=== PATIENT | male | born 1960 | race Caucasian/White ===

== ENCOUNTER 2016-03-20 16:00 | Outpatient (CLI) | payer MEDICAID | END 2016-03-20 16:01 | disposition home or self-care (01) | DX: H60.90 Unspecified otitis externa, unspecified ear (principal) ==

== ENCOUNTER 2018-03-23 08:00 | Outpatient (CLI) | payer MEDICAID ==
[2018-03-23 12:20] LABS: BASOPHILS # (AUTO) 0.1 10^3/uL (0.0-0.1); BASOPHILS % (AUTO) 1.1 %; EOSINOPHILS # (AUTO) 0.1 10^3/uL (0.0-0.7); LYMPHOCYTES # (AUTO) 1.6 10^3/uL (1.5-3.5); LYMPHOCYTES % (AUTO) 26.8 %; MEAN CORPUSCULAR HEMOGLOBIN 34.5 pg (27.0-31.0); MEAN CORPUSCULAR HGB CONC 34.9 g/dL (32.0-36.0); MEAN CORPUSCULAR VOLUME 98.7 fL (80.0-94.0); MEAN PLATELET VOLUME 8.4 fL (7.4-11.4); MONOCYTES # (AUTO) 0.8 10^3/uL (0.0-1.0); MONOCYTES % (AUTO) 13.4 %; NEUTROPHILS # (AUTO) 3.5 10^3/uL (1.5-6.6); NEUTROPHILS % (AUTO) 56.7 %; PLT - PLATELET COUNT 210 10^3/uL (130-450); RED BLOOD COUNT 4.35 10^6/uL (4.70-6.10); RED CELL DISTRIBUTION WIDTH 13.2 % (12.0-15.0); WHITE BLOOD COUNT 6.1 x10^3/uL (4.8-10.8)
[2018-03-23 13:30] LABS: ALBUMIN 3.9 g/dL (3.2-5.5); ALBUMIN/GLOBULIN RATIO 1.3 (1.0-2.2); ALKALINE PHOSPHATASE 63 IU/L (42-121); ALT ALANINE AMINOTRANSFERASE 23 IU/L (10-60); AST ASPARTATE AMINOTRANSFERASE 20 IU/L (10-42); BILIRUBIN,TOTAL 0.9 mg/dL (0.2-1.0); BUN - BLOOD UREA NITROGEN 15 mg/dL (6-20); CALCIUM 8.9 mg/dL (8.5-10.3); CARBON DIOXIDE - CO2 29 mmol/L (21-32); CHLORIDE 102 mmol/L (101-111); CHOL/HDL RATIO 2.8 (<5.0); CHOLESTEROL 143 mg/dL; CREATININE 0.7 mg/dL (0.6-1.2); GFR - MDRD 116 (>89); GLUCOSE 99 mg/dL (70-100); HDL CHOLESTEROL 52 mg/dL; LDL CHOLESTEROL,CALCULATED 75 mg/dL; LDL/HDL RATIO 1.4 (<3.6); SODIUM 136 mmol/L (135-145); TOTAL PROTEIN 6.9 g/dL (6.7-8.2); VLDL CHOLESTEROL 16 mg/dL
== END 2018-03-23 23:59 | disposition home or self-care (01) ==
LOC: LAB.WCP 08:00
PROVIDERS: ATTEND Physician Assistant Medical
DX: Z00.00 Encounter for general adult medical examination without abnormal findings (principal)
CPT/HCPCS: 36415; 80053; 80061; 83721; 84153; 84443; 85025

== ENCOUNTER 2018-06-02 09:34 | Emergency (ER) | payer MEDICAID ==
[2018-06-02] MEDS ORDERED: DEXAMETHASONE 10 MG/ML VIAL PO STA (10:39)
[2018-06-02] MEDS ORDERED: BENZONATATE 100 MG CAPSULE PO STA (10:39)
--- NOTE | 2018-06-02 10:42 | ED Physician Documentation ---
PD HPI URI - Stated complaint Stated Complaint: SOA,CHEST PX - Chief complaint Chief Complaint: Resp - History obtained from History obtained from: Patient, Friend - History of Present Illness Timing - onset: How many days ago (5) Timing duration: Days (5) Timing details: Gradual onset, Still present Associated symptoms: Fever, Chills, Sweats, Nasal congestion, Rhinorrhea, Productive cough, Dyspnea Contributing factors: Sick contact Improves by: Rest, Medication Similar symptoms before: Diagnosis (pnemonia) Recently seen: Clinic - Additional information Additional information: 57-year-old male with a history of allergic asthma has developed a cough and congestion he is bringing up yellow and green phlegm and he has been into see his doctor 2 days ago and was started on some doxycycline. He states that despite starting this antibiotic he has had no change in his symptoms and in fact they are worse. He does have an inhaler at home he does not feel that he needs to use that with this illness. Review of Systems Constitutional: reports: Fever Eyes: denies: Decreased vision Ears: denies: Ear pain Nose: reports: Rhinorrhea / runny nose, Congestion Throat: denies: Sore throat Cardiac: reports: Chest pain / pressure. denies: Palpitations, Pedal edema, Calf pain Respiratory: reports: Dyspnea, Cough GI: denies: Abdominal Pain, Nausea, Vomiting : denies: Dysuria PD PAST MEDICAL HISTORY - Past Surgical History Past Surgical History: Yes - Present Medications Home Medications: Ambulatory Orders Medication Instructions Recorded Confirmed Amox/Clav 875/125 [Augmentin] 1 each PO Q12H #20 tablet 06/02/18 Benzonatate [Tessalon Perle] 100 - 200 mg PO TID PRN #30 capsule 06/02/18 Disulfiram [Antabuse] 250 mg PO 06/02/18 Doxycycline Monohydrate 100 mg PO 06/02/18 Hydrocodone/Acetaminophen 1 - 2 each PO Q6H PRN #14 tablet 06/02/18 [Hydrocodon-Acetaminophen 5-325] Quetiapine Fumarate 50 mg PO 06/02/18 06/02/18 - Allergies Allergies/Adverse Reactions: Allergies Allergy/AdvReac Type Severity Reaction Status Date / Time No Known Drug Allergies Allergy Verified 06/02/18 09:44 - Social History Does the pt smoke?: Yes Smoking Status: Current every day smoker Does the pt drink ETOH?: Yes Does the pt have substance abuse?: No - Immunizations Immunizations are current?: Yes - POLST Patient has POLST: No PD ED PE NORMAL - Vitals Vital signs reviewed: Yes (tachy ) - General General: Alert and oriented X 3, Well developed/nourished, Other (coughing hard and frequently at this hurts. ) - HEENT HEENT: Atraumatic, PERRL, EOMI, Other (There is inflamation to the right TM with rounding of the umbo and the left is less involved. The mucous membranes are dry. 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, No motor deficit, No sensory deficit, Normal speech Eye Opening: Spontaneous Motor: Obeys Commands Verbal: Oriented GCS Score: 15 - Psych Psych: Normal mood, Normal affect Results - Vitals Vitals: Vital Signs - 24 hr 06/02/18 06/02/18 09:42 11:38 Temperature 37.1 C 37.2 C Heart Rate 115 H 98 Respiratory 22 20 Rate Blood Pressure 106/75 137/93 H O2 Saturation 92 92 Oxygen O2 Source Room air - EKG (time done) 0943 Rate: Rate (enter#) (109) Rhythm: Sinus tachycardia Outlook: RAD Ischemia: Q waves Compare to prior EKG: Old EKG unavailable Computer interpretation: Disagree with computer (I do not see any evidence of ST elevation ) - Labs Labs: Laboratory Tests 06/02/18 09:50 Influenza A (Rapid) Negative Influenza B (Rapid) Negative - Rads (name of study) chest 2-veiw Radiology: Prelim report reviewed (Impression: No definite acute airspace consolidation.), EMP read indepedently, See rad report PD MEDICAL DECISION MAKING - ED course Complexity details: reviewed results, re-evaluated patient, considered differential, d/w patient ED course: 57-year-old male with a prior history of allergic asthma and pneumonia has developed URI symptoms coughing up yellow-green phlegm and has otitis on exam. He is administered dexamethasone 10 mg orally and Tessalon. The chest x-ray is pending. Departure - Departure Disposition: 01 Home, Self Care Clinical Impression: Otitis media Qualifiers: Otitis media type: suppurative Chronicity: acute Laterality: bilateral Recurrence: not specified as recurrent Spontaneous tympanic membrane rupture: without spontaneous rupture Qualified Code(s): H66.003 - Acute suppurative otitis media without spontaneous rupture of ear drum, bilateral Condition: Stable Instructions: ED Otitis Media Acute Adult Follow-Up: Tim Trotter MD [Primary Care Provider] - Prescriptions: Amox/Clav 875/125 [Augmentin] 1 each PO Q12H #20 tablet Benzonatate [Tessalon Perle] 100 - 200 mg PO TID PRN #30 capsule PRN Reason: Cough Hydrocodone/Acetaminophen [Hydrocodon-Acetaminophen 5-325] 1 - 2 each PO Q6H PRN #14 tablet PRN Reason: pain Forms: Activity restrictions Discharge Date/Time: 06/02/18 11:39
--- NOTE | 2018-06-02 11:18 | XRAY Report ---
Reason: cough Procedure Date: 06/02/2018 Accession Number: [id number] / [id number] Procedure: XR - Chest 2 View X-Ray CPT Code: 33293 FULL RESULT: EXAM: CHEST RADIOGRAPHY EXAM DATE: 06/02/2018 10:58 AM. CLINICAL HISTORY: Cough. COMPARISON: XR CHEST PA AND LAT 03/15/2008 9:22 AM. TECHNIQUE: 2 views. FINDINGS: Lungs/Pleura: No focal opacities evident. No pleural effusion. No pneumothorax. Normal volumes. Mediastinum: Heart and mediastinal contours are stable without cardiac enlargement. Other: None. IMPRESSION: No definite acute airspace consolidation. RADIA
[2018-06-02 11:39] VITALS: BP 137/93
== END 2018-06-02 11:39 | disposition home or self-care (01) ==
LOC: ED 09:34
DX: H66.003 Acute suppurative otitis media without spontaneous rupture of ear drum, bilateral (principal); R05 Cough; R50.9 Fever, unspecified; F17.200 Nicotine dependence, unspecified, uncomplicated; R07.89 Other chest pain; J34.89 Other specified disorders of nose and nasal sinuses; R09.81 Nasal congestion; R06.00 Dyspnea, unspecified
CPT/HCPCS: 71046; 87275; 87276; 93005; 99283; A9270

== ENCOUNTER 2018-07-14 11:48 | Outpatient (CLI) | payer MEDICAID ==
--- NOTE | 2018-07-14 12:30 | XRAY Report ---
Reason: BRONCHITIS,ACUTE Procedure Date: 07/14/2018 Accession Number: [id number] / [id number] Procedure: WCP - Chest 2 View X-Ray CPT Code: 91427 FULL RESULT: EXAM: CHEST RADIOGRAPHY EXAM DATE: 07/14/2018 12:02 PM. CLINICAL HISTORY: Bronchitis, acute. COMPARISON: CHEST 2 VIEW 06/02/2018 10:44 AM. TECHNIQUE: 2 views. FINDINGS: Lungs/Pleura: No focal opacities evident. No pleural effusion. No pneumothorax. Flattening of diaphragms with high lung volumes is redemonstrated. Mediastinum: The cardiomediastinal silhouette is stable without cardiomegaly. Other: None. IMPRESSION: Suspect obstructive lung disease. No acute airspace disease is seen. RADIA
== END 2018-07-14 11:49 | disposition home or self-care (01) ==
LOC: DI.WCP 11:48
PROVIDERS: ATTEND Physician Assistant Medical
DX: J20.9 Acute bronchitis, unspecified (principal)
CPT/HCPCS: 71046

== ENCOUNTER 2018-08-15 09:38 | Outpatient (CLI) | payer OTHER, MEDICAID ==
--- NOTE | 2018-08-15 10:35 | XRAY Report ---
Reason: STRAIN OF RIGHT ACHILLES TENDON,INITIAL ENCOUNTER Procedure Date: 08/15/2018 Accession Number: [id number] / [id number] Procedure: WCP - Ankle 3 View RT CPT Code: FULL RESULT: EXAM: RIGHT ANKLE RADIOGRAPHY EXAM DATE: 08/15/2018 09:53 AM. CLINICAL HISTORY: STRAIN OF RIGHT ACHILLES Tendon, initial ENCOUNTER. COMPARISON: None. TECHNIQUE: 3 views. FINDINGS: Bones: Normal. No fractures or bone lesions. Joints: Normal. No effusion. No subluxations. The ankle mortise is normally aligned. Soft Tissues: Moderate posterior calcaneal bone spur. Small plantar calcaneal bone spur. IMPRESSION: 1. Moderate posterior calcaneal bone spur at insertion of calcaneal tendon. 2. Otherwise negative exam. RADIA
== END 2018-08-15 09:39 | disposition home or self-care (01) ==
LOC: DI.WCP 09:38
PROVIDERS: ATTEND Physician Assistant Medical
DX: M77.31 Calcaneal spur, right foot (principal)

== ENCOUNTER 2018-10-06 09:27 | Outpatient (CLI) | payer OTHER, MEDICAID ==
--- NOTE | 2018-10-07 12:19 | MRI Report ---
Reason: STRAIN OF RIGHT ACHILLES TENDON Procedure Date: 10/06/2018 Accession Number: [id number] / [id number] Procedure: MRI - Ankle RT W/O CPT Code: FULL RESULT: EXAM: RIGHT ANKLE/HINDFOOT MRI WITHOUT CONTRAST EXAM DATE: 10/06/2018 11:57 AM. CLINICAL HISTORY: STRAIN OF RIGHT ACHILLES TENDON. COMPARISON: ANKLE 3 VIEW RT 08/15/2018 9:34 AM. TECHNIQUE: Multiplanar, multisequence T1-weighted and fluid-sensitive sequences of the ankle/hindfoot without contrast. Other: None. FINDINGS: Bones and articular surfaces: Small amount of patchy subcortical marrow edema at the posterior superior aspect of the calcaneus. No significant ankle joint effusion. No talar dome osteochondral lesions. Subtalar, calcaneocuboid and talonavicular joints are unremarkable. Musculotendinous structures: There is thickening of the distal Achilles tendon. Abnormal increased signal and abnormal morphology involving the deep fibers of the Achilles tendon at and immediately adjacent to the calcaneal insertion consistent with partial tear measuring approximately 0.7 x 1.2 cm transverse and 1.7 cm craniocaudad. Anterior, posterior and posterolateral ankle tendons otherwise appear intact. Plantar fascia intact. No significant muscle fatty replacement within the field of view. Ligaments: The anterior and posterior talofibular, calcaneofibular and deltoid ligaments appear intact. IMPRESSION: 1. Tendinosis and intermediate grade partial tear at the distal Achilles tendon with adjacent reactive marrow edema at the posterior superior calcaneus. RADIA
== END 2018-10-06 09:28 | disposition home or self-care (01) ==
LOC: DI 09:27
PROVIDERS: ATTEND Physician Assistant Medical
DX: S86.011A Strain of right Achilles tendon, initial encounter (principal); R60.0 Localized edema

== ENCOUNTER 2019-07-08 14:16 | Observation (INO) | payer MEDICAID, OTHER ==
[2019-07-08] MEDS ORDERED: DILTIAZEM 125 MG in DEXTROSE 5% 100 ML IV STA (14:33)
--- NOTE | 2019-07-08 14:41 | ED Physician Documentation ---
History of Present Illness - Stated complaint Stated Complaint: FAST HR - Chief complaint Chief Complaint: Cardiac - History obtained from History obtained from: Patient - History of Present Illness Timing: How many days ago (5) Pain level max: 3 Pain level now: 2 - Additonal information Additional information: 58-year-old male presents to the emergency department complaining of palpitations for the past 4 to 5 days. He was admitted to [facility] for same on Wednesday. Placed on a diltiazem drip and discharged on diltiazem. He has been having palpitations since he went home. Has been feeling tired and short of breath as well. Came in for evaluation. Patient states he is not on anticoagulation Review of Systems Constitutional: denies: Fever, Chills Nose: denies: Rhinorrhea / runny nose, Congestion Throat: denies: Sore throat Cardiac: reports: Palpitations Respiratory: reports: Dyspnea. denies: Cough GI: denies: Abdominal Pain, Nausea, Vomiting, Diarrhea Skin: denies: Rash Musculoskeletal: denies: Neck pain, Back pain Neurologic: denies: Headache PD PAST MEDICAL HISTORY - Past Medical History Past Medical History: Yes Cardiovascular: Atrial fibrillation - Past Surgical History Past Surgical History: Yes - Present Medications Home Medications: Ambulatory Orders Medication Instructions Recorded Confirmed Albuterol Sulfate [Albuterol 2 puffs INH Q6H PRN 07/08/19 07/08/19 Sulfate Hfa] Diltiazem HCl [Diltiazem ER] 120 mg PO DAILY 07/08/19 07/08/19 predniSONE [Prednisone] 20 mg PO DAILY 07/08/19 07/08/19 - Allergies Allergies/Adverse Reactions: Allergies Allergy/AdvReac Type Severity Reaction Status Date / Time No Known Drug Allergies Allergy Verified 07/08/19 14:25 - Living Situation Living Arrangement: reports: At home - Social History Does the pt smoke?: Yes Smoking Status: Current every day smoker Does the pt drink ETOH?: Yes Does the pt have substance abuse?: No - Immunizations Immunizations are current?: Yes - POLST Patient has POLST: No PD ED PE NORMAL - Vitals Vital signs reviewed: Yes - General General: Alert and oriented X 3, No acute distress, Well developed/nourished - HEENT HEENT: Moist mucous membranes - Neck Neck: Supple, no meningeal sign - Cardiac Cardiac: No murmur, Strong equal pulses, Other (Tachycardic) - Respiratory Respiratory: No respiratory distress, Clear bilaterally - Abdomen Abdomen: Soft, Non tender, Non distended - Derm Derm: Warm and dry, No rash - Extremities Extremities: No edema, No calf tenderness / cord - Neuro Neuro: Alert and oriented X 3 - Psych Psych: Normal mood, Normal affect Results - Vitals Vitals: Vital Signs - 24 hr 07/08/19 07/08/19 07/08/19 14:25 14:29 14:31 Temperature 36.8 C Heart Rate 120 H 140 H 122 H Respiratory 18 20 16 Rate Blood Pressure 138/98 H 132/92 H 142/92 H O2 Saturation 98 95 100 07/08/19 15:01 Temperature Heart Rate 109 H Respiratory 20 Rate Blood Pressure 125/83 H O2 Saturation 96 Oxygen O2 Source Room air - EKG (time done) 1427 Rate: Rate (enter#) (149) Rhythm: Atrial flutter [place]: Posterior hemiblock (Left posterior fascicular block) QRS: Normal Ischemia: Non specific changes (Likely rate related) - Labs Labs: Laboratory Tests 07/08/19 07/08/19 07/08/19 14:45 14:45 14:45 WBC 8.2 RBC 5.45 Hgb 18.2 H Hct 52.2 H MCV 95.8 H MCH 33.4 H MCHC 34.9 RDW 12.7 Plt Count 262 MPV 9.0 Neut # (Auto) 6.7 H Lymph # (Auto) 0.9 L [place] # (Auto) 0.5 Eos # (Auto) 0.0 Baso # (Auto) 0.0 Absolute Nucleated RBC 0.00 Nucleated RBC % 0.0 Sodium 133 L Potassium 3.8 Chloride 95 L Carbon Dioxide 24 Anion Gap 14.0 H BUN 35 H Creatinine 1.4 H Estimated GFR (MDRD) 52 L Glucose 144 H Calcium 10.3 Phosphorus Magnesium Total Bilirubin 0.9 AST 30 ALT 31 Alkaline Phosphatase 70 Troponin I High Sens 5.1 Total Protein 7.5 Albumin 4.1 Globulin 3.4 Albumin/Globulin Ratio 1.2 Lipase 36 07/08/19 14:45 WBC RBC Hgb Hct MCV MCH MCHC RDW Plt Count MPV Neut # (Auto) Lymph # (Auto) [place] # (Auto) Eos # (Auto) Baso # (Auto) Absolute Nucleated RBC Nucleated RBC % Sodium Potassium Chloride Carbon Dioxide Anion Gap BUN Creatinine Estimated GFR (MDRD) Glucose Calcium Phosphorus 3.8 Magnesium 1.9 Total Bilirubin AST ALT Alkaline Phosphatase Troponin I High Sens Total Protein Albumin Globulin Albumin/Globulin Ratio Lipase - Rads (name of study) cxr Radiology: Prelim report reviewed, EMP read contemporaneously, See rad report (Hyperinflated. No active cardiopulmonary disease. ) PD MEDICAL DECISION MAKING - ED course Complexity details: reviewed results, re-evaluated patient, considered differential, d/w patient ED course: Patient is symptomatic with atrial fibrillation with rapid ventricular response. Placed on a diltiazem drip and records from [facility] were obtained. Will place him in observation for further care. Will likely need medication adjusted as well. Discussed the case Dr. Tyler, hospitalist who accepts. This document was made in part using voice recognition software. While efforts are made to proofread this document, sound alike and grammatical errors may occur. Departure - Departure Disposition: ED Place in Observation Clinical Impression: Atrial fibrillation with RVR Condition: Stable
[2019-07-08] MEDS ORDERED: DILTIAZEM 50 MG/10 ML VIAL IVP STA ×2 (14:50→15:21)
--- NOTE | 2019-07-08 14:50 | XRAY Report ---
Reason: Chest pain Procedure Date: 07/08/2019 Accession Number: [id number] / [id number] Procedure: XR - Chest 1 View X-Ray CPT Code: 07001 Final Report FULL RESULT: EXAM: CHEST RADIOGRAPHY EXAM DATE: 07/08/2019 02:39 PM. CLINICAL HISTORY: Chest pain. COMPARISON: CHEST 2 VIEW 07/14/2018 11:44 AM. TECHNIQUE: 1 view. FINDINGS: Lungs/Pleura: No focal opacities evident. No pleural effusion. No pneumothorax. Mediastinum: Within exam limitations, the cardiomediastinal contour is normal. Other: Old bilateral rib fractures IMPRESSION: Hyperinflated. No active cardiopulmonary disease. RADIA
[2019-07-08 14:51] LABS: BASOPHILS % (AUTO) 0.4 %; HGB - HEMOGLOBIN 18.2 g/dL (14.0-18.0); LYMPHOCYTES # (AUTO) 0.9 10^3/uL (1.5-3.5); LYMPHOCYTES % (AUTO) 11.4 %; MEAN CORPUSCULAR HEMOGLOBIN 33.4 pg (27.0-31.0); MEAN CORPUSCULAR HGB CONC 34.9 g/dL (32.0-36.0); MEAN CORPUSCULAR VOLUME 95.8 fL (80.0-94.0); MONOCYTES # (AUTO) 0.5 10^3/uL (0.0-1.0); MONOCYTES % (AUTO) 6.1 %; NEUTROPHILS # (AUTO) 6.7 10^3/uL (1.5-6.6); NEUTROPHILS % (AUTO) 81.4 %; PLT - PLATELET COUNT 262 10^3/uL (130-450); RED BLOOD COUNT 5.45 10^6/uL (4.70-6.10); RED CELL DISTRIBUTION WIDTH 12.7 % (12.0-15.0); WHITE BLOOD COUNT 8.2 x10^3/uL (4.8-10.8)
[2019-07-08 15:05] LABS: ALBUMIN 4.1 g/dL (3.2-5.5); ALBUMIN/GLOBULIN RATIO 1.2 (1.0-2.2); BILIRUBIN,TOTAL 0.9 mg/dL (0.2-1.0); CALCIUM 10.3 mg/dL (8.5-10.3); CREATININE 1.4 mg/dL (0.6-1.2); TOTAL PROTEIN 7.5 g/dL (6.7-8.2)
[2019-07-08 15:10] LABS: MAGNESIUM 1.9 mg/dL (1.7-2.8); PHOSPHORUS 3.8 mg/dL (2.5-4.6)
[2019-07-08] MEDS ORDERED: SODIUM CHLORIDE 0.9% 1,000 ML IV ONE ×2 (15:14)
[2019-07-08] MEDS ORDERED: ACETAMINOPHEN 325 MG TABLET PO PRN (15:19)
[2019-07-08] MEDS ORDERED: SODIUM CHLORIDE FLUSH 0.9% 10 ML SYRINGE IVP PRN (15:19)
--- NOTE | 2019-07-08 15:22 | HISTORY & PHYSICAL EXAMINATION ---
Chief Complaint - Chief Complaint Chief Complaint: Fast heart rate History of Present Illness - Admitted From Admitted From:: Home - History Obtained From Records Reviewed: Yes History obtained from: Patient, ER Physician, EMR, DC Summary from [facility] - History of Present Illness HPI Comment/Other: This is a 58-year-old male with a past medical history significant for newly diagnosed atrial fibrillation, COPD, tobacco abuse who presents today compl aining of a fast heart rate at home. He reports he was admitted last week at [facility] on July 02 after he was complaining of a cough at work. A nurse evaluated him and found him to have an elevated heart rate and so he was referred to the emergency department. He is admitted for a [facility] rapid ventricular response. He started on diltiazem drip and was ultimately was discharged on oral diltiazem 120 mg milligrams daily. He had converted to sinus rhythm prior to discharge. An echocardiogram obtained showed normal ejection fraction with a mildly dilated right ventricle with normal function. The aortic root did have a probable grade 3 atheroma consistent with ASVD. He reports after he was discharged he did well the first day but then his symptoms returned and he felt dyspneic with chest pressure. 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 He normally commutes from the [place] to work. He spent 2 nights at a motel before he got picked up by for member to go back to the [place]. He states that today he kept checking his heart rate and he noticed it had been irregular going from the 80s only up to the 120s at times. He continued to have dyspnea and chest pressure and so he came to the emergency department. He states that he has 2 different kinds of chest pain. One is a chest pressure that is present at times and is achy and dull. It is not necessarily worse with exertion but he finds it is present when his heart rate becomes elevated. His other type of chest pain is a sharp pain which comes and goes sporadically. There are no obvious alleviating or aggravating remitting factors. He currently denies having any chest pain. He does smoke a pack a day but has not smoked since he was discharged from [facility]. He has been on nicotine patch since then and has been doing well. He reports no prior history of diabetes. He was taking a baby aspirin daily up until about a month ago as he just became inconsistent with taking it. He reports no prior history of DVT and he is quite active. He is not had any recent surgeries and no family history of thrombosis. He reports his grandmother did pass away from a myocardial infarction although she was an alcoholic. He reports no other cardiac history in his family. He currently does not drink any alcohol after quitting over a year and a half ago but was previously drinking on a regular basis for approximately 20 years but quit after going through rehab. Currently complains of some dyspnea. Reports no cough. He does have a headache. Denies any nausea, vomiting, abdominal pain. In the emergency department, he was found to be afebrile with temperature of 36.8 C. His heart rate is elevated in the 140s. His blood pressure is 138/98. He was not tachypneic and saturating well on room air. Labs are significant for hemoglobin of 18.2 which is increased compared to 14.8 from his prior labs at [facility]. His creatinine is also elevated at 1.4 compared to his baseline of 0.7. His EKG showed age fibrillation with rapid ventricular respo nse without any significant ST segment changes. He was given diltiazem 10 mg IV and started on a diltiazem drip in the emergency department. His heart rates remained in the 120s and therefore medicine was consulted for admission. History - Past Medical History Cardiovascular: reports: Atrial fibrillation Respiratory: reports: COPD MRSA Hx?: No - Past Surgical History General: reports: Other (He had a left inguinal hernia repair.) Other past surgical history: He had an eye surgery when he was 14. - Family & Social History Family History Comment/Other: Reports father from infection after back surgery. He did have colon cancer. His mother from alco holism. His grandmother passed from myocardial infarction but she also suffers from alcoholism. 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 He does not drink alcohol after quitting a year and a half ago after going through rehab. He previously drank on a daily basis for over 20 years. He has a smoking a pack a day since the age of 13. He has not smoked since he was discharged from [facility] last week. He has been compliant with a nicotine patch. - POLST Patient has POLST: No Meds/Allgy - Home Medications Home Medications: Ambulatory Orders Medication Instructions Recorded Confirmed Albuterol Sulfate [Albuterol 2 puffs INH Q6H PRN 07/08/19 07/08/19 Sulfate Hfa] Diltiazem HCl [Diltiazem ER] 120 mg PO DAILY 07/08/19 07/08/19 predniSONE [Prednisone] 20 mg PO DAILY 07/08/19 07/08/19 - Allergies Allergies/Adverse Reactions: Allergies Allergy/AdvReac Type Severity Reaction Status Date / Time No Known Drug Allergies Allergy Verified 07/08/19 14:25 Review of Systems - Constitutional Constitutional: reports: Malaise. denies: Fatigue, Fever, Chills - Eyes Eyes: reports: Blurred vision, Corrective lenses - Cardiovascular Cariovascular: reports: Irregular heart rate, Palpitations, Chest pain, Exertional dyspnea, Decr. exercise tolerance. denies: Edema, Lightheadedness - Respiratory Respiratory: reports: SOB at rest, SOB with exertion. denies: Cough - Gastrointestinal Gastrointestinal: denies: Abdominal pain, Nausea, Vomiting - Genitourinary Genitourinary: denies: Dysuria, Frequency, Urgency - Musculoskeletal Musculoskeletal: denies: Muscle pain, Limited range of motion, Muscle weakness - Integumentary Integumentary: denies: Rash - Neurological Neurological: reports: Headache. denies: General weakness, Focal weakness - All Other Systems All Other Systems: reports: Reviewed and negative Prior Level of Functionality: He is independent with his ADLs. Exam - Vital Signs Reviewed Vital Signs: Yes Vital Signs: Vital Signs x48h Temp Pulse Resp BP Pulse Ox 07/08/19 15:01 109 H 20 125/83 H 96 07/08/19 14:31 122 H 16 142/92 H 100 07/08/19 14:29 140 H 20 132/92 H 95 07/08/19 14:25 36.8 C 120 H 18 138/98 H 98 - Physical Exam General Appearance: positive: No acute distress, Alert Eyes Bilateral: positive: Normal inspection, Conjunctivae nml ENT: positive: ENT inspection nml Neck: positive: Nml inspection Respiratory: positive: No respiratory distress. negative: Wheezes, Rales, Rhonchi Cardiovascular: positive: No murmur, Irregularly irregular, Tachycardia. negative: Regular rate & rhythm, Bradycardia, Systolic murmur, Diastolic murmur Abdomen: positive: Non-tender, No distention. negative: Tenderness, Guarding, Rebound Skin: positive: No rash, Warm, Dry Extremities: positive: Full ROM, No pedal edema. negative: Geri's sign/cords Neurologic/Psychiatric: positive: Oriented x3, Motor nml, Sensation nml. negative: Disoriented to person, Disoriented to place, Disoriented to time Conclusion/Plan - Problem List (1) Atrial fibrillation with RVR Conclusion/Plan: Presents once again in atrial fibrillation with rapid ventricular response and heart rates in the 140s. His troponin is negative. His echocardiogram at [facility] showed a preserved ejection fraction without any significant abnormalities. TSH at that time was within normal limits at 0.480. He received diltiazem 10 mg IV in the emergency department and placed on a diltiazem drip. At this time, we will give another 10 mg of IV diltiazem and continue the diltiazem drip. We will start him on 60 mg of oral Cardizem IV every 6 hours. We will hope to change him off the diltiazem drip this evening or tomorrow and transition to oral diltiazem. His [id number] score is 0 and therefore he does not need anticoagulation. He was on a baby aspirin before and we did discuss the risks and benefits of this. He will decide whether he would want to continue with a baby aspirin daily or not. (2) Chest pain Conclusion/Plan: Suspect his chest pain is secondary to the atrial fibrillation with rapid vent ricular response. There is low suspicion for ACS at the moment given his initial troponin is negative and his EKG does not suggest ischemia. He also does not currently have any active chest pain. An echocardiogram performed last week showed a preserved ejection fraction. We will continue to trend his troponin and monitor him on telemetry. (3) JS (acute kidney injury) Conclusion/Plan: This is likely prerenal injury given he appears dehydrated clinically and has acute kidney injury as well as likely hemoconcentration. We will place him on IV saline and monitor his renal function and urine output. Avoid nephrotoxic medications. (4) Hyponatremia Conclusion/Plan: This is likely hypovolemic hyponatremia as he appears dehydrated on exam. We will hydrate him with IV saline and recheck labs in the morning. (5) Dehydration Conclusion/Plan: Appears to be hemoconcentrated given his labs showed hemoglobin of 18 and it was 15 on discharge from [facility]. His creatinine is also elevated at 1.4 compared to baseline of 0.7. We will continue with IV saline. Check labs in the morning. (6) COPD (chronic obstructive pulmonary disease) Conclusion/Plan: Stable does not appear to be in exacerbation. He was prescribed prednisone on discharge from [facility]. We will not continue the prednisone given it has been approximately 5 days since discharge. - Lab Results Lab results reviewed: Yes Fish Bones: 07/08/19 14:45 07/08/19 14:45 - Diagnostic Imaging Results Diagnostic Imaging Results: positive: Final report reviewed - EKG Results EKG Interpreted Independently: Yes EKG Comparison: Changed from prior EKG (Atrial fibrillation is now present.) EKG Findings: EKG shows atrial fibrillation with rapid ventricular response. No obvious ST segment changes. Core Measures - Anticipated LOS I expect patient to be DC'd or transferred within 96 hours.: Yes - Issues Hospital Issues and Management Plan: 58-year-old male with newly diagnosed atrial fibrillation now in rapid ventricular response. We will admit under observation for rate control with IV diltiazem. - DVT/VTE - Prophylaxis VTE/DVT Device ordered at admit?: Yes VTE/DVT Prophylaxis med ordered at admit?: Yes
[2019-07-08] MEDS ORDERED: DILTIAZEM 125 MG in DEXTROSE 5% 100 ML IV SCH ×2 (16:00→18:00)
[2019-07-08] MEDS ORDERED: ALBUTEROL NEB 2.5 MG/3 ML INH PRN (16:33)
[2019-07-08] MEDS: SODIUM CHLORIDE 0.9% 1,000 ML IV SCH (18:08)
[2019-07-08] MEDS: SODIUM CHLORIDE FLUSH 0.9% 10 ML SYRINGE IVP SCH ×2 (18:13→23:28)
[2019-07-08] MEDS ORDERED: traZODone 50 MG TABLET PO SCH (21:00)
[2019-07-09] MEDS: SODIUM CHLORIDE 0.9% 1,000 ML IV SCH (03:05)
[2019-07-09 05:03] LABS: BASOPHILS # (AUTO) 0.1 10^3/uL (0.0-0.1); BASOPHILS % (AUTO) 0.8 %; EOSINOPHILS # (AUTO) 0.1 10^3/uL (0.0-0.7); EOSINOPHILS % (AUTO) 0.9 %; HGB - HEMOGLOBIN 15.5 g/dL (14.0-18.0); LYMPHOCYTES # (AUTO) 3.1 10^3/uL (1.5-3.5); LYMPHOCYTES % (AUTO) 36.3 %; MEAN CORPUSCULAR HEMOGLOBIN 33.4 pg (27.0-31.0); MEAN CORPUSCULAR HGB CONC 34.4 g/dL (32.0-36.0); MEAN CORPUSCULAR VOLUME 97.2 fL (80.0-94.0); MEAN PLATELET VOLUME 9.3 fL (7.4-11.4); MONOCYTES # (AUTO) 0.8 10^3/uL (0.0-1.0); MONOCYTES % (AUTO) 9.3 %; NEUTROPHILS # (AUTO) 4.5 10^3/uL (1.5-6.6); NEUTROPHILS % (AUTO) 52.1 %; PLT - PLATELET COUNT 190 10^3/uL (130-450); RED BLOOD COUNT 4.64 10^6/uL (4.70-6.10); RED CELL DISTRIBUTION WIDTH 13.1 % (12.0-15.0); WHITE BLOOD COUNT 8.6 x10^3/uL (4.8-10.8)
[2019-07-09 05:15] LABS: CALCIUM 8.6 mg/dL (8.5-10.3); MAGNESIUM 2.1 mg/dL (1.7-2.8); PHOSPHORUS 3.9 mg/dL (2.5-4.6)
[2019-07-09] MEDS ORDERED: POTASSIUM CHLORIDE 20 MEQ TABLET PO ONE (05:19)
[2019-07-09 05:33] LABS: HB2 TOTAL 16.1 g/dL; HEMOGLOBIN A1C 0.64 g/dL; HEMOGLOBIN A1C % 5.8 % (4.6-6.2)
--- NOTE | 2019-07-09 06:40 | PHARMACY PROGRESS NOTE ---
- Best Possible Medication History Admit Date and Time: 07/08/19 1519 Processed by: Pharmacy Medication History completed: Yes Secondary Source(s): Physician records, Pharmacy records, Insurance records, Previous admit records As the person ultimately responsible for medication therapy, providers are able to order a medication from an existing home medication list in [facility] via the "Reconcile Routine" prior to Confirmation of that medication by shipping support clerk. Such practice is discouraged except when the physician, in their clinical judgment, deems that a medical need exists for a medication without regard to previous use.
--- NOTE | 2019-07-09 07:22 | Discharge Plan ---
Discharge Plan Problem Reviewed?: Yes Disposition: Home, Self Care Condition: Good Prescriptions: dilTIAZem HCl [Diltiazem 24Hr ER (Cd)] 240 mg PO DAILY #30 cap.er.24h Nicotine 14 mg Patch [Nicoderm] 1 each TOP Q24H #14 patch Diet: Diabetic (Limit your sugar intake to prevent the development of diabetes. Also, limit your caffeine use as that can contribute to an elevated heart rate.) Activity Restrictions: Activity as Tolerated Shower Restrictions: No Driving Restrictions: No Instruction Topics: Prediabetes, Atrial Fibrillation Dc Health Concerns: You were admitted to the hospital because of a fast heart rate due to your atrial fibrillation. You required IV medication to control your heart rate. He converted back to a normal rhythm. Your diltiazem dose has been increased to 240 mg daily from 120 mg daily. There is a risk of stroke with A. fib but given your age and risk factors, this is low risk for you. You can consider taking a baby aspirin every day. While you were here in the hospital, your blood sugars have been slightly elevated and it was found that you have what is called prediabetes. This does not mean that you are diabetic but you are at risk for developing diabetes. Please see the handout attached for more information. You also had signs of dehydration when you were admitted to the hospital. This has improved with IV fluids. Continue to maintain oral hydration and good dietary intake at home. Plan of Treatment: Your diltiazem dose has been increased to 240 mg daily. A new prescription has been sent to your pharmacy. You do not need to take the prednisone that was previously prescribed. Care Goals: Please follow-up with your primary care physician within 1 week. If you have similar symptoms then please return to the emergency department. Assessment: The patient expressed understanding of the treatment plan. No Smoking: If you smoke, Please STOP! Call for help. Follow-up with: Yenny Willard PA-C [Primary Care Provider] -
[2019-07-09] MEDS: SODIUM CHLORIDE FLUSH 0.9% 10 ML SYRINGE IVP SCH (08:32)
--- NOTE | 2019-07-09 08:52 | DISCHARGE SUMMARY ---
Discharge Summary Admit Date: 07/08/19 Discharge Date: 07/09/19 Discharging Provider: Dino Arnold Primary Care Provider: Yenny Willard Code Status: Attempt Resuscitation Condition at Discharge: Good Discharge Disposition: 01 Home, Self Care - DIAGNOSES Admission Diagnoses: Atrial fibrillation with rapid ventricular response Chest pain JS Hyponatremia Dehydration COPD Discharge Diagnoses with Status of Each Condition: Paroxysmal atrial fibrillation - stable. Converted to sinus rhythm approximately 1 hour after being placed on a Cardizem drip. This was quickly transitioned off and he was started on oral Cardizem 60 mg every 6 hours and transition to 240 mg extended release daily in the morning. He has remained in a sinus rhythm and is able to ambulate without difficulty. He will be discharged on 240 mg daily. He does not need anticoagulation but we did discuss the risks and benefits of a baby aspirin daily. I have left the decision to him whether he would want to take a baby aspirin or not. I did tell him that based off of his [id number] score that the recommendation is no aspirin. Chest pain - resolved. His EKG did not show signs of ischemia. His troponins were negative. This was likely secondary to his atrial fibrillation. I did discuss with him that he may benefit from an outpatient stress test and he can follow-up with his primary care provider. JS - resolved. This improved with IV fluids. His creatinine was 1.0 on discharge which had improved from 1.4 but still slightly above his baseline of approximately 0.7. Hyponatremia - resolved. This improved with IV fluids. Dehydration - resolved. This improved with IV fluids. COPD - stable. Continue albuterol as needed. It was recommended that he follow- up with his primary care provider for PFTs. Prediabetes - stable. His A1c is 5.8%. This diagnosis was discussed with him and he was provided a handout on prediabetes. - HPI History of Present Illness: This is a 58-year-old male with a past medical history significant for newly diagnosed atrial fibrillation, COPD, tobacco abuse who presents today complaining of a fast heart rate at home. He reports he was admitted last week at [facility] on July 02 after he was complaining of a cough at work. A nurse evaluated him and found him to have an elevated heart rate and so he was referred to the emergency department. He is admitted for a tribulations rapid ventricular response. He started on diltiazem drip and was ultimately was discharged on oral diltiazem 120 mg milligrams daily. He had converted to sinus rhythm prior to discharge. An echocardiogram obtained showed normal ejection fraction with a mildly dilated right ventricle with normal function. The aortic root did have a probable grade 3 atheroma consistent with ASVD. He reports after he was discharged he did well the first day but then his symptoms returned and he felt dyspneic with chest pressure. 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 He spent 2 nights at a motel before he got picked up by for member to go back to the [place]. He states that today he kept checking his heart rate and he noticed it had been irregular going from the 80s only up to the 120s at times. He continued to have dyspnea and chest pressure and so he came to the emergency department. He states that he has 2 different kinds of chest pain. One is a chest pressure that is present at times and is achy and dull. It is not necessarily worse with exertion but he finds it is present when his heart rate becomes elevated. His other type of chest pain is a sharp pain which comes and goes sporadically. There are no obvious alleviating or aggravating remitting factors. He currently denies having any chest pain. He does smoke a pack a day but has not smoked since he was discharged from [facility]. He has been on nicotine patch since then and has been doing well. He reports no prior history of diabetes. He was taking a baby aspirin daily up until about a month ago as he just became inconsistent with taking it. He reports no prior history of DVT and he is quite active. He is not had any recent surgeries and no family history of thrombosis. He reports his grandmother did pass away from a myocardial infarction although she was an alcoholic. He reports no other cardiac history in his family. He currently does not drink any alcohol after quitting over a year and a half ago but was previously drinking on a regular basis for approximately 20 years but quit after going through rehab. Currently complains of some dyspnea. Reports no cough. He does have a headache . Denies any nausea, vomiting, abdominal pain. In the emergency department, he was found to be afebrile with temperature of 36.8 C. His heart rate is elevated in the 140s. His blood pressure is 138/98. He was not tachypneic and saturating well on room air. Labs are significant for hemoglobin of 18.2 which is increased compared to 14.8 from his prior labs at [facility]. His creatinine is also elevated at 1.4 compared to his baseline of 0.7. His EKG showed age fibrillation with rapid ventricular response without any significant ST segment changes. He was given diltiazem 10 mg IV and started on a diltiazem drip in the emergency department. His heart rates remained in the 120s and therefore medicine was consulted for admission. - HOSPITAL COURSE Hospital Course: He was admitted for atrial fibrillation with rapid ventricular response. He was given diltiazem 10 mg IV and started on diltiazem drip in the emergency department. He converted to sinus rhythm approximately 1 hour later. He was started on oral Cardizem 60 mg every 6 hours and the diltiazem drip was transitioned off. He was then placed on Cardizem 240 mg extended release daily. He did have acute kidney injury and hyponatremia on admission. He appeared hemoconcentrated based off of his labs on admission compared to the ones from discharge 1 week ago at [facility]. He was given a liter of saline in the emergency department and started on a saline infusion. His hyponatremia resolved. His creatinine improved to 1.0 from 1.4 on admission although still slightly above his baseline of 0.7. He was encouraged to increase his oral intake and hydration. His heart rate and blood pressure remained stable and he was discharged in good condition. An echocardiogram was not obtained as it is unavailable over the weekend and he had an echocardiogram last week at [facility] which showed a preserved ejection fraction. The report did not mention the left atrium volume. His TSH at that time was also within normal limits and so this was not rechecked. - ALLERGIES Allergies/Adverse Reactions: Allergies Allergy/AdvReac Type Severity Reaction Status Date / Time No Known Drug Allergies Allergy Verified 07/08/19 14:25 - MEDICATIONS Home Medications: Ambulatory Orders Medication Instructions Recorded Confirmed Albuterol Sulfate [Albuterol 2 puffs INH Q6H PRN 07/08/19 07/08/19 Sulfate Hfa] Nicotine 14 mg Patch [Nicoderm] 1 each TOP Q24H #14 patch 07/09/19 dilTIAZem HCl [Diltiazem 24Hr ER 240 mg PO DAILY #30 cap.er.24h 07/09/19 (Cd)] - PHYSICAL EXAM AT DISCHARGE General Appearance: positive: No acute distress, Alert Eyes Bilateral: positive: Normal inspection ENT: positive: ENT inspection nml, No signs of dehydration Neck: positive: Nml inspection Respiratory: positive: No respiratory distress. negative: Wheezes, Rales, Rhonchi Cardiovascular: positive: Regular rate & rhythm, No murmur. negative: Tachycardia, Bradycardia, Systolic murmur, Diastolic murmur Abdomen: positive: Non-tender, No distention. negative: Tenderness, Guarding, Rebound Skin: positive: No rash, Warm, Dry Extremities: positive: Full ROM, No pedal edema. negative: Geri's sign/cords Neurologic/Psychiatric: positive: Oriented x3. negative: Disoriented to person, Disoriented to place, Disoriented to time - LABS Result Diagrams: 07/09/19 04:44 07/09/19 04:44 - DIAGNOSTIC IMAGING Diagnostic Imaging Results: Final report reviewed - FOLLOW UP Follow Up: He is scheduled appointment with his primary care provider in a little over 1 week. He will be attempting to make an appointment this week. - TIME SPENT Time Spent in Discharge (Minutes): 30
[2019-07-09] MEDS ORDERED: diltiaZEM CD 120 MG CAPSULE PO SCH (09:00)
[2019-07-09] MEDS ORDERED: ENOXAPARIN 40 MG/0.4 ML SYRINGE SUBQ SCH (09:00)
[2019-07-09 10:57] VITALS: BP 117/91
== END 2019-07-09 11:00 | disposition home or self-care (01) ==
LOC: ED 14:16 → ICU 15:19
PROVIDERS: ADMIT Internal Medicine; ATTEND Internal Medicine
DX: I48.0 Paroxysmal atrial fibrillation (principal); R07.89 Other chest pain; N17.9 Acute kidney failure, unspecified; E87.1 Hypo-osmolality and hyponatremia; E86.0 Dehydration; J44.9 Chronic obstructive pulmonary disease, unspecified; R73.03 Prediabetes; Z87.891 Personal history of nicotine dependence; I70.0 Atherosclerosis of aorta
CPT/HCPCS: 36415; 71045; 80048; 80053; 83036; 83690; 83735; 84100; 84484; 85025; 87150; 93005; 96361; 96365; 96366; 96375; 99284; 99285; A9270; G0378

== ENCOUNTER 2019-11-30 10:36 | Outpatient (CLI) | payer MEDICAID ==
[2019-11-30 10:53] LABS: BASOPHILS # (AUTO) 0.1 10^3/uL (0.0-0.1); BASOPHILS % (AUTO) 1.7 %; EOSINOPHILS # (AUTO) 0.2 10^3/uL (0.0-0.7); EOSINOPHILS % (AUTO) 2.9 %; LYMPHOCYTES # (AUTO) 2.3 10^3/uL (1.5-3.5); LYMPHOCYTES % (AUTO) 35.2 %; MEAN CORPUSCULAR HEMOGLOBIN 32.6 pg (27.0-31.0); MEAN CORPUSCULAR VOLUME 98.6 fL (80.0-94.0); MEAN PLATELET VOLUME 9.6 fL (7.4-11.4); MONOCYTES # (AUTO) 0.6 10^3/uL (0.0-1.0); MONOCYTES % (AUTO) 8.5 %; NEUTROPHILS # (AUTO) 3.4 10^3/uL (1.5-6.6); NEUTROPHILS % (AUTO) 51.4 %; PLT - PLATELET COUNT 219 10^3/uL (130-450); RED CELL DISTRIBUTION WIDTH 12.3 % (12.0-15.0); WHITE BLOOD COUNT 6.6 x10^3/uL (4.8-10.8)
[2019-11-30] MEDS ORDERED: IOVERSOL 320 100 ML VIAL IVP ONE ×3 (11:02→13:40)
[2019-11-30 11:04] LABS: ALBUMIN 4.5 g/dL (3.2-5.5); ALBUMIN/GLOBULIN RATIO 1.7 (1.0-2.2); BILIRUBIN,TOTAL 0.7 mg/dL (0.2-1.0); CALCIUM 9.5 mg/dL (8.5-10.3); CREATININE 0.9 mg/dL (0.6-1.2); TOTAL PROTEIN 7.2 g/dL (6.7-8.2)
--- NOTE | 2019-11-30 14:03 | CT Report ---
PROCEDURE: ABDOMEN W/WO INDICATIONS: RENAL MASS CONTRAST: IV CONTRAST: Optiray 320 ml: 140, no oral contrast TECHNIQUE: After the administration of intravenous contrast, 5 mm thick sections acquired from the diaphragm to the symphysis. 5 mm coronal and sagittal reformats were acquired. For radiation dose reduction, the following was used: automated exposure control, adjustment of mA and/or kV according to patient siz e. COMPARISON: Renal ultrasound from [facility] dated 10/02/2019 which identified a probable exophytic solid right renal mass measuring 4.4 cm. FINDINGS: Image quality: Excellent. Lung bases: Lung bases are clear. Heart size is normal. Genitourinary: There is an exophytic complex mass off of the right kidney measuring 4.3 cm maximum d iameter. At minimum, it is a Bosniak 3 lesion, and likely a Bosniak 4 lesion. There is an enhancing s olid component measuring 19.5 Hounsfield units on noncontrast imaging, increasing to 50 Hounsfield un its on venous phase imaging. Solid organs: Liver and spleen are normal in size and enhancement. Gallbladder is unremarkable Kaleb iary system is non dilated. Pancreas enhances normally. No adrenal nodules. Peritoneum and bowel: Unenhanced bowel loops are normal in caliber and wall thickness. No free flui d or air. Nodes and vessels: No retroperitoneal or mesenteric adenopathy by size criteria. Aorta and inferior vena cava are normal in caliber. Bones: No suspicious bony lesions. No vertebral body compression fractures. Miscellaneous: No ventral hernias. IMPRESSION: 1. 4.3 cm maximum diameter exophytic right middle pole renal mass, either a Bosniak 3 or Bosniak 4 le chely, with high malignant potential. 2. No evidence of metastatic disease. Comment: Recommend urological consultation. Reviewed by: Presley Tubbs MD on 11/30/2019 2:01 PM PDT Approved by: Presley Tubbs MD on 11/30/2019 2:01 PM PDT Station ID: [id number]
== END 2019-11-30 10:37 | disposition home or self-care (01) ==
LOC: DI 10:36
PROVIDERS: ATTEND Physician Assistant Medical
DX: N28.89 Other specified disorders of kidney and ureter (principal); I48.91 Unspecified atrial fibrillation
CPT/HCPCS: 36415; 74170; 80053; 84443; 85025; Q9967

== ENCOUNTER 2019-12-11 19:42 | Outpatient (CLI) | payer MEDICAID | END 2019-12-11 19:43 | disposition critical access hospital (66) | LOC: EMS 19:42 | PROVIDERS: ATTEND Surgery | DX: R45.851 Suicidal ideations (principal) | CPT/HCPCS: A0425; A0427; A0999 ==

== ENCOUNTER 2019-12-11 19:54 | Observation (INO) | payer MEDICAID ==
[2019-12-11] MEDS ORDERED: SODIUM CHLORIDE 0.9% 1,000 ML IV STA (20:06)
--- NOTE | 2019-12-11 20:09 | ED Physician Documentation ---
<Jose Green - Last Filed: 12/11/19 20:58> History of Present Illness - Stated complaint Stated Complaint: ETOH/ SI - Chief complaint Chief Complaint: MHE - History obtained from History obtained from: Patient, EMS - History of Present Illness Timing: Today Pain level max: 0 Pain level now: 0 - Additonal information Additional information: Per EMS and the police, the patient was placed on an involuntary treatment act hold. They state that he told a friend in another state that he was going to kill himself by a "drinking himself to ". The friend told his family, his family called the police who placed him on a hold. EMS brought him here. Patient states he has attempted suicide 3 times in the past. He states he just wants to go home today. Patient states he does not remember how he attempted suicide in the past. He states he does have a counselor that he sees. Nothing makes this better or worse. Patient states that he stopped taking his medications at home a few days ago. He does not know what his medications are. Review of Systems Ten Systems: 10 systems reviewed and negative Constitutional: denies: Fever, Chills GI: denies: Vomiting, Diarrhea Skin: denies: Rash Musculoskeletal: denies: Neck pain, Back pain Neurologic: denies: Headache PD PAST MEDICAL HISTORY - Past Medical History Cardiovascular: Atrial fibrillation Respiratory: COPD, Pneumonia, Shortness of breath Neuro: None Endocrine/Autoimmune: None GI: None : None Psych: None Musculoskeletal: Chronic back pain, Other Derm: Other - Past Surgical History Past Surgical History: Yes General: Other - Present Medications Home Medications: Ambulatory Orders Medication Instructions Recorded Confirmed Albuterol Sulfate [Albuterol 2 puffs INH Q6H PRN 07/08/19 12/12/19 Sulfate Hfa] Nicotine 14 mg Patch [Nicoderm] 1 each TOP Q24H #14 patch 07/09/19 12/12/19 Buspirone HCl 10 mg PO BID 12/12/19 12/12/19 Famotidine [Acid Controller] 20 mg PO DAILY 12/12/19 12/12/19 Fluoxetine HCl [Prozac] 20 mg PO DAILY 12/12/19 12/12/19 Metoprolol Succinate [Toprol Xl] 50 mg PO DAILY 12/12/19 12/12/19 QUEtiapine [SEROquel] 12.5 mg PO QPM 12/12/19 12/12/19 - Allergies Allergies/Adverse Reactions: Allergies Allergy/AdvReac Type Severity Reaction Status Date / Time dogs,cats,dust Allergy Unknown Uncoded 12/11/19 19:58 - Social History Does the pt smoke?: Yes Smoking Status: Current every day smoker Does the pt drink ETOH?: Yes Does the pt have substance abuse?: No - Immunizations Immunizations are current?: Yes - POLST Patient has POLST: No PD ED PE NORMAL - Vitals Vital signs reviewed: Yes - General General: Alert and oriented X 3, No acute distress - HEENT HEENT: Atraumatic, PERRL, Moist mucous membranes - Neck Neck: Supple, no meningeal sign, No bony TTP - Cardiac Cardiac: RRR - Respiratory Respiratory: No respiratory distress, Clear bilaterally - Abdomen Abdomen: Soft, Non tender, Non distended - Derm Derm: Warm and dry - Extremities Extremities: No edema - Neuro Neuro: Alert and oriented X 3, digital account executive 2-12 intact, No motor deficit, No sensory deficit, Normal speech - Psych Psych: Normal mood, Normal affect PD MEDICAL DECISION MAKING - ED course Complexity details: reviewed results, re-evaluated patient, considered differential, d/w patient ED course: Patient will be re-evaluated when he stephen. He was given a dose of diltiazem for his atrial fibrillation with rapid ventricular response. Patient will be signed out to the oncoming emergency department physician. This document was made in part using voice recognition software. While efforts are made to proofread this document, sound alike and grammatical errors may occur. Departure - Departure Disposition: ED Place in Observation Clinical Impression: Suicidal ideation, Atrial fibrillation with RVR Alcohol intoxication Qualifiers: Complication of substance-induced condition: with unspecified complication Qualified Code(s): F10.929 - Alcohol use, unspecified with intoxication, unspecified Condition: Fair Discharge Date/Time: 12/12/19 13:33 <Cristóbal Rucker - Last Filed: 12/13/19 06:26> Results - Vitals Vitals: Vital Signs - 24 hr 12/12/19 12/12/19 12/12/19 07:00 09:00 10:30 Heart Rate 73 85 110 H Respiratory 16 14 19 Rate Blood Pressure 123/83 H 110/70 116/93 H O2 Saturation 93 95 95 12/12/19 12:00 Heart Rate 125 H Respiratory 23 Rate Blood Pressure 128/81 H O2 Saturation 96 Oxygen O2 Source Room air - EKG (time done) 02:56 Rate: Other (no STEMI, A FIB/FLUTTER) 05:53 Rate: Other (NSR, no STEMI) Rhythm: NSR - Labs Labs: Laboratory Tests 12/11/19 12/11/19 12/11/19 20:05 20:05 20:05 WBC 6.0 RBC 4.37 L Hgb 14.5 Hct 41.9 L MCV 95.9 H MCH 33.2 H MCHC 34.6 RDW 12.7 Plt Count 290 MPV 8.9 Neut # (Auto) 2.8 Lymph # (Auto) 2.2 Winn # (Auto) 0.8 Eos # (Auto) 0.1 Baso # (Auto) 0.1 Absolute Nucleated RBC 0.00 Nucleated RBC % 0.0 PT INR APTT VBG pH VBG pCO2 VBG pO2 VBG HCO3 VBG Total CO2 VBG O2 Saturation VBG Base Excess Sodium 143 Potassium 3.7 Chloride 102 Carbon Dioxide 23 Anion Gap 18.0 H BUN 18 Creatinine 0.8 Estimated GFR (MDRD) 99 Glucose 87 Lactic Acid Calcium 9.2 Magnesium Total Bilirubin 0.7 AST 27 ALT 21 Alkaline Phosphatase 77 Troponin I High Sens B-Natriuretic Peptide Total Protein 7.1 Albumin 4.2 Globulin 2.9 Albumin/Globulin Ratio 1.4 Lipase 40 TSH 3.11 Urine Color Urine Clarity Urine pH Ur Specific [place] Urine Protein Urine Glucose (UA) Urine Ketones Urine Occult Blood Urine Nitrite Urine Bilirubin Urine Urobilinogen Ur Leukocyte Esterase Urine RBC Urine WBC Ur Squamous Epith Cells Urine Bacteria Urine Casts Urine Mucus Ur Microscopic Review Urine Culture Comments Salicylates < 6.0 Urine Opiates Screen Ur Oxycodone Screen Urine Methadone Screen Ur Propoxyphene Screen Acetaminophen < 10 L Ur Barbiturates Screen Ur Tricyclics Screen Ur Phencyclidine Scrn Ur Amphetamine Screen U Methamphetamines Scrn U Benzodiazepines Scrn Urine Cocaine Screen U Cannabinoids Screen Ethyl Alcohol 191.0 Serum Ketones 12/11/19 12/11/19 12/11/19 21:08 22:37 22:37 WBC RBC Hgb Hct MCV MCH MCHC RDW Plt Count MPV Neut # (Auto) Lymph # (Auto) Winn # (Auto) Eos # (Auto) Baso # (Auto) Absolute Nucleated RBC Nucleated RBC % PT 10.8 INR 1.0 APTT 25.2 VBG pH VBG pCO2 VBG pO2 VBG HCO3 VBG Total CO2 VBG O2 Saturation VBG Base Excess Sodium Potassium Chloride Carbon Dioxide Anion Gap BUN Creatinine Estimated GFR (MDRD) Glucose Lactic Acid Calcium Magnesium 1.9 Total Bilirubin AST ALT Alkaline Phosphatase Troponin I High Sens B-Natriuretic Peptide Total Protein Albumin Globulin Albumin/Globulin Ratio Lipase TSH Urine Color YELLOW Urine Clarity CLEAR Urine pH 6.0 Ur Specific [place] 1.025 Urine Protein 30 H Urine Glucose (UA) NEGATIVE Urine Ketones TRACE Urine Occult Blood TRACE-INTA Urine Nitrite NEGATIVE Urine Bilirubin NEGATIVE Urine Urobilinogen 0.2 (NORMAL) Ur Leukocyte Esterase NEGATIVE Urine RBC 0-5 Urine WBC 0-3 Ur Squamous Epith Cells RARE Squamous Urine Bacteria Rare Urine Casts 3-5 Hyaline Casts Urine Mucus Few Strands Ur Microscopic Review INDICATED Urine Culture Comments NOT INDICATED Salicylates Urine Opiates Screen NEGATIVE Ur Oxycodone Screen NEGATIVE Urine Methadone Screen NEGATIVE Ur Propoxyphene Screen NEGATIVE Acetaminophen Ur Barbiturates Screen NEGATIVE Ur Tricyclics Screen NEGATIVE Ur Phencyclidine Scrn NEGATIVE Ur Amphetamine Screen NEGATIVE U Methamphetamines Scrn NEGATIVE U Benzodiazepines Scrn NEGATIVE Urine Cocaine Screen NEGATIVE U Cannabinoids Screen NEGATIVE Ethyl Alcohol Serum Ketones 12/11/19 12/11/19 12/11/19 22:37 22:37 22:37 WBC RBC Hgb Hct MCV MCH MCHC RDW Plt Count MPV Neut # (Auto) Lymph # (Auto) Winn # (Auto) Eos # (Auto) Baso # (Auto) Absolute Nucleated RBC Nucleated RBC % PT INR APTT VBG pH VBG pCO2 VBG pO2 VBG HCO3 VBG Total CO2 VBG O2 Saturation VBG Base Excess Sodium Potassium Chloride Carbon Dioxide Anion Gap BUN Creatinine Estimated GFR (MDRD) Glucose Lactic Acid 4.2 H* Calcium Magnesium Total Bilirubin AST ALT Alkaline Phosphatase Troponin I High Sens 6.2 B-Natriuretic Peptide 86 Total Protein Albumin Globulin Albumin/Globulin Ratio Lipase TSH Urine Color Urine Clarity Urine pH Ur Specific [place] Urine Protein Urine Glucose (UA) Urine Ketones Urine Occult Blood Urine Nitrite Urine Bilirubin Urine Urobilinogen Ur Leukocyte Esterase Urine RBC Urine WBC Ur Squamous Epith Cells Urine Bacteria Urine Casts Urine Mucus Ur Microscopic Review Urine Culture Comments Salicylates Urine Opiates Screen Ur Oxycodone Screen Urine Methadone Screen Ur Propoxyphene Screen Acetaminophen Ur Barbiturates Screen Ur Tricyclics Screen Ur Phencyclidine Scrn Ur Amphetamine Screen U Methamphetamines Scrn U Benzodiazepines Scrn Urine Cocaine Screen U Cannabinoids Screen Ethyl Alcohol Serum Ketones 12/11/19 12/11/19 12/12/19 23:15 23:15 03:10 WBC RBC Hgb Hct MCV MCH MCHC RDW Plt Count MPV Neut # (Auto) Lymph # (Auto) Winn # (Auto) Eos # (Auto) Baso # (Auto) Absolute Nucleated RBC Nucleated RBC % PT INR APTT VBG pH 7.360 VBG pCO2 38.4 L VBG pO2 155.2 H VBG HCO3 21.2 L VBG Total CO2 22.4 L VBG O2 Saturation 98.5 H VBG Base Excess -3.8 L Sodium Potassium Chloride Carbon Dioxide Anion Gap BUN Creatinine Estimated GFR (MDRD) Glucose Lactic Acid 2.0 Calcium Magnesium Total Bilirubin AST ALT Alkaline Phosphatase Troponin I High Sens B-Natriuretic Peptide Total Protein Albumin Globulin Albumin/Globulin Ratio Lipase TSH Urine Color Urine Clarity Urine pH Ur Specific [place] Urine Protein Urine Glucose (UA) Urine Ketones Urine Occult Blood Urine Nitrite Urine Bilirubin Urine Urobilinogen Ur Leukocyte Esterase Urine RBC Urine WBC Ur Squamous Epith Cells Urine Bacteria Urine Casts Urine Mucus Ur Microscopic Review Urine Culture Comments Salicylates Urine Opiates Screen Ur Oxycodone Screen Urine Methadone Screen Ur Propoxyphene Screen Acetaminophen Ur Barbiturates Screen Ur Tricyclics Screen Ur Phencyclidine Scrn Ur Amphetamine Screen U Methamphetamines Scrn U Benzodiazepines Scrn Urine Cocaine Screen U Cannabinoids Screen Ethyl Alcohol Serum Ketones NEGATIVE 12/12/19 03:10 WBC RBC Hgb Hct MCV MCH MCHC RDW Plt Count MPV Neut # (Auto) Lymph # (Auto) Winn # (Auto) Eos # (Auto) Baso # (Auto) Absolute Nucleated RBC Nucleated RBC % PT INR APTT VBG pH VBG pCO2 VBG pO2 VBG HCO3 VBG Total CO2 VBG O2 Saturation VBG Base Excess Sodium Potassium Chloride Carbon Dioxide Anion Gap BUN Creatinine Estimated GFR (MDRD) Glucose Lactic Acid Calcium Magnesium Total Bilirubin AST ALT Alkaline Phosphatase Troponin I High Sens B-Natriuretic Peptide Total Protein Albumin Globulin Albumin/Globulin Ratio Lipase TSH Urine Color Urine Clarity Urine pH Ur Specific [place] Urine Protein Urine Glucose (UA) Urine Ketones Urine Occult Blood Urine Nitrite Urine Bilirubin Urine Urobilinogen Ur Leukocyte Esterase Urine RBC Urine WBC Ur Squamous Epith Cells Urine Bacteria Urine Casts Urine Mucus Ur Microscopic Review Urine Culture Comments Salicylates Urine Opiates Screen Ur Oxycodone Screen Urine Methadone Screen Ur Propoxyphene Screen Acetaminophen Ur Barbiturates Screen Ur Tricyclics Screen Ur Phencyclidine Scrn Ur Amphetamine Screen U Methamphetamines Scrn U Benzodiazepines Scrn Urine Cocaine Screen U Cannabinoids Screen Ethyl Alcohol 5.1 Serum Ketones PD MEDICAL DECISION MAKING - ED course Complexity details: re-evaluated patient ED course: patient signed out to me at shift change. Patient in a fib RVR, will be given a dose of his scheduled metoprolol. Also patient is complaining of anxiety and possible etohy wd. will treat with bzd, banana bag. also c/o of abd burning, suspect etoh gastritis will treat with pepcid. awaiting evaluation by [facility]. 02:00 patient continues to be in a fib rvr wih HR in 130's was given second dose of dilatizem at 35 mg/kg which has successfully rate controlled atrial fibrillation. patient is chest pain free. he continues to make suicidal comments and states he does not want to live anymore. order placed for [facility] evaluation as well as social work. 05:59 am. patient now in NSR, no chest pain, lactate 2. sober. awaiting [facility] evaluation. 06:51 am, patient in NSR. remains suicidal. awaiting [facility] evaluation. patient signed out at shift change to dr jesus manuel.
[2019-12-11 20:12] LABS: BASOPHILS # (AUTO) 0.1 10^3/uL (0.0-0.1); BASOPHILS % (AUTO) 1.3 %; EOSINOPHILS # (AUTO) 0.1 10^3/uL (0.0-0.7); EOSINOPHILS % (AUTO) 1.7 %; HGB - HEMOGLOBIN 14.5 g/dL (14.0-18.0); LYMPHOCYTES # (AUTO) 2.2 10^3/uL (1.5-3.5); LYMPHOCYTES % (AUTO) 36.6 %; MEAN CORPUSCULAR HEMOGLOBIN 33.2 pg (27.0-31.0); MEAN CORPUSCULAR HGB CONC 34.6 g/dL (32.0-36.0); MEAN CORPUSCULAR VOLUME 95.9 fL (80.0-94.0); MEAN PLATELET VOLUME 8.9 fL (7.4-11.4); MONOCYTES # (AUTO) 0.8 10^3/uL (0.0-1.0); MONOCYTES % (AUTO) 12.8 %; NEUTROPHILS # (AUTO) 2.8 10^3/uL (1.5-6.6); NEUTROPHILS % (AUTO) 47.3 %; PLT - PLATELET COUNT 290 10^3/uL (130-450); RED BLOOD COUNT 4.37 10^6/uL (4.70-6.10); RED CELL DISTRIBUTION WIDTH 12.7 % (12.0-15.0)
[2019-12-11 20:25] LABS: ACETAMINOPHEN < 10 ug/mL (10-30); ALBUMIN 4.2 g/dL (3.2-5.5); ALBUMIN/GLOBULIN RATIO 1.4 (1.0-2.2); ALKALINE PHOSPHATASE 77 IU/L (42-121); ALT ALANINE AMINOTRANSFERASE 21 IU/L (10-60); AST ASPARTATE AMINOTRANSFERASE 27 IU/L (10-42); BILIRUBIN,TOTAL 0.7 mg/dL (0.2-1.0); BUN - BLOOD UREA NITROGEN 18 mg/dL (6-20); CALCIUM 9.2 mg/dL (8.5-10.3); CARBON DIOXIDE - CO2 23 mmol/L (21-32); CHLORIDE 102 mmol/L (101-111); CREATININE 0.8 mg/dL (0.6-1.2); GLUCOSE 87 mg/dL (70-100); LIPASE 40 U/L (22-51); SALICYLATE < 6.0 mg/dL; SODIUM 143 mmol/L (135-145); TOTAL PROTEIN 7.1 g/dL (6.7-8.2)
[2019-12-11] MEDS ORDERED: diltiaZEM INJ 5 MG/ML VIAL IVP STA (20:41)
[2019-12-11] MEDS ORDERED: ONDANSETRON ODT 4 MG TABLET TL STA (21:09)
[2019-12-11 21:10] LABS: MUDS CUTOFF CONCENTRATIONS CUTOFF CONC BELOW:
[2019-12-11 21:11] LABS: BILIRUBIN,URINE NEGATIVE (NEGATIVE); GLUCOSE, URINE (UA) NEGATIVE (NEGATIVE); KETONES,URINE (UA) TRACE mg/dL (NEGATIVE); LEUKOCYTE ESTERASE, URINE NEGATIVE (NEGATIVE); NITRITE,URINE NEGATIVE (NEGATIVE); OCCULT BLOOD,URINE TRACE-INTA (NEGATIVE); PROTEIN,URINE 30 mg/dL (NEGATIVE); UROBILINOGEN,URINE 0.2 (NORMAL) E.U./dL (NORMAL)
[2019-12-11 21:12] LABS: CLARITY,URINE CLEAR (CLEAR)
[2019-12-11 21:18] LABS: BACTERIA,URINE Rare /HPF (None Seen); CASTS, URINE 3-5 Hyaline Casts /LPF; MUCUS,URINE Few Strands; RBC,URINE 0-5 /HPF (0-5); SQUAMOUS EPITHELIAL CELL,UR RARE Squamous (<= Few)
[2019-12-11 21:22] LABS: AMPHETAMINE SCREEN,URINE NEGATIVE (NEGATIVE); BENZODIAZEPINES SCREEN, URINE NEGATIVE (NEGATIVE); COCAINE SCREEN URINE NEGATIVE (NEGATIVE); METHADONE SCREEN, URINE NEGATIVE (NEGATIVE); METHAMPHETAMINES SCREEN, URINE NEGATIVE (NEGATIVE); OPIATE SCREEN, URINE NEGATIVE (NEGATIVE); OXYCODONE SCREEN, URINE NEGATIVE (NEGATIVE); PROPOXYPHENE SCREEN, URINE NEGATIVE (NEGATIVE); TRICYCLIC ANTIDEPRESSANT,URINE NEGATIVE (NEGATIVE)
[2019-12-11] MEDS ORDERED: METOPROLOL SUCCINATE 50 MG TABLET PO STA (21:33)
[2019-12-11] MEDS ORDERED: LORazepam 2 MG/ML VIAL IVP STA (22:19)
[2019-12-11] MEDS ORDERED: FOLIC ACID INJ 1 MG, THIAMINE INJ 100 MG, MAGNESIUM SULFATE 2 GM, MULTIVITAMIN 10 ML in... IV STA ×5 (22:19)
[2019-12-11] MEDS ORDERED: FAMOTIDINE 20 MG/2 ML SYRINGE IVP STA (22:19)
[2019-12-11] MEDS ORDERED: MAGNESIUM SULFATE 1 GM/2 ML VIAL ONE (22:29)
[2019-12-11] MEDS ORDERED: THIAMINE 100 MG/1 ML 2 ML MDV ONE (22:29)
[2019-12-11] MEDS ORDERED: FOLIC ACID 5 MG/1 ML 10ML MDV ONE (22:29)
[2019-12-11 22:47] LABS: PT - PROTHROMBIN TIME 10.8 secs (9.9-12.6)
[2019-12-11 22:54] LABS: PARTIAL THROMBOPLASTIN TIME 25.2 secs (24.9-33.3)
[2019-12-11] MEDS ORDERED: diltiaZEM INJ 5 MG/ML VIAL ONE (22:56)
[2019-12-11 23:26] LABS: VBG BASE EXCESS -3.8 mmol/L (-2 - +2); VBG PCO2 38.4 mmHg (41-51); VBG PH 7.36 (7.31-7.41); VBG PO2 155.2 mmHg (25-47); VBG TOTAL CO2 22.4 mmol/L (24-29)
[2019-12-12] MEDS ORDERED: diltiaZEM INJ 5 MG/ML VIAL IVP STA ×2 (00:22→08:57)
--- NOTE | 2019-12-12 07:12 | XRAY Report ---
PROCEDURE: Chest 1 View X-Ray INDICATIONS: sob TECHNIQUE: One view of the chest was acquired. COMPARISON: 07/08/2019 FINDINGS: Surgical changes and devices: None. Lungs and pleura: No pleural effusions or pneumothorax. Lungs are clear. Mediastinum: Mediastinal contours appear normal. Heart size is normal. Bones and chest wall: Chronic bilateral rib fractures are stable. No suspicious bony lesions. Overl tomas soft tissues appear unremarkable. IMPRESSION: No acute cardiopulmonary disease process. Reviewed by: Albina Duarte MD, PhD on 12/12/2019 7:10 AM PDT Approved by: Albina Duarte MD, PhD on 12/12/2019 7:10 AM PDT Station ID: [id number]
[2019-12-12] MEDS ORDERED: HYDROmorphone 1 MG/ML CARPUJECT IVP STA (08:49)
[2019-12-12] MEDS ORDERED: LORazepam 2 MG/ML VIAL IVP STA (08:50)
[2019-12-12] MEDS ORDERED: diltiaZEM INJ 5 MG/ML VIAL ONE (09:03)
[2019-12-12] MEDS ORDERED: NICOTINE 14 MG PATCH TOP STA (12:00)
--- NOTE | 2019-12-12 12:06 | ED Physician Documentation ---
History of Present Illness - Stated complaint Stated Complaint: ETOH/ SI - Chief complaint Chief Complaint: MHE - History obtained from History obtained from: Patient - History of Present Illness Timing: Yesterday - Additonal information Additional information: 59-year-old alcoholic male consumed considerable amount of alcohol yesterday made some statements about suicidality and was transported to the hospital for evaluation. He was found to have atrial fibrillation with rapid ventricular response and alcohol intoxication. Overnight he has been here in the emergency department cared for by Dr. Rucker and he has received a banana bag and multiple doses of diltiazem as well as metoprolol. When I arrived to the emergency department this morning the patient has another episode of A. fib with RVR with a rate of 140 and he is given additional diltiazem. This does help and he is given Ativan intravenously as well. PD PAST MEDICAL HISTORY - Past Medical History Cardiovascular: Atrial fibrillation Respiratory: COPD, Pneumonia, Shortness of breath Neuro: None Endocrine/Autoimmune: None GI: None : None Psych: None Musculoskeletal: Chronic back pain, Other Derm: Other - Past Surgical History Past Surgical History: Yes General: Other - Present Medications Home Medications: Ambulatory Orders Medication Instructions Recorded Confirmed Albuterol Sulfate [Albuterol 2 puffs INH Q6H PRN 07/08/19 07/08/19 Sulfate Hfa] Nicotine 14 mg Patch [Nicoderm] 1 each TOP Q24H #14 patch 07/09/19 dilTIAZem HCl [Diltiazem 24Hr ER 240 mg PO DAILY #30 cap.er.24h 07/09/19 (Cd)] - Allergies Allergies/Adverse Reactions: Allergies Allergy/AdvReac Type Severity Reaction Status Date / Time dogs,cats,dust Allergy Unknown Uncoded 12/11/19 19:58 - Social History Does the pt smoke?: Yes Smoking Status: Current every day smoker Does the pt drink ETOH?: Yes Does the pt have substance abuse?: No - Immunizations Immunizations are current?: Yes - POLST Patient has POLST: No PD ED PE NORMAL - Vitals Vital signs reviewed: Yes (tachy and hypertensive) - General General: Alert and oriented X 3, Well developed/nourished, Other (appears withdrawn and has flattened affect) - HEENT HEENT: Atraumatic, PERRL, EOMI - Neck Neck: Supple, no meningeal sign - Cardiac Cardiac: No murmur, Other (irregularly irregular with rapid rate and no murmer) - Respiratory Respiratory: No respiratory distress, Clear bilaterally - Abdomen Abdomen: Soft, Non tender, Non distended - Back Back: No CVA TTP, No spinal TTP - Derm Derm: Normal color, Warm and dry, No rash - Extremities Extremities: No deformity, No edema - 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 ) Results - Vitals Vitals: Vital Signs - 24 hr 12/11/19 12/11/19 12/11/19 20:08 20:09 20:11 Temperature 37.1 C 37.1 C 37.1 C Heart Rate 120 H 87 98 Respiratory 16 16 16 Rate Blood Pressure 127/87 H 127/87 H 127/87 H O2 Saturation 100 100 100 12/11/19 12/11/19 12/11/19 20:30 21:00 21:30 Temperature Heart Rate 130 H 149 H 128 H Respiratory 13 12 Rate Blood Pressure 119/97 H 131/99 H 118/90 H O2 Saturation 98 99 12/11/19 12/11/19 12/11/19 21:45 21:58 22:00 Temperature Heart Rate 128 H 84 81 Respiratory 31 H 17 20 Rate Blood Pressure 133/97 H 135/109 H 138/91 H O2 Saturation 98 97 97 12/11/19 12/11/19 12/12/19 22:07 23:11 00:05 Temperature 37.0 C 37 C 37 C Heart Rate 120 H 118 H 125 H Respiratory 18 18 18 Rate Blood Pressure 136/87 H 112/78 103/82 H O2 Saturation 97 98 98 12/12/19 12/12/19 12/12/19 00:35 00:45 00:50 Temperature Heart Rate 122 H 123 H 102 H Respiratory 23 Rate Blood Pressure 118/82 H 103/55 L 88/42 L O2 Saturation 94 12/12/19 12/12/19 12/12/19 00:58 01:00 01:19 Temperature Heart Rate 74 76 70 Respiratory 20 16 21 Rate Blood Pressure 93/53 L 98/68 99/70 O2 Saturation 95 95 92 12/12/19 12/12/19 12/12/19 01:30 03:00 05:45 Temperature Heart Rate 83 90 80 Respiratory 22 16 16 Rate Blood Pressure 114/70 122/82 H 126/84 H O2 Saturation 92 99 95 12/12/19 12/12/19 12/12/19 07:00 09:00 10:30 Temperature Heart Rate 73 85 110 H Respiratory 16 14 19 Rate Blood Pressure 123/83 H 110/70 116/93 H O2 Saturation 93 95 95 Oxygen O2 Source Room air - Labs Labs: Laboratory Tests 12/11/19 12/11/19 12/11/19 20:05 20:05 20:05 WBC 6.0 RBC 4.37 L Hgb 14.5 Hct 41.9 L MCV 95.9 H MCH 33.2 H MCHC 34.6 RDW 12.7 Plt Count 290 MPV 8.9 Neut # (Auto) 2.8 Lymph # (Auto) 2.2 [place] # (Auto) 0.8 Eos # (Auto) 0.1 Baso # (Auto) 0.1 Absolute Nucleated RBC 0.00 Nucleated RBC % 0.0 PT INR APTT VBG pH VBG pCO2 VBG pO2 VBG HCO3 VBG Total CO2 VBG O2 Saturation VBG Base Excess Sodium 143 Potassium 3.7 Chloride 102 Carbon Dioxide 23 Anion Gap 18.0 H BUN 18 Creatinine 0.8 Estimated GFR (MDRD) 99 Glucose 87 Lactic Acid Calcium 9.2 Magnesium Total Bilirubin 0.7 AST 27 ALT 21 Alkaline Phosphatase 77 Troponin I High Sens B-Natriuretic Peptide Total Protein 7.1 Albumin 4.2 Globulin 2.9 Albumin/Globulin Ratio 1.4 Lipase 40 TSH 3.11 Urine Color Urine Clarity Urine pH Ur Specific [place] Urine Protein Urine Glucose (UA) Urine Ketones Urine Occult Blood Urine Nitrite Urine Bilirubin Urine Urobilinogen Ur Leukocyte Esterase Urine RBC Urine WBC Ur Squamous Epith Cells Urine Bacteria Urine Casts Urine Mucus Ur Microscopic Review Urine Culture Comments Salicylates < 6.0 Urine Opiates Screen Ur Oxycodone Screen Urine Methadone Screen Ur Propoxyphene Screen Acetaminophen < 10 L Ur Barbiturates Screen Ur Tricyclics Screen Ur Phencyclidine Scrn Ur Amphetamine Screen U Methamphetamines Scrn U Benzodiazepines Scrn Urine Cocaine Screen U Cannabinoids Screen Ethyl Alcohol 191.0 Serum Ketones 12/11/19 12/11/19 12/11/19 21:08 22:37 22:37 WBC RBC Hgb Hct MCV MCH MCHC RDW Plt Count MPV Neut # (Auto) Lymph # (Auto) [place] # (Auto) Eos # (Auto) Baso # (Auto) Absolute Nucleated RBC Nucleated RBC % PT 10.8 INR 1.0 APTT 25.2 VBG pH VBG pCO2 VBG pO2 VBG HCO3 VBG Total CO2 VBG O2 Saturation VBG Base Excess Sodium Potassium Chloride Carbon Dioxide Anion Gap BUN Creatinine Estimated GFR (MDRD) Glucose Lactic Acid Calcium Magnesium 1.9 Total Bilirubin AST ALT Alkaline Phosphatase Troponin I High Sens B-Natriuretic Peptide Total Protein Albumin Globulin Albumin/Globulin Ratio Lipase TSH Urine Color YELLOW Urine Clarity CLEAR Urine pH 6.0 Ur Specific [place] 1.025 Urine Protein 30 H Urine Glucose (UA) NEGATIVE Urine Ketones TRACE Urine Occult Blood TRACE-INTA Urine Nitrite NEGATIVE Urine Bilirubin NEGATIVE Urine Urobilinogen 0.2 (NORMAL) Ur Leukocyte Esterase NEGATIVE Urine RBC 0-5 Urine WBC 0-3 Ur Squamous Epith Cells RARE Squamous Urine Bacteria Rare Urine Casts 3-5 Hyaline Casts Urine Mucus Few Strands Ur Microscopic Review INDICATED Urine Culture Comments NOT INDICATED Salicylates Urine Opiates Screen NEGATIVE Ur Oxycodone Screen NEGATIVE Urine Methadone Screen NEGATIVE Ur Propoxyphene Screen NEGATIVE Acetaminophen Ur Barbiturates Screen NEGATIVE Ur Tricyclics Screen NEGATIVE Ur Phencyclidine Scrn NEGATIVE Ur Amphetamine Screen NEGATIVE U Methamphetamines Scrn NEGATIVE U Benzodiazepines Scrn NEGATIVE Urine Cocaine Screen NEGATIVE U Cannabinoids Screen NEGATIVE Ethyl Alcohol Serum Ketones 12/11/19 12/11/19 12/11/19 22:37 22:37 22:37 WBC RBC Hgb Hct MCV MCH MCHC RDW Plt Count MPV Neut # (Auto) Lymph # (Auto) [place] # (Auto) Eos # (Auto) Baso # (Auto) Absolute Nucleated RBC Nucleated RBC % PT INR APTT VBG pH VBG pCO2 VBG pO2 VBG HCO3 VBG Total CO2 VBG O2 Saturation VBG Base Excess Sodium Potassium Chloride Carbon Dioxide Anion Gap BUN Creatinine Estimated GFR (MDRD) Glucose Lactic Acid 4.2 H* Calcium Magnesium Total Bilirubin AST ALT Alkaline Phosphatase Troponin I High Sens 6.2 B-Natriuretic Peptide 86 Total Protein Albumin Globulin Albumin/Globulin Ratio Lipase TSH Urine Color Urine Clarity Urine pH Ur Specific [place] Urine Protein Urine Glucose (UA) Urine Ketones Urine Occult Blood Urine Nitrite Urine Bilirubin Urine Urobilinogen Ur Leukocyte Esterase Urine RBC Urine WBC Ur Squamous Epith Cells Urine Bacteria Urine Casts Urine Mucus Ur Microscopic Review Urine Culture Comments Salicylates Urine Opiates Screen Ur Oxycodone Screen Urine Methadone Screen Ur Propoxyphene Screen Acetaminophen Ur Barbiturates Screen Ur Tricyclics Screen Ur Phencyclidine Scrn Ur Amphetamine Screen U Methamphetamines Scrn U Benzodiazepines Scrn Urine Cocaine Screen U Cannabinoids Screen Ethyl Alcohol Serum Ketones 12/11/19 12/11/19 12/12/19 23:15 23:15 03:10 WBC RBC Hgb Hct MCV MCH MCHC RDW Plt Count MPV Neut # (Auto) Lymph # (Auto) [place] # (Auto) Eos # (Auto) Baso # (Auto) Absolute Nucleated RBC Nucleated RBC % PT INR APTT VBG pH 7.360 VBG pCO2 38.4 L VBG pO2 155.2 H VBG HCO3 21.2 L VBG Total CO2 22.4 L VBG O2 Saturation 98.5 H VBG Base Excess -3.8 L Sodium Potassium Chloride Carbon Dioxide Anion Gap BUN Creatinine Estimated GFR (MDRD) Glucose Lactic Acid 2.0 Calcium Magnesium Total Bilirubin AST ALT Alkaline Phosphatase Troponin I High Sens B-Natriuretic Peptide Total Protein Albumin Globulin Albumin/Globulin Ratio Lipase TSH Urine Color Urine Clarity Urine pH Ur Specific [place] Urine Protein Urine Glucose (UA) Urine Ketones Urine Occult Blood Urine Nitrite Urine Bilirubin Urine Urobilinogen Ur Leukocyte Esterase Urine RBC Urine WBC Ur Squamous Epith Cells Urine Bacteria Urine Casts Urine Mucus Ur Microscopic Review Urine Culture Comments Salicylates Urine Opiates Screen Ur Oxycodone Screen Urine Methadone Screen Ur Propoxyphene Screen Acetaminophen Ur Barbiturates Screen Ur Tricyclics Screen Ur Phencyclidine Scrn Ur Amphetamine Screen U Methamphetamines Scrn U Benzodiazepines Scrn Urine Cocaine Screen U Cannabinoids Screen Ethyl Alcohol Serum Ketones NEGATIVE 12/12/19 03:10 WBC RBC Hgb Hct MCV MCH MCHC RDW Plt Count MPV Neut # (Auto) Lymph # (Auto) [place] # (Auto) Eos # (Auto) Baso # (Auto) Absolute Nucleated RBC Nucleated RBC % PT INR APTT VBG pH VBG pCO2 VBG pO2 VBG HCO3 VBG Total CO2 VBG O2 Saturation VBG Base Excess Sodium Potassium Chloride Carbon Dioxide Anion Gap BUN Creatinine Estimated GFR (MDRD) Glucose Lactic Acid Calcium Magnesium Total Bilirubin AST ALT Alkaline Phosphatase Troponin I High Sens B-Natriuretic Peptide Total Protein Albumin Globulin Albumin/Globulin Ratio Lipase TSH Urine Color Urine Clarity Urine pH Ur Specific [place] Urine Protein Urine Glucose (UA) Urine Ketones Urine Occult Blood Urine Nitrite Urine Bilirubin Urine Urobilinogen Ur Leukocyte Esterase Urine RBC Urine WBC Ur Squamous Epith Cells Urine Bacteria Urine Casts Urine Mucus Ur Microscopic Review Urine Culture Comments Salicylates Urine Opiates Screen Ur Oxycodone Screen Urine Methadone Screen Ur Propoxyphene Screen Acetaminophen Ur Barbiturates Screen Ur Tricyclics Screen Ur Phencyclidine Scrn Ur Amphetamine Screen U Methamphetamines Scrn U Benzodiazepines Scrn Urine Cocaine Screen U Cannabinoids Screen Ethyl Alcohol 5.1 Serum Ketones PD MEDICAL DECISION MAKING - ED course Complexity details: reviewed results, re-evaluated patient, considered differential, d/w patient ED course: 59-year-old male with acute alcohol intoxication and a history of atrial fibril lation has had episode of rapid ventricular response and this is been difficult to control he is continuing to metabolize alcohol and has been seen by the DCR and cleared for return to home. He does not look like he is ready to go home on the medical standpoint and I have asked our hospitalist to consider admission for treatment of resistant A. fib with RVR. Departure - Departure Disposition: ED Place in Observation Clinical Impression: Suicidal ideation, Atrial fibrillation with RVR Alcohol intoxication Qualifiers: Complication of substance-induced condition: uncomplicated Qualified Code(s): F10.920 - Alcohol use, unspecified with intoxication, uncomplicated Condition: Fair
[2019-12-12] MEDS ORDERED: SODIUM CHLORIDE FLUSH 0.9% 10 ML SYRINGE IVP PRN (12:28)
[2019-12-12] MEDS ORDERED: THIAMINE INJ 100 MG in SODIUM CHLORIDE 0.9% 50 ML IV STA (12:32)
[2019-12-12] MEDS ORDERED: METOPROLOL 5 MG/5 ML VIAL IVP PRN (12:38)
--- NOTE | 2019-12-12 12:42 | HISTORY & PHYSICAL EXAMINATION ---
Chief Complaint - Chief Complaint Chief Complaint: palpitation History of Present Illness - Admitted From Admitted From:: ER - History Obtained From Records Reviewed: [facility] History obtained from: pt - History of Present Illness HPI Comment/Other: This is a 58-year-old male with a past medical history significant for atrial fibrillation, COPD, tobacco abuse, recently diagnosis of right renal mass, who present ER on yesterday for suicide idea. DCR cleared for return to home and pt report he was just messed with alcohol, no suicide idea. Patient also reported he had recently diagnosis of right renal mass and he reported his PCP referral to surgery consult to him. In [facility], December 02, 2019 patient had CAT scan which did show pt had right renal mass. He reported he did not take his home medication for a few days. Patient denies chest pain, fever, chill, shortness of breathing. Patient was given 3 time intravenous Cardizem and a one-time oral metoprolol in ER, but her pulse is still around 110-120. Chest x-ray was unremarkable, laboratory test is also unremarkable. Patient is admitted for further medical management. Discussed the care goal with patient, patient request DNR. History - Past Medical History Cardiovascular: reports: Atrial fibrillation Respiratory: reports: COPD, Pneumonia, Shortness of breath Neuro: reports: None Endocrine/Autoimmune: reports: None GI: reports: None : reports: None Psych: reports: None Musculoskeletal: reports: Chronic back pain, Other Derm: reports: Other MRSA Hx?: No - Past Surgical History General: reports: Other - Family & Social History Family History Comment/Other: Reports father from infection after back surgery. He did have colon cancer. His mother from alcoholism. His grandmother passed from myocardial infarction but she also suffers from alcoholism. 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 He does not drink alcohol after quitting a year and a half ago after going through rehab. He previously drank on a daily basis for over 20 years. He has a smoking a pack a day since the age of 13. He has not smoked since he was discharged from [facility] last week. He has been compliant with a nicotine patch. - POLST Patient has POLST: No Meds/Allgy - Home Medications Home Medications: Ambulatory Orders Medication Instructions Recorded Confirmed Albuterol Sulfate [Albuterol 2 puffs INH Q6H PRN 07/08/19 07/08/19 Sulfate Hfa] Nicotine 14 mg Patch [Nicoderm] 1 each TOP Q24H #14 patch 07/09/19 dilTIAZem HCl [Diltiazem 24Hr ER 240 mg PO DAILY #30 cap.er.24h 07/09/19 (Cd)] Famotidine [Acid Controller] 20 mg PO DAILY 12/12/19 Fluoxetine HCl [Prozac] 20 mg PO DAILY 12/12/19 Metoprolol Succinate [Toprol Xl] 50 mg PO DAILY 12/12/19 QUEtiapine [SEROquel] 25 mg PO DAILY 12/12/19 busPIRone [Buspar] 5 mg PO BID 12/12/19 - Allergies Allergies/Adverse Reactions: Allergies Allergy/AdvReac Type Severity Reaction Status Date / Time dogs,cats,dust Allergy Unknown Uncoded 12/11/19 19:58 Review of Systems - Constitutional Constitutional: denies: Fatigue, Fever, Chills, Malaise, Weakness, Poor appetite, Diaphoresis, Night sweats - Eyes Eyes: denies: Pain, Blurred vision, Spots in vision, Field loss, Vision loss, Dipolpia - Ears, Nose & Throat Ears, Nose & Throat: denies: Ear pain, Hearing aids, Nasal pain, Nasal discharge, Nasal obstruction, Nasal congestion, Dentures, Hoarseness, Mouth lesions - Cardiovascular Cariovascular: denies: Irregular heart rate, Palpitations, Chest pain, Edema, Lightheadedness, Syncope, Exertional dyspnea, Decr. exercise tolerance - Respiratory Respiratory: denies: Cough, Sputum production, Wheezing, Snoring, Hemoptysis, Orthopnea, SOB at rest, SOB with exertion - Gastrointestinal Gastrointestinal: denies: Abdominal pain, Constipation, Diarrhea, Change in bowel habits, Rectal bleeding, Black stools, Bloody stools, Nausea, Vomiting, Bile emesis, Coffee grounds emesis, Reflux/heartburn - Genitourinary Genitourinary: denies: Dysuria, Frequency, Urgency, Hematuria, Incontinence, Flank pain, Nocturia, Urethral discharge - Musculoskeletal Musculoskeletal: denies: Muscle pain, Muscle aches, Limited range of motion, Muscle weakness - Integumentary Integumentary: denies: Rash, Lesions, Dryness, Lumps, Acne, Nail changes - Neurological Neurological: denies: General weakness, Focal weakness, Headache, Dizziness, Numbness, Memory problems, Pre-existing deficit, Abnormal gait, Seizures, Incoordination, Slurred speech - Psychiatric Psychiatric: denies: Depression, Anxiety, Suicidal, Delusions, Hallucinations, Homicidal - Endocrine Endocrine: denies: Polyuria, Polydypsia, Polyphagia - Hematologic/Lymphatic Hematologic/Lymphatic: denies: Anemia, Petechiae, Blood clots, Lymphadenopathy, Bleeding tendencies Exam - Vital Signs Vital Signs: Vital Signs x48h Pulse Resp BP Pulse Ox 12/12/19 10:30 110 H 19 116/93 H 95 12/12/19 09:00 85 14 110/70 95 12/12/19 07:00 73 16 123/83 H 93 12/12/19 05:45 80 16 126/84 H 95 - Physical Exam General Appearance: positive: No acute distress, Alert, Lethargic Eyes Bilateral: positive: Normal inspection, PERRL, No lid inflammation ENT: positive: ENT inspection nml, No signs of dehydration. negative: Purulent nasal drainage, Dry mucous membranes Neck: positive: Nml inspection, Thyroid nml, Trachea midline. negative: Thyromegaly, Stiff neck, Tracheal deviation Respiratory: positive: Chest non-tender, No respiratory distress. negative: Wheezes, Rales, Rhonchi Cardiovascular: positive: No murmur, Irregularly irregular, Tachycardia. negative: Bradycardia, Systolic murmur, Diastolic murmur Peripheral Pulses: positive: 2+ Abdomen: positive: Non-tender, Nml bowel sounds, No distention. negative: Tenderness, Guarding, Rebound Back: positive: Nml inspection. negative: CVA tenderness (R), CVA tenderness (L) Skin: positive: Color nml, No rash, Warm, Dry. negative: Cyanosis, Diaphoresis, Pallor Extremities: positive: Non-tender, Full ROM, Nml appearance. negative: Calf tenderness, Geri's sign/cords Neurologic/Psychiatric: positive: Oriented x3, Motor nml, Sensation nml, Mood/affect nml. negative: Weakness, Sensory loss, Facial droop, Slurred/abnml speech, Depressed mood/affect Sepsis Event Note (H) - Evaluation Current Stage of Sepsis: Ruled out Conclusion/Plan - Problem List (1) Atrial fibrillation with RVR Conclusion/Plan: Patient did not take his home medication Cardizem. Patient denies chest pain, palpitation. Troponin was negative, patient had no echo since pt had diagnosis of afib with RVR we will order echo. Patient was given intravenous Cardizem 3 times and a one-time oral beta-shirin in the ER but his pulse is still not well controlled. His pulse is around 110-120. We will resume patient home oral Cardizem, intravenous metoprolol as needed. Continue monitoring tech pt. (3) Current smoker Conclusion/Plan: Patient report is still smoking and request nicotine patch. Will order nicotine patch, advised patient quitted smoking (4) Renal mass, right Conclusion/Plan: Patient report he had right renal mass, and his PCP referral him to surgeon, and he will followup with. At this point, patient has normal renal function. Patient denies pain. Advised patient follow-up with his surgeon and oncologist as soon as possible (5) Medical non-compliance Conclusion/Plan: Patient reported he did not take his home medication for few days, it is likely the reason, his pulse was not in control now.Advised the patient make medical compliance. - Lab Results Fish Bones: 12/12/19 13:05 12/12/19 13:05 Core Measures - Anticipated LOS I expect patient to be DC'd or transferred within 96 hours.: Yes - DVT/VTE - Prophylaxis VTE/DVT Device ordered at admit?: Yes VTE/DVT Prophylaxis med ordered at admit?: Yes
[2019-12-12] MEDS ORDERED: PRENATAL VITAMIN TABLET PO SCH (13:00)
[2019-12-12 13:10] LABS: BASOPHILS # (AUTO) 0.1 10^3/uL (0.0-0.1); BASOPHILS % (AUTO) 0.8 %; EOSINOPHILS # (AUTO) 0.1 10^3/uL (0.0-0.7); EOSINOPHILS % (AUTO) 1.1 %; HGB - HEMOGLOBIN 13.4 g/dL (14.0-18.0); LYMPHOCYTES # (AUTO) 1.6 10^3/uL (1.5-3.5); LYMPHOCYTES % (AUTO) 26.2 %; MEAN CORPUSCULAR HEMOGLOBIN 32.8 pg (27.0-31.0); MEAN CORPUSCULAR HGB CONC 33.9 g/dL (32.0-36.0); MEAN CORPUSCULAR VOLUME 96.6 fL (80.0-94.0); MEAN PLATELET VOLUME 9.1 fL (7.4-11.4); MONOCYTES # (AUTO) 0.8 10^3/uL (0.0-1.0); MONOCYTES % (AUTO) 12.8 %; NEUTROPHILS # (AUTO) 3.6 10^3/uL (1.5-6.6); NEUTROPHILS % (AUTO) 58.8 %; PLT - PLATELET COUNT 242 10^3/uL (130-450); RED BLOOD COUNT 4.09 10^6/uL (4.70-6.10); RED CELL DISTRIBUTION WIDTH 12.8 % (12.0-15.0); WHITE BLOOD COUNT 6.2 x10^3/uL (4.8-10.8)
[2019-12-12 13:21] LABS: CALCIUM 8.9 mg/dL (8.5-10.3); CREATININE 0.8 mg/dL (0.6-1.2)
[2019-12-12 13:30] LABS: PT - PROTHROMBIN TIME 11.2 secs (9.9-12.6)
[2019-12-12] MEDS: ONDANSETRON 4 MG/2 ML VIAL IVP PRN ×2 (14:05→20:19)
[2019-12-12] MEDS: diltiaZEM CD 240 MG CAPSULE PO SCH (14:10)
[2019-12-12] MEDS: chlordiazePOXIDE 25 MG CAPSULE PO SCH ×2 (14:11→21:43)
[2019-12-12] MEDS: PANTOPRAZOLE 40 MG TABLET PO SCH (14:11)
[2019-12-12] MEDS: MULTIVITAMIN 10 ML, THIAMINE INJ 100 MG, FOLIC ACID INJ 1 MG in D5.45NS W/20 MEQ KCL 1,... IV SCH (16:39)
[2019-12-12] MEDS: ACETAMINOPHEN 325 MG TABLET PO PRN (16:55)
--- NOTE | 2019-12-12 17:15 | PHARMACY PROGRESS NOTE ---
- Best Possible Medication History Admit Date and Time: 12/12/19 1228 Processed by: Pharmacy Medication History completed: Yes Patient Interview: Completed Secondary Source(s): Pharmacy records, Insurance records As the person ultimately responsible for medication therapy, providers are able to order a medication from an existing home medication list in [facility] via the "Reconcile Routine" prior to Confirmation of that medication by residential support worker. Such practice is discouraged except when the physician, in their clinical judgment, deems that a medical need exists for a medication without regard to previous use.
[2019-12-12] MEDS: SODIUM CHLORIDE FLUSH 0.9% 10 ML SYRINGE IVP SCH ×2 (18:32→23:41)
[2019-12-12] MEDS: LORazepam 2 MG/ML VIAL IVP PRN (21:51)
[2019-12-13] MEDS: LORazepam 2 MG/ML VIAL IVP PRN (04:47)
[2019-12-13] MEDS: ACETAMINOPHEN 325 MG TABLET PO PRN ×2 (04:48→14:41)
[2019-12-13 05:38] LABS: BASOPHILS # (AUTO) 0.1 10^3/uL (0.0-0.1); BASOPHILS % (AUTO) 1.4 %; EOSINOPHILS # (AUTO) 0.1 10^3/uL (0.0-0.7); EOSINOPHILS % (AUTO) 2.8 %; HGB - HEMOGLOBIN 13.3 g/dL (14.0-18.0); LYMPHOCYTES # (AUTO) 1.8 10^3/uL (1.5-3.5); LYMPHOCYTES % (AUTO) 34.4 %; MEAN CORPUSCULAR HEMOGLOBIN 32.5 pg (27.0-31.0); MEAN CORPUSCULAR HGB CONC 33.6 g/dL (32.0-36.0); MEAN CORPUSCULAR VOLUME 96.8 fL (80.0-94.0); MEAN PLATELET VOLUME 9.8 fL (7.4-11.4); MONOCYTES # (AUTO) 0.5 10^3/uL (0.0-1.0); MONOCYTES % (AUTO) 10.4 %; NEUTROPHILS # (AUTO) 2.6 10^3/uL (1.5-6.6); NEUTROPHILS % (AUTO) 50.8 %; PLT - PLATELET COUNT 218 10^3/uL (130-450); RED BLOOD COUNT 4.09 10^6/uL (4.70-6.10); RED CELL DISTRIBUTION WIDTH 12.7 % (12.0-15.0); WHITE BLOOD COUNT 5.1 x10^3/uL (4.8-10.8)
[2019-12-13 05:46] LABS: CALCIUM 8.8 mg/dL (8.5-10.3); CREATININE 0.7 mg/dL (0.6-1.2)
[2019-12-13] MEDS: PANTOPRAZOLE 40 MG TABLET PO SCH (06:42)
[2019-12-13] MEDS ORDERED: THIAMINE 100 MG TABLET PO SCH (09:00)
[2019-12-13] MEDS: chlordiazePOXIDE 25 MG CAPSULE PO SCH ×2 (09:28→20:37)
[2019-12-13] MEDS: diltiaZEM CD 240 MG CAPSULE PO SCH (09:28)
[2019-12-13] MEDS: ENOXAPARIN 40 MG/0.4 ML SYRINGE SUBQ SCH (09:29)
[2019-12-13] MEDS: NICOTINE 14 MG PATCH TOP SCH (09:30)
[2019-12-13] MEDS: MULTIVITAMIN 10 ML, THIAMINE INJ 100 MG, FOLIC ACID INJ 1 MG in D5.45NS W/20 MEQ KCL 1,... IV SCH (09:31)
[2019-12-13] MEDS: SODIUM CHLORIDE FLUSH 0.9% 10 ML SYRINGE IVP SCH ×2 (09:32→17:08)
--- NOTE | 2019-12-13 11:25 | Discharge Plan ---
Discharge Plan Problem Reviewed?: Yes Disposition: Home, Self Care Condition: Stable Prescriptions: LORazepam [Ativan] 1 mg PO Q8H PRN #10 tablet PRN Reason: Anxiety diltiaZEM CD [Cardizem Cd] 240 mg PO DAILY #15 capsule Vitamin [Trinatal Rx 1] 1 tab PO DAILY #30 tablet Thiamine [Vitamin B-1] 100 mg PO DAILY #30 tablet Diet: Regular Activity Restrictions: Activity as Tolerated Shower Restrictions: No (fall precaution) Instruction Topics: Diltiazem tablets, Atrial Fibrillation, Alcoholism, Alcoholism Impact, Lorazepam tablets Health Concerns: a fib with RVR, alcoholism, renal mass Plan of Treatment: after you were treated in hospital, your pulse from Afib with RVR was good controlled. you are prescribed Cardizem, advise followup with your PCP and site controller as out-pt. advise you quit your alcoholism, social sciences instructor will help you and provide resource as well. You are prescribed , Vitamin B1, and Ativan to help your quitting of alcoholism. Advise you closely followup with PCP and your surgeon referral from your PCP for your renal mass. Care Goals: stabilization and improvement of your medical conditions Assessment: discussed the care plan with you, you understood. Additional Instructions or Follow Up instructions: You may followup with your PCP in one week. Should your symptoms return or worsen, you may present ER or call 911 for help. No Smoking: If you smoke, Please STOP! Call for help.
--- NOTE | 2019-12-13 11:55 | DISCHARGE SUMMARY ---
Discharge Summary Admit Date: 12/12/19 Discharge Date: 12/13/19 Discharging Provider: Joaquim Chilel Primary Care Provider: Angela Rojas Condition at Discharge: Stable Discharge Disposition: 01 Home, Self Care Discharge Facility Name: home - [facility] History of Present Illness: This is a 58-year-old male with a past medical history significant for atrial f ibrillation, COPD, tobacco abuse, recently diagnosis of right renal mass, who present ER on yesterday for suicide idea. DCR cleared for return to home and pt report he was just messed with alcohol, no suicide idea. Patient also reported he had recently diagnosis of right renal mass and he reported his PCP referral to surgery consult to him. In [facility], December 02, 2019 patient had CAT scan which did show pt had right renal mass. He reported he did not take his home medication for a few days. Patient denies chest pain, fever, chill, shortness of breathing. Patient was given 3 time intravenous Cardizem and a one-time oral metoprolol in ER, but her pulse is still around 110-120. Chest x-ray was unremarkable, laboratory test is also unremarkable. Patient is admitted for further medical management. Discussed the care goal with patient, patient request DNR. - ALLERGIES Allergies/Adverse Reactions: Allergies Allergy/AdvReac Type Severity Reaction Status Date / Time cat dander Allergy Watery Verified 12/13/19 08:09 eyes/itching dog dander Allergy Watery Verified 12/13/19 08:09 eyes/itching house dust Allergy Watery Verified 12/13/19 08:09 eyes/itching - MEDICATIONS Home Medications: Ambulatory Orders Medication Instructions Recorded Confirmed Albuterol Sulfate [Albuterol 2 puffs INH Q6H PRN 07/08/19 12/12/19 Sulfate Hfa] Nicotine 14 mg Patch [Nicoderm] 1 each TOP Q24H #14 patch 07/09/19 12/12/19 Buspirone HCl 10 mg PO BID 12/12/19 12/12/19 Famotidine [Acid Controller] 20 mg PO DAILY 12/12/19 12/12/19 Fluoxetine HCl [Prozac] 20 mg PO DAILY 12/12/19 12/12/19 QUEtiapine [SEROquel] 12.5 mg PO QPM 12/12/19 12/12/19 LORazepam [Ativan] 1 mg PO Q8H PRN #10 tablet 12/13/19 Vitamin [Trinatal Rx 1] 1 tab PO DAILY #30 tablet 12/13/19 Thiamine [Vitamin B-1] 100 mg PO DAILY #30 tablet 12/13/19 diltiaZEM CD [Cardizem Cd] 240 mg PO DAILY #15 capsule 12/13/19 - LABS Result Diagrams: 12/13/19 04:55 12/13/19 04:55 - SEPSIS Current Stage of Sepsis: Ruled out
--- NOTE | 2019-12-13 16:14 | PROVIDER PROGRESS NOTE ---
Subjective - Prog Note Date Prog Note Date: 12/13/19 - Subjective Pt reports feeling: Worse Subjective: In the morning when I assess patient, patient reported he feels good. He is ready to go home. He denies any suicide idea or attempt. Patient's pulse was in the good control. Nurse report nurse tried to go to pt's room to discharge patient. Nurse found he blow air into intravenous line and attempt to suicide himself. Current Medications - Current Medications Current Medications: Active Medications Acetaminophen (Tylenol) 650 mg PO Q4HR PRN PRN Reason: Pain 1 to 4 Last Admin: 12/13/19 14:41 Dose: 650 mg Documented by: Chlordiazepoxide HCl (Librium) 25 mg PO BID [facility] Last Admin: 12/13/19 09:28 Dose: 25 mg Documented by: Diltiazem HCl (Cardizem Cd) 240 mg PO DAILY [facility] Last Admin: 12/13/19 09:28 Dose: 240 mg Documented by: Enoxaparin Sodium (Lovenox) 40 mg SUBQ DAILY [facility] Last Admin: 12/13/19 09:29 Dose: 40 mg Documented by: Lorazepam (Ativan Inj (Vial)) 1 mg IVP Q30M PRN; Protocol PRN Reason: CIWA >8 Last Admin: 12/13/19 04:47 Dose: 1 mg Documented by: Nicotine (Nicoderm) 1 patch TOP DAILY [facility] Last Admin: 12/13/19 09:30 Dose: 1 patch Documented by: Ondansetron HCl (Zofran Inj) 4 mg IVP Q6HR PRN PRN Reason: Nausea / Vomiting Last Admin: 12/12/19 20:19 Dose: 4 mg Documented by: Pantoprazole Sodium (Protonix) 40 mg PO QDAC [facility] Last Admin: 12/13/19 06:42 Dose: 40 mg Documented by: Multivit/Folic Acid/Iron (Trinatal Rx 1) 1 tab PO DAILY [facility] Sodium Chloride (Normal Saline Flush 0.9%) 10 ml IVP PRN PRN PRN Reason: NEEDED PER PROVIDER ORDERS Sodium Chloride (Normal Saline Flush 0.9%) 10 ml IVP 0100,0900,1700 [facility] Last Admin: 12/13/19 09:32 Dose: 10 ml Documented by: Thiamine HCl (Vitamin B-1) 100 mg PO DAILY [facility] Albuterol Sulfate [Albuterol Sulfate Hfa] 2 puffs INH Q6H PRN 07/08/19 Buspirone HCl 10 mg PO BID 12/12/19 Famotidine [Acid Controller] 20 mg PO DAILY 12/12/19 Fluoxetine HCl [Prozac] 20 mg PO DAILY 12/12/19 QUEtiapine [SEROquel] 12.5 mg PO QPM 12/12/19 Objective - Vital Signs/Intake & Output Vital Signs: Vital Signs x48h Temp Pulse Pulse Resp BP BP Pulse Ox 12/13/19 11:09 37.1 C 82 20 105/76 92 12/13/19 09:33 111 H 107/68 12/13/19 08:03 37.1 C 84 18 99/65 94 Intake & Output: Intake & Output 12/10/19 12/11/19 12/12/19 12/13/19 23:59 23:59 23:59 23:59 Intake Total 795.757 9147.533 1111.2 Output Total 1100 975 Balance 414.167 339.533 136.2 - Objective General Appearance: positive: No acute distress, Alert. negative: Lethargic Eyes Bilateral: positive: Normal inspection, PERRL, No lid inflammation ENT: positive: ENT inspection nml, No signs of dehydration. negative: Purulent nasal drainage Neck: positive: Nml inspection, Trachea midline. negative: Thyromegaly, Stiff neck, Tracheal deviation Respiratory: positive: Chest non-tender, No respiratory distress, Breath sounds nml. negative: Wheezes, Rales, Rhonchi Cardiovascular: positive: Regular rate & rhythm, No murmur. negative: Tachycardia, Bradycardia, Systolic murmur, Diastolic murmur Peripheral Pulses: 2+ Radial (R), 2+ Radial (L) Abdomen: positive: Non-tender, Nml bowel sounds, No distention. negative: Tenderness, Guarding, Rebound Back: positive: Nml inspection Skin: positive: Color nml, No rash, Warm, Dry. negative: Cyanosis, Diaphoresis, Pallor Extremities: positive: Non-tender, Full ROM, Nml appearance. negative: Calf tenderness Neurologic/Psychiatric: positive: Oriented x3, Motor nml, Sensation nml. negative: Weakness, Sensory loss, Facial droop, Slurred/abnml speech, Depressed mood/affect - Lab Results Fish Bones: 12/13/19 04:55 12/13/19 04:55 Other Labs: Lab Results x24hrs 12/13/19 12/13/19 Range/Units 04:55 04:55 WBC 5.1 (4.8-10.8) x10^3/uL RBC 4.09 L (4.70-6.10) 10^6/uL Hgb 13.3 L (14.0-18.0) g/dL Hct 39.6 L (42.0-52.0) % MCV 96.8 H (80.0-94.0) fL MCH 32.5 H (27.0-31.0) pg MCHC 33.6 (32.0-36.0) g/dL RDW 12.7 (12.0-15.0) % Plt Count 218 (130-450) 10^3/uL MPV 9.8 (7.4-11.4) fL Neut # (Auto) 2.6 (1.5-6.6) 10^3/uL Lymph # (Auto) 1.8 (1.5-3.5) 10^3/uL [place] # (Auto) 0.5 (0.0-1.0) 10^3/uL Eos # (Auto) 0.1 (0.0-0.7) 10^3/uL Baso # (Auto) 0.1 (0.0-0.1) 10^3/uL Absolute Nucleated RBC 0.00 x10^3/uL Nucleated RBC % 0.0 /100WBC Sodium 138 (135-145) mmol/L Potassium 3.5 (3.5-5.0) mmol/L Chloride 100 L (101-111) mmol/L Carbon Dioxide 30 (21-32) mmol/L Anion Gap 8.0 (6-13) BUN 10 (6-20) mg/dL Creatinine 0.7 (0.6-1.2) mg/dL Estimated GFR (MDRD) 115 (>89) Glucose 101 H (70-100) mg/dL Calcium 8.8 (8.5-10.3) mg/dL ABX Reporting Has patient been on IV antibiotics over the past 48 hours?: No Sepsis Event Note (H) - Evaluation Current Stage of Sepsis: Ruled out Assessment/Plan - Problem List (1) Suicide attempt Impression: 12/12 pt reported to me he had no Suicide idea or attempt on yesterday in his admission, DCR cleared pt for suicide on yesterday. pt had no suicide idea when I assessed him at today morning. But Patient had suicide attempt and tried to blow air into IV line when nurse tried to d/c him. I discussed with pt, pt did still have suicide idea now. he state his life was not meaningful. pt like to donate his organs. I tried to explain what my life meaningful mean and encourage he has active life. order: 1:1 observation, suicide alert. d/c all IV meds, d/c tele line continue consult with cushion worker for SI/SA/alcoholism. cushion worker report to DCR, and DCR assessment is pending (2) Atrial fibrillation with RVR Conclusion/Plan: 12/12 resolved. HR is around 80-90. Continue oral Cardizem. Patient did not take his home medication Cardizem. Patient denies chest pain, palpitation. Troponin was negative, patient had no echo since pt had diagnosis of afib with RVR we will order echo. Patient was given intravenous Cardizem 3 times and a one-time oral beta-shirin in the ER but his pulse is still not well controlled. His pulse is around 110-120. We will resume patient home oral Cardizem, intravenous metoprolol as needed. Continue magazine hand pt. (3)alcoholism 12/12 Patient has hx of alcoholism, alcohol test had 191 in ER. continue CIWA protocol, change to PO Ativan, continue Librium (4) Current smoker Conclusion/Plan: Patient report is still smoking and request nicotine patch. Will order nicotine patch, advised patient quitted smoking (5) Renal mass, right Conclusion/Plan: Patient report he had right renal mass, and his PCP referral him to surgeon, and he will followup with. At this point, patient has normal renal function. Patient denies pain. Advised patient follow-up with his surgeon and oncologist as soon as possible (6) Medical non-compliance Conclusion/Plan: Patient reported he did not take his home medication for few days, it is likely the reason, his pulse was not in control now.Advised the patient make medical compliance.
[2019-12-13] MEDS ORDERED: LORazepam 1 MG TABLET PO PRN (16:52)
[2019-12-14] MEDS: SODIUM CHLORIDE FLUSH 0.9% 10 ML SYRINGE IVP SCH ×2 (00:20→10:31)
[2019-12-14 05:41] LABS: BASOPHILS # (AUTO) 0.1 10^3/uL (0.0-0.1); BASOPHILS % (AUTO) 1.4 %; EOSINOPHILS # (AUTO) 0.2 10^3/uL (0.0-0.7); EOSINOPHILS % (AUTO) 3.8 %; HGB - HEMOGLOBIN 12.5 g/dL (14.0-18.0); LYMPHOCYTES # (AUTO) 2.2 10^3/uL (1.5-3.5); LYMPHOCYTES % (AUTO) 43.6 %; MEAN CORPUSCULAR HEMOGLOBIN 32.3 pg (27.0-31.0); MEAN CORPUSCULAR HGB CONC 33.2 g/dL (32.0-36.0); MEAN CORPUSCULAR VOLUME 97.4 fL (80.0-94.0); MEAN PLATELET VOLUME 9.5 fL (7.4-11.4); MONOCYTES # (AUTO) 0.5 10^3/uL (0.0-1.0); MONOCYTES % (AUTO) 9.4 %; NEUTROPHILS # (AUTO) 2.1 10^3/uL (1.5-6.6); NEUTROPHILS % (AUTO) 41.6 %; PLT - PLATELET COUNT 201 10^3/uL (130-450); RED BLOOD COUNT 3.87 10^6/uL (4.70-6.10); RED CELL DISTRIBUTION WIDTH 12.6 % (12.0-15.0)
[2019-12-14 05:50] LABS: CREATININE 0.8 mg/dL (0.6-1.2)
[2019-12-14] MEDS: PANTOPRAZOLE 40 MG TABLET PO SCH (06:00)
[2019-12-14] MEDS ORDERED: POTASSIUM CHLORIDE 20 MEQ TABLET PO SCH (07:29)
[2019-12-14 07:53] VITALS: BP 122/78
[2019-12-14] MEDS: chlordiazePOXIDE 25 MG CAPSULE PO SCH (08:20)
[2019-12-14] MEDS: ENOXAPARIN 40 MG/0.4 ML SYRINGE SUBQ SCH (08:21)
[2019-12-14] MEDS: diltiaZEM CD 240 MG CAPSULE PO SCH (08:21)
[2019-12-14] MEDS: NICOTINE 14 MG PATCH TOP SCH (08:21)
[2019-12-14] MEDS ORDERED: THIAMINE 100 MG TABLET PO SCH (09:00)
[2019-12-14] MEDS ORDERED: PRENATAL VITAMIN TABLET PO SCH (09:00)
--- NOTE | 2019-12-14 11:11 | DISCHARGE SUMMARY ---
Discharge Summary Admit Date: 12/12/19 Discharge Date: 12/14/19 Discharging Provider: Joaquim Chilel Primary Care Provider: Ms Willard Yenny Condition at Discharge: Stable Discharge Disposition: 01 Home, Self Care Discharge Facility Name: [facility] - DIAGNOSES Discharge Diagnoses with Status of Each Condition: (1) Suicide attempt Patient had suicide attempt and tried to blow air into IV line in the hospital. inventory worker was consulted. Per social service assistant report, DCR came to assess pt and had an involuntary placement for pt at [facility]. pt is transferred to [facility] care now. Per EMS's request for PLOST, and nurse report pt has no updated PLOST. pt is alert and oriented plus 3, pt voluntarily sign PLOST forum. At the time, Nurse and INDUSTRIAL ACCOUNTANT are the bedside as well. (2) Atrial fibrillation with RVR Conclusion/Plan: resolved. Recurrent Afib which was likely from pt's medical noncompliance. pt's pulse was controlled. BP is in the normal arrange. pt denies chest pain, shortness of breath, dizziness, lightheaded. pt has no home blood thinner. According to pt's medical hx, his chadsvasc is 0. pt is prescribed Cardizem. Pt's ECHO was unremarkable. (3)alcoholism Patient has hx of alcoholism, alcohol test had 191 in ER. pt is prescribed , Vitamin B1, Short term of Ativan to help his possible alcohol withdrawal. (4) Current smoker advise pt quit smoker, specially he had renal mass now. (5) Renal mass, right pt report he has been followed up with his PCP and had Surgeon to be followup, advise pt continue followup with surgeon. (6) Medical non-compliance pt report he did not take his home medication for a few days, it is likely the cause to have his recurrent Afib with RVR. advise pt make medical compliance. - HPI History of Present Illness: This is a 58-year-old male with a past medical history significant for atrial fibrillation, COPD, tobacco abuse, recently diagnosis of right renal mass, who present ER on yesterday for suicide idea. DCR cleared for return to home and pt report he was just messed with alcohol, no suicide idea. Patient also reported he had recently diagnosis of right renal mass and he reported his PCP referral to surgery consult to him. [facility], December [facility], 2019 patient had CAT scan which did show pt had right renal mass. He reported he did not take his home medication for a few days. Patient denies chest pain, fever, chill, shortness of breathing. Patient was given 3 time intravenous Cardizem and a one-time oral metoprolol in ER, but her pulse is still around 110-120. Chest x-ray was unremarkable, laboratory test is also unremarkable. Patient is admitted for further medical management. Discussed the care goal with patient, patient request DNR. - HOSPITAL COURSE Hospital Course: Patient was admitted for atrial fibrillation with RVR. Patient has history of alcoholism. Patient was clearly from Suicide idea by DCR at the emergency room. After pt was treated with Cardizem, CIWA protocol and banana bag, hydration with IVF, tele monitor. pt's pulse was controlled. BP is the normal arrange. pt was ready to be d/c charge. However when nurse prepared for pt to be discharge, pt did blow air into his IV line to attempt to suicide him. inventory worker was consulted again and DCR was contacted immediately by inventory worker. pt was put in 1:1 observation and suicide was alert. DCR assessed pt and had an involuntary placement for pt at [facility]. Pt is alert and oriented plus three, and voluntary sign new PLOST forum. - ALLERGIES Allergies/Adverse Reactions: Allergies Allergy/AdvReac Type Severity Reaction Status Date / Time cat dander Allergy Watery Verified 12/13/19 08:09 eyes/itching dog dander Allergy Watery Verified 12/13/19 08:09 eyes/itching house dust Allergy Watery Verified 12/13/19 08:09 eyes/itching - MEDICATIONS Home Medications: Ambulatory Orders Medication Instructions Recorded Confirmed Albuterol Sulfate [Albuterol 2 puffs INH Q6H PRN 07/08/19 12/12/19 Sulfate Hfa] Nicotine 14 mg Patch [Nicoderm] 1 each TOP Q24H #14 patch 07/09/19 12/12/19 Buspirone HCl 10 mg PO BID 12/12/19 12/12/19 Famotidine [Acid Controller] 20 mg PO DAILY 12/12/19 12/12/19 Fluoxetine HCl [Prozac] 20 mg PO DAILY 12/12/19 12/12/19 QUEtiapine [SEROquel] 12.5 mg PO QPM 12/12/19 12/12/19 LORazepam [Ativan] 1 mg PO Q8H PRN #10 tablet 12/13/19 Vitamin [Trinatal Rx 1] 1 tab PO DAILY #30 tablet 12/13/19 Thiamine [Vitamin B-1] 100 mg PO DAILY #30 tablet 12/13/19 diltiaZEM CD [Cardizem Cd] 240 mg PO DAILY #15 capsule 12/13/19 - PHYSICAL EXAM AT DISCHARGE General Appearance: positive: No acute distress, Alert. negative: Lethargic Eyes Bilateral: positive: Normal inspection, PERRL, No lid inflammation ENT: positive: ENT inspection nml, No signs of dehydration. negative: Purulent nasal drainage Neck: positive: Nml inspection, Thyroid nml, Trachea midline. negative: Thyromegaly, Tracheal deviation Respiratory: positive: Chest non-tender, No respiratory distress, Breath sounds nml. negative: Wheezes, Rales, Rhonchi Cardiovascular: positive: Regular rate & rhythm, No murmur. negative: Tachycardia, Bradycardia, Systolic murmur, Diastolic murmur Peripheral Pulses: positive: 2+ Abdomen: positive: Non-tender, Nml bowel sounds, No distention. negative: Tenderness, Guarding, Rebound Back: positive: Nml inspection Skin: positive: Color nml, No rash, Warm, Dry. negative: Cyanosis, Diaphoresis, Pallor Extremities: positive: Non-tender, Full ROM, Nml appearance. negative: Calf tenderness Neurologic/Psychiatric: positive: Oriented x3, Motor nml, Sensation nml. negative: Weakness, Sensory loss, Facial droop, Slurred/abnml speech - LABS Result Diagrams: 12/14/19 05:15 12/14/19 05:18 - SEPSIS Current Stage of Sepsis: Ruled out - FOLLOW UP [facility] - TIME SPENT Time Spent in Discharge (Minutes): 30
[2019-12-15] MEDS ORDERED: FAMOTIDINE 20 MG TABLET PO SCH (09:00)
== END 2019-12-14 10:45 ==
LOC: EDUNIT# → ED 19:54 → MS2 12-12 12:28
PROVIDERS: ADMIT Nurse Practitioner Gerontology; ATTEND Nurse Practitioner Gerontology
DX: I48.91 Unspecified atrial fibrillation (principal); T46.1X6A Underdosing of calcium-channel blockers, initial encounter; Z91.128 Patient's intentional underdosing of medication regimen for other reason; T14.91XA Suicide attempt, initial encounter; X83.8XXA Intentional self-harm by other specified means, initial encounter; Y92.230 Patient room in hospital as the place of occurrence of the external cause; F10.129 Alcohol abuse with intoxication, unspecified; Y90.6 Blood alcohol level of 120-199 mg/100 ml; F41.9 Anxiety disorder, unspecified; N28.89 Other specified disorders of kidney and ureter; R10.9 Unspecified abdominal pain; F17.210 Nicotine dependence, cigarettes, uncomplicated; Z66 Do not resuscitate
CPT/HCPCS: 36415; 71045; 80048; 80053; 80306; 80307; 80320; 80329; 81001; 82009; 82803; 83605; 83690; 83735; 83880; 84443; 84484; 85025; 85610; 85730; 87635; 93005; 93306; 96361; 96365; 96366; 96367; 96372; 96375; 96376; 99285; A9270; G0378; J1650; J2060; J3411; J7040; J8499; Q0162; 81003; 87086

== ENCOUNTER 2020-01-26 07:26 | Outpatient (CLI) | payer MEDICAID ==
[2020-01-26] MEDS ORDERED: IOVERSOL 320 50 ML VIAL ONE (07:44)
[2020-01-26] MEDS ORDERED: IOVERSOL 320 100 ML VIAL IVP ONE ×2 (07:44→07:57)
[2020-01-26] MEDS ORDERED: IOVERSOL 320 50 ML VIAL PO ONE (07:57)
--- NOTE | 2020-01-26 09:26 | CT Report ---
PROCEDURE: CHEST W INDICATIONS: OTHER SPECIFIED DISORDERS OF KIDNEY AND URETER CONTRAST: IV CONTRAST: Optiray 320 ml: 100 PO CONTRAST: Optiray 320 ml50 TECHNIQUE: After the administration of intravenous contrast, 5 mm thick sections acquired from the pulmonary api chuy to the posterior costophrenic angles. 7 mm thick coronal MIP reformats were acquired. For radia tion dose reduction, the following was used: automated exposure control, adjustment of mA and/or kV according to patient size. COMPARISON: Chest x-ray dated 12.11.19 FINDINGS: Image quality: Excellent. Lungs and pleura: There is mild dependent bibasilar atelectasis. Scarring within the inferolateral li ngula. No pleural effusions or pneumothorax. Central and peripheral airways are patent and normal in caliber. Mediastinum: Heart size is normal. No pericardial effusion. No mediastinal or hilar adenopathy by size criteria. Thoracic aorta and central pulmonary arteries are normal in size. Esophagus is anastasiya l in caliber. No hiatal hernia. Bones and chest wall: No suspicious bony lesions. No vertebral body compression fractures. No axil mathew or supraclavicular adenopathy by size criteria. Thyroid gland is within normal limits. Abdomen: Visualized upper abdominal solid organs appear normal. Upper abdominal bowel loops are nor mal in caliber. IMPRESSION: Negative examination. No evidence of malignancy. Reviewed by: Aftab Alvarado MD on 01/26/2020 8:25 AM [facility] Approved by: Aftab Alvarado MD on 01/26/2020 8:25 AM [facility] Station ID: [id number]
--- NOTE | 2020-01-26 10:17 | CT Report ---
PROCEDURE: Abdomen/Pelvis W INDICATIONS: OTHER SPECIFIED DISORDERS OF KIDNEY AND URETER CONTRAST: IV CONTRAST: Optiray 320 ml: 100 PO CONTRAST: Optiray 320 ml50 TECHNIQUE: After the administration of oral and intravenous contrast, 5 mm thick sections acquired from the diap hragms to the symphysis. 5 mm thick coronal and sagittal reformats were acquired. For radiation dos e reduction, the following was used: automated exposure control, adjustment of mA and/or kV accordin g to patient size. COMPARISON: CT abdomen 11/30/2019 FINDINGS: Image quality: Excellent. ABDOMEN: Lung bases: New opacity within the lingula at the left minor fissure. Heart size is normal. Solid organs: Liver is enlarged with steatosis. Spleen is unremarkable. Gallbladder is unremarkable Biliary system is non dilated. Pancreas enhances normally. No adrenal nodules. The previously iden tified anterior inferior right renal pole exophytic mass is unchanged. There is an enhancing septated and nodular component along the posterior aspect. It is overall unchanged. Peritoneum and bowel: Bowel loops are nonobstructed. There is incomplete distention of the descendin g sigmoid colon, limiting evaluation. No free fluid or air. Nodes and vessels: No retroperitoneal or mesenteric adenopathy by size criteria. Aorta and inferior vena cava are normal in size. Miscellaneous: No ventral hernias. PELVIS: Genitourinary: Bladder wall thickness is normal. Miscellaneous: No inguinal hernias or adenopathy. Bones: No suspicious bony lesions. No vertebral body compression fractures. IMPRESSION: 1. Unchanged appearance of Bosniak 3/4 right renal mass as above. No evidence of metastatic disease. 2. Focal area of opacity within the lingula suggestive of atelectasis. Reviewed by: Destiney Lane MD on 01/26/2020 10:15 AM PST Approved by: Destiney Lane MD on 01/26/2020 10:15 AM PST Station ID: [id number]
== END 2020-01-26 07:27 | disposition home or self-care (01) ==
LOC: DI 07:26
PROVIDERS: ATTEND Internal Medicine Hematology & Oncology
DX: N28.89 Other specified disorders of kidney and ureter (principal)
CPT/HCPCS: 71260; 74177; Q9967

== ENCOUNTER 2020-03-31 12:37 | Outpatient (CLI) | payer MEDICAID ==
--- NOTE | 2020-03-31 13:13 | XRAY Report ---
PROCEDURE: Chest 2 View X-Ray INDICATIONS: COUGH TECHNIQUE: 2 view(s) of the chest. COMPARISON: 12/11/[address] chest dated 01/26/2020 FINDINGS: Surgical changes and devices: None. Lungs and pleura: No pleural effusions or pneumothorax. Lungs are clear. Mediastinum: Mediastinal contours are normal. Heart size is normal. Bones and chest wall: Remote bilateral rib fractures. No acute osseous abnormality. No suspicious leonard ny abnormalities. Soft tissues appear unremarkable. IMPRESSION: No evidence of an acute cardiopulmonary abnormality. Reviewed by: Brennan Pretty DO on 03/31/2020 12:12 PM [facility] Approved by: Brennan Pretty DO on 03/31/2020 12:12 PM [facility] Station ID: [id number]
== END 2020-03-31 12:38 | disposition home or self-care (01) ==
LOC: DI 12:37
PROVIDERS: ATTEND Physician Assistant Medical
DX: R05 Cough (principal)

== ENCOUNTER 2020-04-04 15:07 | Outpatient (CLI) | payer MEDICAID ==
--- NOTE | 2020-04-04 17:24 | Ultrasound Report ---
PROCEDURE: Retroperitoneal INDICATIONS: RENAL MASS TECHNIQUE: Real-time scanning was performed of the retroperitoneal organs, with image documentation. COMPARISON: CT abdomen pelvis 01/26/2020, 11/30/2019 FINDINGS: Kidneys: Kidneys are normal in size. Right kidney measures 12.3 cm long; left kidney measures 12.1 cm long. Right renal cortical thickness is 1.6 cm; left renal cortical thickness is 1.6 cm. No hydr onephrosis, or nephrolithiasis. Within the inferior pole of the right kidney there is a heterogeneou s focus of echogenicity measuring 4.7 x 3.0 x 2.8 cm. It appears to be solid with mild increased vasc ularity. This corresponds to renal mass identified on CT abdomen pelvis of 01/26/2020 and 11/30/2019. Bladder: Prevoid volume 1 21 cc, post void residual 3.9 cc. Prostate measures 2.9 x 3.5 x 5.0 cm. Kaleb ateral ureteral jets are identified. No bladder masses are identified. IMPRESSION: 1. Solid mass within the left inferior pole corresponding to previous CT exams. Although it is stable in size compared to 11/30/2019, overall appearance is most suggestive of a high grade Bosniak lesion/ low level renal cell carcinoma. Reviewed by: Destiney Lane MD on 04/04/2020 5:22 PM PST Approved by: Destiney Lane MD on 04/04/2020 5:22 PM PST Station ID: [id number]
== END 2020-04-04 15:08 | disposition home or self-care (01) ==
LOC: DI 15:07
PROVIDERS: ATTEND Urology
DX: N28.89 Other specified disorders of kidney and ureter (principal)

== ENCOUNTER 2020-10-25 10:14 | Outpatient (CLI) | payer MEDICAID ==
[2020-10-25] MEDS ORDERED: IOPAMIDOL-300 50 ML VIAL ONE ×2 (10:39→12:02)
[2020-10-25] MEDS ORDERED: IOPAMIDOL-300 100 ML VIAL IVP ONE (11:59)
[2020-10-25] MEDS ORDERED: IOPAMIDOL-300 50 ML VIAL PO ONE (12:01)
--- NOTE | 2020-10-25 14:48 | CT Report ---
PROCEDURE: ABDOMEN W/WO INDICATIONS: RENAL CYST CONTRAST: IV CONTRAST: Isovue 300 ml: 140 PO CONTRAST: *NO PO CONTRAST TECHNIQUE: After the administration of intravenous contrast, 5 mm thick sections acquired from the diaphragm to the symphysis. 5 mm coronal and sagittal reformats were acquired. For radiation dose reduction, the following was used: automated exposure control, adjustment of mA and/or kV according to patient siz e. COMPARISON: Retroperitoneal ultrasound 04/04/2020, CT abdomen pelvis 01/26/2020, CT abdomen 11/30/2019 . FINDINGS: Image quality: Excellent. Lung bases: There is mild dependent atelectasis bilaterally. Heart size is normal. Genitourinary: There is an exophytic cyst extending anteriorly from the inferior pole the right kidn ey measuring up to 4.4 x 3.3 x 3.5 cm in dimension (series 14/40 image, /34), similar in overall si ze compared to the study of 11/30/2019 on which it measured approximately 4.1 x 3.9 x 4.3 cm at compar able levels. There is an eccentric nodular component within the cyst measuring up to 2.5 cm (6/40) wh ich demonstrates thick septations and measurable internal enhancement. The findings are again consist ent with a Bosniak IV cystic renal mass. No evidence of adjacent solid organ invasion. No extension i nto the renal vein or renal collecting system. Left kidney demonstrates no mass lesions. There is no hydronephrosis or nephrolithiasis. The opacified renal collecting systems demonstrate no discrete amanda ling defects. Solid organs: The liver demonstrates no discrete mass. Gallbladder appears within normal limits with out calcified gallstones. The spleen is normal in size. Biliary system is non dilated. Pancreas enha nces normally. No adrenal nodules. Peritoneum and bowel: Visualized bowel loops are normal in caliber and wall thickness. No free fluid or air. Nodes and vessels: No retroperitoneal or mesenteric adenopathy by size criteria. Aorta and inferior vena cava are normal in caliber. Bones: No suspicious bony lesions. No vertebral body compression fractures. Miscellaneous: No ventral hernias. IMPRESSION: 1. Exophytic Bosniak IV cystic renal mass in the right kidney appears overall similar in size compare d to the prior studies. The findings are again highly suspicious for malignancy. 2. No evidence of invasion to adjacent solid organs, renal vein, or renal collecting system. No evide nce of metastatic disease in the abdomen. Reviewed by: Omkar Dickerson MD on 10/25/2020 2:46 PM PDT Approved by: Omkar Dickerson MD on 10/25/2020 2:46 PM PDT Station ID: [id number]
== END 2020-10-25 10:15 | disposition home or self-care (01) ==
LOC: DI 10:14
PROVIDERS: ATTEND Urology
DX: N28.1 Cyst of kidney, acquired (principal)
CPT/HCPCS: 36415; 74170; 82565; 84520; Q9967

== ENCOUNTER 2021-04-08 09:33 | Outpatient (CLI) | payer MEDICAID ==
--- NOTE | 2021-04-09 10:21 | Ultrasound Report ---
PROCEDURE: Retroperitoneal INDICATIONS: RIGHT RENAL LESION TECHNIQUE: Real-time scanning was performed of the retroperitoneal organs, with image documentation. COMPARISON: Ultrasound retroperitoneum, 04/04/2020. CT abdomen with and without contrast, 10/25/2020 a nd 11/30/2019. CT abdomen and pelvis with contrast, 01/26/2020. FINDINGS: Kidneys: There is a large, heterogeneous, mixed solid and cystic exophytic mass in the inferior pole of the right kidney measuring 5.1 x 3.7 x 3.3 cm (previously measuring 4.7 x 3.0 x 2.8 cm on the [facility] ultrasound dated 04/04/2020 and 4.4 x 3.3 x 3.5 cm on the comparison CT dated 10/25/2020). The mass demonstrates mild peripheral vascularity on Doppler ultrasound. Kidneys are normal in size. Right kidney measures 13.1 cm long; left kidney measures 12.3 cm long. Right renal cortical thickness is 1.7 cm; left renal cortical thickness is 1.6 cm. No hydronephrosis , or nephrolithiasis. Bladder: Normal appearance. No significant post void residual. Note is made of enlarged prostate deandre suring 4.9 x 3.9 x 4.9 cm. There is hepatic fatty infiltration. No free abdominal fluid. IMPRESSION: 1. Slight interval enlargement of a large, complex, mixed solid and cystic mass in the inferior pole of the right kidney. 2. Enlarged prostate. 3. Hepatic fatty infiltration. Reviewed by: Jenn Yu MD on 04/09/2021 10:19 AM PST Approved by: Jenn Yu MD on 04/09/2021 10:19 AM PST Station ID: [id number]
== END 2021-04-08 09:34 | disposition home or self-care (01) ==
LOC: DI 09:33
PROVIDERS: ATTEND Urology
DX: N28.89 Other specified disorders of kidney and ureter (principal); N40.0 Benign prostatic hyperplasia without lower urinary tract symptoms; K76.0 Fatty (change of) liver, not elsewhere classified

== ENCOUNTER → 2022-02-19 | Outpatient (CLI) | payer MEDICAID | END | disposition critical access hospital (66) | LOC: EMS 23:19 | DX: F10.129 Alcohol abuse with intoxication, unspecified (principal); R45.851 Suicidal ideations; R45.1 Restlessness and agitation | CPT/HCPCS: A0425; A0429; A0999 ==

== ENCOUNTER 2022-02-20 13:37 | Outpatient (CLI) | payer MEDICAID | END 2022-02-20 13:38 | disposition critical access hospital (66) | LOC: EMS 13:37 | DX: R06.00 Dyspnea, unspecified (principal) | CPT/HCPCS: A0425; A0429; A0999 ==

== ENCOUNTER 2022-02-20 13:51 | Emergency (ER) | payer MEDICAID ==
--- NOTE | 2022-02-20 13:54 | ED Physician Documentation ---
History of Present Illness - Stated complaint Stated Complaint: SOA - Additonal information Additional information: Patient is 61-year-old male presenting to the emergency department with nausea and feeling generally weak. Past medical significant for COPD, EtOH abuse, Atrial fibrillation. Was seen here yesterday evening and evaluated after being brought in by EMS with report of drinking 2 to 3 L of vodka. He endorses for being an infrequent drinking but reports unique drinking when he does imbibe. Reports became acutely weak and shaky at home earlier today. There was associated nausea and he states that he is having some chest discomfort. EMS report normal blood sugar in route. Review of Systems Ten Systems: 10 systems reviewed and negative Constitutional: reports: Fatigue Cardiac: reports: Chest pain / pressure GI: reports: Nausea, Vomiting PD PAST MEDICAL HISTORY - Past Medical History Cardiovascular: Atrial fibrillation Respiratory: COPD, Pneumonia, Shortness of breath Neuro: None Endocrine/Autoimmune: None GI: None : None Psych: None Musculoskeletal: Chronic back pain, Other Derm: Other - Past Surgical History Past Surgical History: Yes General: Other - Present Medications Home Medications: Ambulatory Orders Medication Instructions Recorded Confirmed Albuterol Sulfate [Albuterol 2 puffs INH Q6H PRN 07/08/19 07/26/20 Sulfate Hfa] Buspirone HCl 10 mg PO BID 12/12/19 07/26/20 Fluoxetine HCl [Prozac] 20 mg PO DAILY 12/12/19 07/26/20 QUEtiapine [SEROquel] 12.5 mg PO QPM 12/12/19 07/26/20 LORazepam [Ativan] 1 mg PO Q8H PRN #10 tablet 12/13/19 07/26/20 diltiaZEM CD [Cardizem Cd] 240 mg PO DAILY #15 capsule 12/13/19 07/26/20 Gabapentin 300 mg PO DAILY 01/05/20 07/26/20 busPIRone [Buspar] 5 mg PO BID 01/05/20 07/26/20 - Allergies Allergies/Adverse Reactions: Allergies Allergy/AdvReac Type Severity Reaction Status Date / Time cat dander Allergy Watery Verified 07/26/20 09:18 eyes/itching dog dander Allergy Watery Verified 07/26/20 09:18 eyes/itching house dust Allergy Watery Verified 07/26/20 09:18 eyes/itching - Social History Does the pt smoke?: Yes Smoking Status: Current every day smoker Does the pt drink ETOH?: Yes Does the pt have substance abuse?: No - Immunizations Immunizations are current?: Yes - POLST Patient has POLST: No PD ED PE NORMAL - Vitals Vital signs reviewed: Yes (Irregular rhythm, normal rate, hemodynamically stable.) - General General: Alert and oriented X 3 - HEENT HEENT: Atraumatic, PERRL, EOMI, Ears normal, Moist mucous membranes, Pharynx benign, Dentition benign - Neck Neck: Supple, no meningeal sign, No bony TTP, No adenopathy, Thyroid normal, No JVD, No bruit, C-Spine cleared by NEXUS criteria - Cardiac Cardiac: No murmur, No gallop, No rub, Strong equal pulses - Respiratory Respiratory: No respiratory distress, Other (Tachypnea, wheezing in all air weaver. ) - Abdomen Abdomen: Normal bowel sounds, Soft, Other (Obese abdomen) - Male Male : Deferred - Rectal Rectal: Deferred - Derm Derm: Normal color - Extremities Extremities: No deformity, No tenderness to palpate, No edema, No calf tenderness / cord Results - Vitals Vitals: Vital Signs - 24 hr 02/20/22 02/20/22 02/20/22 14:03 14:40 15:00 Temperature 36.3 C L Heart Rate 86 81 83 Respiratory 26 H 10 L 14 Rate Blood Pressure 111/71 106/70 103/66 O2 Saturation 92 86 L 88 L If not protocol 2 4 : Oxygen Flow, liters/minute 02/20/22 02/20/22 02/20/22 15:03 15:30 16:00 Temperature Heart Rate 88 85 84 Respiratory 24 18 16 Rate Blood Pressure 83/60 L 101/63 O2 Saturation 90 L 89 L If not protocol 4 4 : Oxygen Flow, liters/minute 02/20/22 02/20/22 02/20/22 16:30 17:00 17:30 Temperature Heart Rate 77 89 78 Respiratory 16 16 30 H Rate Blood Pressure 89/48 L 91/59 L 99/69 O2 Saturation 88 L 89 L 83 L If not protocol 4 4 4 : Oxygen Flow, liters/minute 02/20/22 02/20/22 02/20/22 18:00 18:14 18:30 Temperature Heart Rate 80 76 76 Respiratory 22 20 27 H Rate Blood Pressure 77/57 L 69/55 L O2 Saturation 88 L 86 L If not protocol 4 5 : Oxygen Flow, liters/minute 02/20/22 02/20/22 02/20/22 18:45 18:50 19:00 Temperature Heart Rate 74 75 76 Respiratory 25 H 22 Rate Blood Pressure 67/52 L 80/54 L 87/60 L O2 Saturation 88 L 91 L If not protocol 5 5 10 : Oxygen Flow, liters/minute 02/20/22 02/20/22 02/20/22 19:30 19:39 19:52 Temperature Heart Rate 75 76 77 Respiratory 22 18 25 H Rate Blood Pressure 85/59 L 100/68 117/57 L O2 Saturation 94 95 94 If not protocol 10 10 10 : Oxygen Flow, liters/minute 02/20/22 02/20/22 02/20/22 19:58 20:14 20:25 Temperature 97.7 C H Heart Rate 83 83 78 Respiratory 25 H 26 H 26 H Rate Blood Pressure 88/58 L 84/62 L 92/66 O2 Saturation 93 94 94 If not protocol 10 10 : Oxygen Flow, liters/minute 02/20/22 02/20/22 02/20/22 20:36 20:53 21:00 Temperature Heart Rate 78 78 80 Respiratory 26 H 26 H 24 Rate Blood Pressure 88/53 L 109/37 L 88/69 L O2 Saturation 93 5 L 93 If not protocol 15 15 15 : Oxygen Flow, liters/minute 02/20/22 02/20/22 02/20/22 21:17 21:30 21:33 Temperature Heart Rate 80 78 77 Respiratory 25 H 25 H 22 Rate Blood Pressure 131/108 H 98/68 90/57 L O2 Saturation 93 94 15 L If not protocol 15 15 : Oxygen Flow, liters/minute 02/20/22 02/20/22 02/20/22 21:59 22:03 22:09 Temperature 36.9 C Heart Rate 73 77 79 Respiratory 24 24 26 H Rate Blood Pressure 109/65 110/63 112/46 L O2 Saturation 95 93 94 If not protocol 15 15 : Oxygen Flow, liters/minute Oxygen O2 Source Oxymask Oxygen Flow Rate 15 - EKG (time done) 1412 Rate: Rate (enter#) (88) Rhythm: NSR [place]: Normal Intervals: Prolonged [place] QRS: Normal Ischemia: Normal ST segments, Non specific changes Computer interpretation: Agree with computer - Labs Labs: Laboratory Tests 02/20/22 02/20/22 02/20/22 14:10 14:10 14:10 WBC 10.2 RBC 5.57 Hgb 17.2 Hct 53.2 H MCV 95.5 H MCH 30.9 MCHC 32.3 RDW 13.8 Plt Count 290 MPV 9.4 Neut # (Auto) 7.5 H Lymph # (Auto) 1.8 [place] # (Auto) 0.8 Eos # (Auto) 0.0 Baso # (Auto) 0.1 Absolute Nucleated RBC 0.00 Nucleated RBC % 0.0 PT 11.7 INR 1.0 VBG pH VBG pCO2 VBG pO2 VBG HCO3 VBG Total CO2 VBG O2 Saturation VBG Base Excess Sodium 140 Potassium 3.7 Chloride 96 L Carbon Dioxide 24 Anion Gap 20.0 H BUN 10 Creatinine 1.4 H Estimated GFR (MDRD) 51 L Glucose 150 H Lactic Acid Calcium 9.0 Magnesium 1.6 L Total Bilirubin 0.9 AST 28 ALT 23 Alkaline Phosphatase 92 Total Creatine Kinase 166 Troponin I High Sens B-Natriuretic Peptide Total Protein 7.4 Albumin 4.2 Globulin 3.2 Albumin/Globulin Ratio 1.3 Lipase 32 Cortisol Urine Color Urine Clarity Urine pH Ur Specific [place] Urine Protein Urine Glucose (UA) Urine Ketones Urine Occult Blood Urine Nitrite Urine Bilirubin Urine Urobilinogen Ur Leukocyte Esterase Ur Microscopic Review Urine Culture Comments Nasal Adenovirus (PCR) Nasal B. parapertussis DNA (PCR) Nasal Coronavir 229E PCR Nasal Coronavir HKU1 PCR Nasal Coronavir NL63 PCR Nasal Coronavir OC43 PCR Nasal Enterovir/Rhinovir PCR Nasal Influenza B PCR Nasal Influenza A PCR Nasal Parainfluen 1 PCR Nasal Parainfluen 2 PCR Nasal Parainfluen 3 PCR Nasal Parainfluen 4 PCR Nasal RSV (PCR) Nasal B.pertussis DNA PCR Nasal C.pneumoniae (PCR) [place] Human Metapneumo PCR Nasal M.pneumoniae (PCR) Nasal SARS-CoV-2 (PCR) Urine Opiates Screen Ur Oxycodone Screen Urine Methadone Screen Ur Propoxyphene Screen Ur Barbiturates Screen Ur Tricyclics Screen Ur Phencyclidine Scrn Ur Amphetamine Screen U Methamphetamines Scrn U Benzodiazepines Scrn Urine Cocaine Screen U Cannabinoids Screen Ethyl Alcohol 12/02/20/22 02/20/22 14:10 14:10 14:10 WBC RBC Hgb Hct MCV MCH MCHC RDW Plt Count MPV Neut # (Auto) Lymph # (Auto) [place] # (Auto) Eos # (Auto) Baso # (Auto) Absolute Nucleated RBC Nucleated RBC % PT INR VBG pH VBG pCO2 VBG pO2 VBG HCO3 VBG Total CO2 VBG O2 Saturation VBG Base Excess Sodium Potassium Chloride Carbon Dioxide Anion Gap BUN Creatinine Estimated GFR (MDRD) Glucose Lactic Acid 6.9 H* Calcium Magnesium Total Bilirubin AST ALT Alkaline Phosphatase Total Creatine Kinase Troponin I High Sens 14.0 B-Natriuretic Peptide 80 Total Protein Albumin Globulin Albumin/Globulin Ratio Lipase Cortisol Urine Color Urine Clarity Urine pH Ur Specific [place] Urine Protein Urine Glucose (UA) Urine Ketones Urine Occult Blood Urine Nitrite Urine Bilirubin Urine Urobilinogen Ur Leukocyte Esterase Ur Microscopic Review Urine Culture Comments Nasal Adenovirus (PCR) Nasal B. parapertussis DNA (PCR) Nasal Coronavir 229E PCR Nasal Coronavir HKU1 PCR Nasal Coronavir NL63 PCR Nasal Coronavir OC43 PCR Nasal Enterovir/Rhinovir PCR Nasal Influenza B PCR Nasal Influenza A PCR Nasal Parainfluen 1 PCR Nasal Parainfluen 2 PCR Nasal Parainfluen 3 PCR Nasal Parainfluen 4 PCR Nasal RSV (PCR) Nasal B.pertussis DNA PCR Nasal C.pneumoniae (PCR) [place] Human Metapneumo PCR Nasal M.pneumoniae (PCR) Nasal SARS-CoV-2 (PCR) Urine Opiates Screen Ur Oxycodone Screen Urine Methadone Screen Ur Propoxyphene Screen Ur Barbiturates Screen Ur Tricyclics Screen Ur Phencyclidine Scrn Ur Amphetamine Screen U Methamphetamines Scrn U Benzodiazepines Scrn Urine Cocaine Screen U Cannabinoids Screen Ethyl Alcohol 02/20/22 02/20/22 02/20/22 14:10 15:15 15:27 WBC RBC Hgb Hct MCV MCH MCHC RDW Plt Count MPV Neut # (Auto) Lymph # (Auto) [place] # (Auto) Eos # (Auto) Baso # (Auto) Absolute Nucleated RBC Nucleated RBC % PT INR VBG pH 7.382 VBG pCO2 48.8 VBG pO2 46.8 VBG HCO3 28.4 H VBG Total CO2 29.8 H VBG O2 Saturation 85.1 H VBG Base Excess 2.2 H Sodium Potassium Chloride Carbon Dioxide Anion Gap BUN Creatinine Estimated GFR (MDRD) Glucose Lactic Acid Calcium Magnesium Total Bilirubin AST ALT Alkaline Phosphatase Total Creatine Kinase Troponin I High Sens B-Natriuretic Peptide Total Protein Albumin Globulin Albumin/Globulin Ratio Lipase Cortisol Urine Color Urine Clarity Urine pH Ur Specific [place] Urine Protein Urine Glucose (UA) Urine Ketones Urine Occult Blood Urine Nitrite Urine Bilirubin Urine Urobilinogen Ur Leukocyte Esterase Ur Microscopic Review Urine Culture Comments Nasal Adenovirus (PCR) NOT DETECTED Nasal B. parapertussis DNA (PCR) NOT DETECTED Nasal Coronavir 229E PCR NOT DETECTED Nasal Coronavir HKU1 PCR NOT DETECTED Nasal Coronavir NL63 PCR NOT DETECTED Nasal Coronavir OC43 PCR NOT DETECTED Nasal Enterovir/Rhinovir PCR NOT DETECTED Nasal Influenza B PCR NOT DETECTED Nasal Influenza A PCR NOT DETECTED Nasal Parainfluen 1 PCR NOT DETECTED Nasal Parainfluen 2 PCR NOT DETECTED Nasal Parainfluen 3 PCR NOT DETECTED Nasal Parainfluen 4 PCR NOT DETECTED Nasal RSV (PCR) NOT DETECTED Nasal B.pertussis DNA PCR NOT DETECTED Nasal C.pneumoniae (PCR) NOT DETECTED [place] Human Metapneumo PCR NOT DETECTED Nasal M.pneumoniae (PCR) NOT DETECTED Nasal SARS-CoV-2 (PCR) NOT DETECTED Urine Opiates Screen Ur Oxycodone Screen Urine Methadone Screen Ur Propoxyphene Screen Ur Barbiturates Screen Ur Tricyclics Screen Ur Phencyclidine Scrn Ur Amphetamine Screen U Methamphetamines Scrn U Benzodiazepines Scrn Urine Cocaine Screen U Cannabinoids Screen Ethyl Alcohol 12.9 02/20/22 02/20/22 02/20/22 17:45 18:40 20:32 WBC 18.0 H RBC 5.33 Hgb 16.3 Hct 52.7 H MCV 98.9 H MCH 30.6 MCHC 30.9 L RDW 14.2 Plt Count 204 MPV 9.5 Neut # (Auto) 16.0 H Lymph # (Auto) 1.0 L [place] # (Auto) 0.7 Eos # (Auto) 0.0 Baso # (Auto) 0.1 Absolute Nucleated RBC 0.04 Nucleated RBC % 0.2 PT INR VBG pH VBG pCO2 VBG pO2 VBG HCO3 VBG Total CO2 VBG O2 Saturation VBG Base Excess Sodium Potassium Chloride Carbon Dioxide Anion Gap BUN Creatinine Estimated GFR (MDRD) Glucose Lactic Acid > 10.0 H* Calcium Magnesium Total Bilirubin AST ALT Alkaline Phosphatase Total Creatine Kinase Troponin I High Sens B-Natriuretic Peptide Total Protein Albumin Globulin Albumin/Globulin Ratio Lipase Cortisol Urine Color YELLOW Urine Clarity CLEAR Urine pH 6.0 Ur Specific [place] >=1.030 H Urine Protein NEGATIVE Urine Glucose (UA) NEGATIVE Urine Ketones TRACE Urine Occult Blood NEGATIVE Urine Nitrite NEGATIVE Urine Bilirubin NEGATIVE Urine Urobilinogen 0.2 (NORMAL) Ur Leukocyte Esterase NEGATIVE Ur Microscopic Review NOT INDICATED Urine Culture Comments NOT INDICATED Nasal Adenovirus (PCR) Nasal B. parapertussis DNA (PCR) Nasal Coronavir 229E PCR Nasal Coronavir HKU1 PCR Nasal Coronavir NL63 PCR Nasal Coronavir OC43 PCR Nasal Enterovir/Rhinovir PCR Nasal Influenza B PCR Nasal Influenza A PCR Nasal Parainfluen 1 PCR Nasal Parainfluen 2 PCR Nasal Parainfluen 3 PCR Nasal Parainfluen 4 PCR Nasal RSV (PCR) Nasal B.pertussis DNA PCR Nasal C.pneumoniae (PCR) [place] Human Metapneumo PCR Nasal M.pneumoniae (PCR) Nasal SARS-CoV-2 (PCR) Urine Opiates Screen NEGATIVE Ur Oxycodone Screen NEGATIVE Urine Methadone Screen NEGATIVE Ur Propoxyphene Screen NEGATIVE Ur Barbiturates Screen NEGATIVE Ur Tricyclics Screen NEGATIVE Ur Phencyclidine Scrn NEGATIVE Ur Amphetamine Screen NEGATIVE U Methamphetamines Scrn NEGATIVE U Benzodiazepines Scrn NEGATIVE Urine Cocaine Screen NEGATIVE U Cannabinoids Screen NEGATIVE Ethyl Alcohol 02/20/22 02/20/22 20:32 20:32 WBC RBC Hgb Hct MCV MCH MCHC RDW Plt Count MPV Neut # (Auto) Lymph # (Auto) [place] # (Auto) Eos # (Auto) Baso # (Auto) Absolute Nucleated RBC Nucleated RBC % PT INR VBG pH VBG pCO2 VBG pO2 VBG HCO3 VBG Total CO2 VBG O2 Saturation VBG Base Excess Sodium 137 Potassium 4.1 Chloride 95 L Carbon Dioxide 16 L Anion Gap 26.0 H BUN 13 Creatinine 2.3 H Estimated GFR (MDRD) 29 L Glucose 278 H Lactic Acid Calcium 8.0 L Magnesium Total Bilirubin AST ALT Alkaline Phosphatase Total Creatine Kinase Troponin I High Sens B-Natriuretic Peptide Total Protein Albumin Globulin Albumin/Globulin Ratio Lipase Cortisol 74.9 Urine Color Urine Clarity Urine pH Ur Specific [place] Urine Protein Urine Glucose (UA) Urine Ketones Urine Occult Blood Urine Nitrite Urine Bilirubin Urine Urobilinogen Ur Leukocyte Esterase Ur Microscopic Review Urine Culture Comments Nasal Adenovirus (PCR) Nasal B. parapertussis DNA (PCR) Nasal Coronavir 229E PCR Nasal Coronavir HKU1 PCR Nasal Coronavir NL63 PCR Nasal Coronavir OC43 PCR Nasal Enterovir/Rhinovir PCR Nasal Influenza B PCR Nasal Influenza A PCR Nasal Parainfluen 1 PCR Nasal Parainfluen 2 PCR Nasal Parainfluen 3 PCR Nasal Parainfluen 4 PCR Nasal RSV (PCR) Nasal B.pertussis DNA PCR Nasal C.pneumoniae (PCR) [place] Human Metapneumo PCR Nasal M.pneumoniae (PCR) Nasal SARS-CoV-2 (PCR) Urine Opiates Screen Ur Oxycodone Screen Urine Methadone Screen Ur Propoxyphene Screen Ur Barbiturates Screen Ur Tricyclics Screen Ur Phencyclidine Scrn Ur Amphetamine Screen U Methamphetamines Scrn U Benzodiazepines Scrn Urine Cocaine Screen U Cannabinoids Screen Ethyl Alcohol Procedures - Central Line - Major Central Line Preparation: Consent Obtained, Ultrasound used, Sterile prep and drape Central line location: Right IJ Central line type: Triple lumen Central line aftercare: Chlorhexidine disc placed, Secured, Placement confirmed, No pneumothorax, No complications, Pt tolerated well PD Medical Decision Making - ED course Complexity details: reviewed old records, reviewed results, re-evaluated patient, considered differential ED course: Patient is a 59-year-old male with medical significant for COPD, atrial fibrillation and alcohol abuse who presented to emergency room brought in by EMS for chest pain, shortness of breath, nausea vomiting. Seen at the facility yesterday evening for severe alcohol intoxication. At that time notably had alcohol level greater than 300. Afebrile and hemodynamically stable on arrival EMS reported normal blood sugar as was a brief run of the identified is atrial fibrillation with rapid ventricular response. Patient had nausea and vomiting on arrival and endorse for some mild chest abdominal pain as well as feeling generally weak and unwell. He reported that his abdominal discomfort abdomen almost immediately upon arrival to the emergency department. On physical exam he had tight, coarse wheezing breath sounds in all lung weaver and I ordered for breathing treatment and methylprednisolone given his history of COPD. He is on the baseline oxygen demand but he did have some brief episodes of desaturation into the low to mid 80s and was placed on 2 L nasal cannula. EKG demonstrated sinus rhythm without significant for baseline or indications of acute cardiac STEMI or dysrhythmia. Patient's troponin and BNP were both negative. His CBC did not show a significant leukocytosis however his comprehensive metabolic panel did show developing acute kidney injury with creatinine 1.4. Notably his creatinine was 1.0 during his previous ER evaluation approximately 12 hours ago. He did however have a significant lactic acidosis with lactic acid greater than 6. IV hydration was ordered. Initial chest x-ray was nonacute. Patient continued to have intermittent episodes of cramping abdominal pain with associated nausea vomiting. Was given multiple doses of antiemetic. CTA chest CT abdomen pelvis was obtained and this did not have acute findings as outlined in the radiologist report. Patient began to become hypotensive despite adequate fluid resuscitation and had increasing abdominal pain with some tenderness without guarding, rebound or rigidity. Repeat lactic acid was now increased and greater than 10. Given the persistent hypotension I did order for a dose of Zosyn and peripheral vasopressors were started. Right internal jugular central line was placed. Patient's blood pressure has responded well to norepinephrine. Does have the underlying etiology of the shock is uncertain. He does demonstrate some tremulousness in his upper extremities however he denies being a daily drinker to me stating only that he has episodes of binge drinking that occur approximately monthly. Moreover hypotension would be an atypical finding for alcohol withdrawal and patient did not demonstrate tachycardia, confusion, delirium that would be more typical in the setting. Nevertheless no reasonable source of infection was identified on comprehensive imaging, labs and urine analysis. Patient initially did not have significant SIRS criteria that would indicate sepsis and his EKG, troponin and BNP were all within normal limits are generally benign. Although clinically his presentation is atypical his findings of developing hypotension, abdominal pain and an elevated lactic acid are concerning for ischemic bowel although no findings consistent with ischemic bowel were noted on his previous abdomen and pelvis CT scan At this time I will be signing the patient out to the oncoming physician, please see documentation for further detail. - Critical Care Time(min): 61 Time Includes: Direct patient care, Review records, Reassess patient, Document care, See progress note Data interpretation: Labs, Pulse ox, CXR Procedures excluded from critical care time: Central IV
[2022-02-20] MEDS ORDERED: ONDANSETRON 4 MG/2 ML VIAL IVP STA (14:01)
[2022-02-20] MEDS ORDERED: KETOROLAC 30 MG/ML VIAL IVP STA (14:01)
[2022-02-20] MEDS ORDERED: SODIUM CHLORIDE 0.9% 1,000 ML IV STA ×3 (14:01→18:18)
[2022-02-20 14:16] LABS: BASOPHILS # (AUTO) 0.1 10^3/uL (0.0-0.1); BASOPHILS % (AUTO) 1.2 %; EOSINOPHILS % (AUTO) 0.3 %; HCT - HEMATOCRIT 53.2 % (42.0-52.0); HGB - HEMOGLOBIN 17.2 g/dL (14.0-18.0); LYMPHOCYTES # (AUTO) 1.8 10^3/uL (1.5-3.5); LYMPHOCYTES % (AUTO) 17.3 %; MEAN CORPUSCULAR HEMOGLOBIN 30.9 pg (27.0-31.0); MEAN CORPUSCULAR HGB CONC 32.3 g/dL (32.0-36.0); MEAN CORPUSCULAR VOLUME 95.5 fL (80.0-94.0); MEAN PLATELET VOLUME 9.4 fL (7.4-11.4); MONOCYTES # (AUTO) 0.8 10^3/uL (0.0-1.0); MONOCYTES % (AUTO) 8.2 %; NEUTROPHILS # (AUTO) 7.5 10^3/uL (1.5-6.6); NEUTROPHILS % (AUTO) 72.7 %; PLT - PLATELET COUNT 290 10^3/uL (130-450); RED BLOOD COUNT 5.57 10^6/uL (4.70-6.10); RED CELL DISTRIBUTION WIDTH 13.8 % (12.0-15.0); WHITE BLOOD COUNT 10.2 x10^3/uL (4.8-10.8)
[2022-02-20 14:28] LABS: PT - PROTHROMBIN TIME 11.7 secs (9.9-12.6)
--- NOTE | 2022-02-20 14:32 | XRAY Report ---
PROCEDURE: Chest 1 View X-Ray INDICATIONS: chest pain TECHNIQUE: One view of the chest was acquired. COMPARISON: 02/20/2022 at 12:15 AM. FINDINGS: Surgical changes and devices: None. Lungs and pleura: No pleural effusions or pneumothorax. Lungs are clear. Mediastinum: Mediastinal contours appear normal. Heart size is normal. Bones and chest wall: No suspicious bony lesions. Overlying soft tissues appear unremarkable. IMPRESSION: No evidence acute pulmonary process. Reviewed by: Presley Tubbs MD on 02/20/2022 2:31 PM PST Approved by: Presley Tubbs MD on 02/20/2022 2:31 PM PST Station ID: [id number]
[2022-02-20] MEDS ORDERED: IPRATROPIUM/ALBUTEROL 3 ML NEB INH STA ×2 (14:40→17:54)
[2022-02-20 14:41] LABS: ALBUMIN 4.2 g/dL (3.2-5.5); ALBUMIN/GLOBULIN RATIO 1.3 (1.0-2.2); BILIRUBIN,TOTAL 0.9 mg/dL (0.2-1.0); CREATININE 1.4 mg/dL (0.6-1.2); MAGNESIUM 1.6 mg/dL (1.7-2.8); TOTAL PROTEIN 7.4 g/dL (6.7-8.2)
[2022-02-20] MEDS ORDERED: methylPREDNISolone SUCCINATE 125 MG/2 ML VIAL IVP STA (14:41)
[2022-02-20] MEDS ORDERED: MAGNESIUM SULFATE 2 GRAM 2 GM/50 ML BAG IV ONE (14:48)
[2022-02-20 14:49] LABS: POTASSIUM 3.7 mmol/L (3.5-5.0)
[2022-02-20 15:31] LABS: VBG PCO2 48.8 mmHg (41-51); VBG PH 7.382 (7.31-7.41); VBG PO2 46.8 mmHg (25-47)
[2022-02-20] MEDS ORDERED: GI COCKTAIL 120 ML BOTTLE PO PRN (15:31)
[2022-02-20 15:32] LABS: VBG BASE EXCESS 2.2 mmol/L (-2 - +2); VBG HCO3 28.4 mmol/L (23-28); VBG OXYGEN SATURATION 85.1 % (60-80); VBG TOTAL CO2 29.8 mmol/L (24-29)
[2022-02-20] MEDS ORDERED: iohexoL-300 100 ML VIAL ONE (15:39)
[2022-02-20] MEDS ORDERED: METOCLOPRAMIDE 10 MG/2 ML VIAL IVP STA (15:42)
[2022-02-20] MEDS ORDERED: iohexoL-300 100 ML VIAL IVP ONE (16:25)
--- NOTE | 2022-02-20 17:15 | CT Report ---
PROCEDURE: ABDOMEN/PELVIS W INDICATIONS: Chest/abdominal pain CONTRAST: 100mL [id number] TECHNIQUE: After the administration of intravenous contrast, 5 mm thick sections acquired from the diaphragms to the symphysis. 5 mm thick coronal and sagittal reformats were acquired. For radiation dose reducti on, the following was used: automated exposure control, adjustment of mA and/or kV according to nereida ent size. COMPARISON: Multiphase CT of the abdomen dated 10/25/2020, CTA chest from today. FINDINGS: Image quality: Excellent. ABDOMEN: Lung bases: Lung bases are clear. Heart size is normal. Solid organs: Liver and spleen are normal in size and enhancement. Moderate diffuse hepatic steatosi s. Gallbladder is unremarkable without calcified gallstones. Biliary system is non dilated. Pancre as enhances normally. No adrenal nodules. Remote partial right nephrectomy with removal of a Bosniak 4 cyst. Postsurgical inflammatory change in the adjacent fat. No suspicious renal mass. Left kidney is unremarkable. No hydronephrosis on either side. Peritoneum and bowel: Bowel loops demonstrate normal wall thickness and caliber. Scattered divertic ulosis without evidence of diverticulitis. No free fluid or air. Nodes and vessels: No retroperitoneal or mesenteric adenopathy by size criteria. Aorta and inferior vena cava are normal in size. Miscellaneous: No ventral hernias. PELVIS: Genitourinary: Bladder wall thickness is normal. Miscellaneous: Small fat-containing right inguinal hernia. No inguinal adenopathy. Bones: No suspicious bony lesions. No vertebral body compression fractures. IMPRESSION: 1. Mild to moderate diffuse hepatic steatosis. 2. Interval partial right nephrectomy. 3. No evidence of acute abdominal process. Reviewed by: Presley Tubbs MD on 02/20/2022 5:13 PM PST Approved by: Presley Tubbs MD on 02/20/2022 5:13 PM PST Station ID: [id number]
--- NOTE | 2022-02-20 17:22 | CT Report ---
PROCEDURE: ANGIO CHEST W/WO INDICATIONS: Rule out PE CONTRAST: 100mL [id number] TECHNIQUE: After the administration of intravenous contrast, 2 mm axial images were acquired from the pulmonary apices to the posterior costophrenic angles during the arterial phase. In addition, 1 mm lung kernel and 5 mm soft tissue kernel reconstructions were performed. 3-dimensional coronal oblique maximum int ensity projection (MIP) reformats, 8 mm axial MIP, and 5 mm coronal and sagittal MPR reformats were t hen performed through the thorax. For radiation dose reduction, the following was used: automated exp osure control, adjustment of mA and/or kV according to patient size. COMPARISON: Chest with contrast 01/26/2020, CT abdomen and pelvis from today. FINDINGS: Image quality: Excellent. Pulmonary arteries: Pulmonary arteries are normal in size, and demonstrate no intraluminal filling d efects to suggest central pulmonary embolism. Lungs and pleura: Mild chronic scarring in the inferior lingula of the left lung. Mild patchy bibasil ar atelectasis. No airspace consolidation. No pleural effusions or pneumothorax. Central and periphe ral airways are patent. Mediastinum: Heart size is normal, without pericardial effusion. No mediastinal or hilar adenopathy . Thoracic aorta is normal in caliber and enhancement. Esophagus is normal in caliber, without hiat al hernia. Bones and chest wall: No suspicious bony lesions. Ribs and thoracic spine appear intact throughout. No axillary or supraclavicular adenopathy. Heterogeneous thyroid. Abdomen: Mild to moderate diffuse hepatic steatosis. IMPRESSION: 1. No evidence acute pulmonary emboli. 2. Mild patchy bibasilar atelectasis, otherwise no significant acute findings. 3. Mild to moderate diffuse hepatic steatosis. CLINICAL RECOMMENDATION STATEMENTS: In patients <35 years with an ITN detected on CT, MRI, or extrathyroidal ultrasound, the Committee re commends further evaluation with dedicated thyroid ultrasound if the nodule is "e1 cm and has no susp icious imaging features, and if the patient has normal life expectancy. In patients "e35 years with an ITN detected on CT, MRI, or extrathyroidal ultrasound, the Committee r ecommends further evaluation with dedicated thyroid ultrasound if the nodule is "e1.5 cm and has no s uspicious imaging features, and if the patient has normal life expectancy. (ACR, 2014) Reviewed by: Presley Tubbs MD on 02/20/2022 5:21 PM PST Approved by: Presley Tubbs MD on 02/20/2022 5:21 PM PST Station ID: [id number]
[2022-02-20 17:49] LABS: MUDS CUTOFF CONCENTRATIONS CUTOFF CONC BELOW:
[2022-02-20 18:24] LABS: BILIRUBIN,URINE NEGATIVE (NEGATIVE); CLARITY,URINE CLEAR (CLEAR); GLUCOSE, URINE (UA) NEGATIVE (NEGATIVE); KETONES,URINE (UA) TRACE mg/dL (NEGATIVE); LEUKOCYTE ESTERASE, URINE NEGATIVE (NEGATIVE); NITRITE,URINE NEGATIVE (NEGATIVE); OCCULT BLOOD,URINE NEGATIVE (NEGATIVE); PROTEIN,URINE NEGATIVE (NEGATIVE); UROBILINOGEN,URINE 0.2 (NORMAL) E.U./dL (NORMAL)
[2022-02-20 18:31] LABS: THC CANNABINOID SCREEN, URINE NEGATIVE (NEGATIVE)
[2022-02-20 18:32] LABS: AMPHETAMINE SCREEN,URINE NEGATIVE (NEGATIVE); BARBITURATE SCREEN,UR NEGATIVE (NEGATIVE); BENZODIAZEPINES SCREEN, URINE NEGATIVE (NEGATIVE); COCAINE SCREEN URINE NEGATIVE (NEGATIVE); METHADONE SCREEN, URINE NEGATIVE (NEGATIVE); METHAMPHETAMINES SCREEN, URINE NEGATIVE (NEGATIVE); OPIATE SCREEN, URINE NEGATIVE (NEGATIVE); OXYCODONE SCREEN, URINE NEGATIVE (NEGATIVE); PROPOXYPHENE SCREEN, URINE NEGATIVE (NEGATIVE); TRICYCLIC ANTIDEPRESSANT,URINE NEGATIVE (NEGATIVE)
[2022-02-20] MEDS ORDERED: PIPERACILLIN/TAZOBACTAM 4.5 GM in SODIUM CHLORIDE 0.9% MINIBAG 100 ML IV STA (18:38)
[2022-02-20] MEDS ORDERED: NOREPINEPHRINE/D5W 8 MG/250 ML BAG IV STA (19:03)
[2022-02-20 19:06] LABS: B. PARAPERTUSSIS- RESP PCR PAN NOT DETECTED; B. PERTUSSIS- RESP PCR PANEL NOT DETECTED; C. PNEUMONIAE- RESP PCR PANEL NOT DETECTED; CORONAVIRUS 229E-RESP PCR NOT DETECTED; CORONAVIRUS HKU1-RESP PCR NOT DETECTED; CORONAVIRUS NL63-RESP PCR NOT DETECTED; CORONAVIRUS OC43-RESP PCR NOT DETECTED; HUMAN METAPNEUMOVIRUS NOT DETECTED; INFLUENZA A- RESP PCR PANEL NOT DETECTED; INFLUENZA B - RESP PCR PANEL NOT DETECTED; M. PNEUMONIAE- RESP PCR PANEL NOT DETECTED; PARAINFLUENZA VIRUS 1 NOT DETECTED; PARAINFLUENZA VIRUS 2 NOT DETECTED; PARAINFLUENZA VIRUS 3 NOT DETECTED; PARAINFLUENZA VIRUS 4 NOT DETECTED; RHINOVIRUS/ENTEROVIRUS NOT DETECTED; RSV- RESP PCR PANEL NOT DETECTED; SARS-CoV-2 -RESP PCR PANEL NOT DETECTED
--- NOTE | 2022-02-20 20:10 | ED Physician Documentation ---
ED Addendum - Addendum Addendum: 02/20/22 20:[address] Mtz at 8 PM, briefly 61-year-old gentleman with COPD and alcoholism seen overnight for alcohol intoxication and discharged and then developed shortness of breath and abdominal pain. On arrival here his labs were relatively unremarkable except for a significant lactic acidosis of greater than [address] angiography of the chest and abdomen was unremarkable. CT of the chest and angiography of the abdomen was negative with the exception of hepatic steat osis and some atelectasis. No evidence of ischemic bowel, PE, pericardial effusion. EKG, troponin, BNP, CBC all relatively unremarkable. During his ED stay he complained of intermittent abdominal pain and started to become hypotensive down to mid 60s over 50 and my partner placed a central line and started pressors as well as antibiotics. At this time given the ongoing abdominal pain, hypotension and shock and worsening lactic acidosis now more recently greater than 10 I did call our on-call surgeon who will come see him, Dr. Brown. 02/20/22 20:43 Dr. Brown saw the patient, does not feel that he currently is likely to have an acute surgical abdominal emergency. After further consideration I will check a cortisol level, add blood cultures and repeat CBC and BMP. Will broaden out h is antibiotic coverage. Also the patient is very shaky and looks to be in alcohol withdrawal and will start some benzodiazepines. Critical care time 45 minutes, mostly in direct patient care, management of multiple vasoactive medications, antibiotics, and consultations. Of note currently there is no ICU bed in the hospital and the patient is boarding. 02/20/22 20:49 Single view chest x-ray for line placement shows appropriate placement of the right IJ CVC in the superior vena cava, patchy infiltrates in the lung weaver and mild pulmonary vascular congestion. Interpreted independently and final report received. I did speak with his brother in law with the patient's consent and updated him on current situation and critical illness. 02/20/22 21:18 Repeat labs done, his white count had been 10, now 18,000, his creatinine went from 1.4-2.3, and that was only in 6 hours. He has developed more of an acidosis with a bicarb of 16. He is mentating well but is looking a little mottled. We discussed CODE STATUS, he would like to be full code and have everything done but if he were to decompensate and things were looking futile would like us to stop. He would like his body donated to medical research. 02/20/22 21:47 Brief bedside echocardiography done, limited by body habitus but looking like he has a severe cardiomyopathy, will add dobutamine. Spoke with [facility] transfer center at this time, they are not immediately able to take him in transfer due to bed status/capacity but will consider with their medical device. I had ordered IV hydrocortisone, but now his cortisol level has come back and it is appropriately elevated I believe. Care to Dr. soco Crockett at 10p shift chg. Diagnosis: 1. Undifferentiated shock with vasopressor requirement 2. Suspected cardiogenic shock 3. Possible septic shock 4. COPD exacerbation 5. Abdominal pain Condition: Critical 02/20/22 21:57
[2022-02-20] MEDS ORDERED: LORazepam 2 MG/ML VIAL IVP STA (20:27)
--- NOTE | 2022-02-20 20:32 | XRAY Report ---
PROCEDURE: Chest for Line Placement INDICATIONS: CVC TECHNIQUE: One view of the chest was acquired. COMPARISON: Earlier on the same day. FINDINGS: Surgical changes and devices: Right internal jugular central venous catheter tip is in SVC. Lungs and pleura: No pleural effusions or pneumothorax. Ill-defined patchy airspace opacities are se en scattered in bilateral lung weaver. Mediastinum: Mediastinal contours appear normal. Heart size is enlarged. Bones and chest wall: No suspicious bony lesions. Overlying soft tissues appear unremarkable. IMPRESSION: Right internal jugular central venous catheter tip is in SVC. Patchy infiltrate/atelectasis in bilate ral lung weaver. Mild pulmonary vascular congestion. No gross pneumothorax. No significant pleural ef fusion. Reviewed by: Steven Espinoza MD on 02/20/2022 8:31 PM PST Approved by: Steven Espinoza MD on 02/20/2022 8:31 PM PST Station ID: [id number]
[2022-02-20 20:42] LABS: BASOPHILS # (AUTO) 0.1 10^3/uL (0.0-0.1); BASOPHILS % (AUTO) 0.7 %; EOSINOPHILS % (AUTO) 0.1 %; HCT - HEMATOCRIT 52.7 % (42.0-52.0); HGB - HEMOGLOBIN 16.3 g/dL (14.0-18.0); LYMPHOCYTES % (AUTO) 5.7 %; MEAN CORPUSCULAR HEMOGLOBIN 30.6 pg (27.0-31.0); MEAN CORPUSCULAR HGB CONC 30.9 g/dL (32.0-36.0); MEAN CORPUSCULAR VOLUME 98.9 fL (80.0-94.0); MEAN PLATELET VOLUME 9.5 fL (7.4-11.4); MONOCYTES # (AUTO) 0.7 10^3/uL (0.0-1.0); NEUTROPHILS % (AUTO) 88.7 %; NRBC ABSOLUTE COUNT (AUTO) 0.04 x10^3/uL; NUCLEATED RED BLOOD CELLS AUTO 0.2 /100WBC; PLT - PLATELET COUNT 204 10^3/uL (130-450); RED BLOOD COUNT 5.33 10^6/uL (4.70-6.10); RED CELL DISTRIBUTION WIDTH 14.2 % (12.0-15.0)
[2022-02-20] MEDS ORDERED: CEFEPIME 2 GM in SODIUM CHLORIDE 0.9% MINIBAG 100 ML IV STA (20:44)
[2022-02-20] MEDS ORDERED: metroNIDAZOLE 500 MG/100 ML 500 MG/100 ML BAG IV STA (20:44)
[2022-02-20] MEDS ORDERED: VANCOMYCIN INJ 1.25 GM in SODIUM CHLORIDE 0.9% 250 ML IV STA (20:44)
[2022-02-20] MEDS ORDERED: ONDANSETRON 4 MG/2 ML VIAL IVP PRN (20:45)
--- NOTE | 2022-02-20 20:50 | CONSULTATION NOTE ---
Surgery Consult - Home Meds/Allergies Home Medications: Patient History Medication Instructions Recorded Confirmed Albuterol Sulfate [Albuterol 2 puffs INH Q6H PRN 07/08/19 07/26/20 Sulfate Hfa] Buspirone HCl 10 mg PO BID 12/12/19 07/26/20 Fluoxetine HCl [Prozac] 20 mg PO DAILY 12/12/19 07/26/20 QUEtiapine [SEROquel] 12.5 mg PO QPM 12/12/19 07/26/20 Gabapentin 300 mg PO DAILY 01/05/20 07/26/20 busPIRone [Buspar] 5 mg PO BID 01/05/20 07/26/20 Allergies/Adverse Reactions: Allergies Allergy/AdvReac Type Severity Reaction Status Date / Time cat dander Allergy Watery Verified 07/26/20 09:18 eyes/itching dog dander Allergy Watery Verified 07/26/20 09:18 eyes/itching house dust Allergy Watery Verified 07/26/20 09:18 eyes/itching - Vital Signs Vital Signs: Last Vital Signs Temp 207.9 F H 02/20/22 20:25 Pulse 78 02/20/22 20:36 Resp 26 H 02/20/22 20:36 BP 88/53 L 02/20/22 20:36 Pulse Ox 93 02/20/22 20:36 O2 Flow Rate 15 02/20/22 20:36 Intake & Output: Intake & Output 02/17/22 02/18/22 02/19/22 02/20/22 23:59 23:59 23:59 23:59 Intake Total 3177.00 Balance 3177.00 - Lab Results Result Diagrams: 02/20/22 20:32 02/20/22 14:10 - Consultation Note Consultation Note: General Surgery Consultation Note Assessment: 1) Hypotension, intermittent abdominal pain, history of acute alcohol intoxication less than 24 hours ago - I do not believe he has ischemic bowel or other intra-abdominal catastrophe that would require immediate surgical intervention at this time. He does not have typical pain out of proportion to his examination, his CT has no evidence of bowel ischemia, he is not tachycardic, and he has no atrial fibrillation. 2) Chronic alcohol abuse 3) Possible withdrawal symptoms 4) COPD Recommendation: 1) Continue to support blood pressure with IV fluids and vasopressors as needed. As his Hct is >50, he may be dehydrated from his alcohol intake. 2) Supplemental oxygen 3) Blood cultures should be obtained 4) Stat cortisol level or empiric dose of Solucortef may be prudent 5) Initiate alcohol withdrawal protocol 6) Diagnostic laparoscopy will be considered if his condition worsens and an intra-abdominal source is suspected but this strategy presents logistic problems in that there are no in-patient ICU or [facility] beds available to offer post-op recovery. We may have to utilize the ED for this purpose if surgical intervention is deemed necessary. <><><><><><><><><><> Reason for Consultation Hypotension, abdominal pain Chief Complaint Weakness; Nausea HPI Alber is a 61 year old male with chronic alcoholism. he drinks several bottles of vodka a day and was managed in our ED yesterday and until 0300 this morning for acute alcohol intoxication. He left AMA at 0330 today. He returned to the ED at 1300 with weakness, nausea, and the shakes. The ED note at that time documented a normal abdominal examination and no complaint of abdominal pain. Later in the day he became hypotensive and developed cramping abdominal pain. He underwent a CT scan of the chest, abdomen and pelvis and there was no evidence of an acute intra-thoracic process or intra-abdominal issue, specifically, no free air, no dilated large or small bowel, no bowel wall thickening, no pneumatosis coli or portal venous air, no free fluid, and no abscess. Because of his abdominal pain and hypotension, I was asked to evaluate the patient. Alber is awake and responsive. He answers questions appropriately. He is having intermittent cramping abdominal discomfort that is non-radiating and not associated with nausea or vomiting. His last BM was yesterday. Past Medical History ETOH use and abuse COPD Obesity Chronic back pain Past Surgical History Laparoscopic right kidney mass excision several weeks ago Family History Unknown Social History ETOH use Current Medications See list Allergies Seasonal/Pet dander ROS Pertinent positives Chest pain, weakness, Mild SOB; Shakes; Cramping abdominal pain All other reviewed systems negative Physical Examination Vital Signs: See above BMI: 39 GENERAL APPEARANCE: Normal development, obesity PSYCHIATRIC: AAO; Mild abdominal discomfort EYES: Pupils equal, round and reactive to light, sclera anicteric EARS, NOSE, MOUTH, THROAT: Hearing normal, Oral mucous membranes moist and without lesions; NECK: No crepitus, lymphadenopathy, or thyromegaly LUNGS: Clear to auscultation without wheezing; No use of accessory muscles to breathe CARDIOVASCULAR: Heart-NSR without murmurs; Palpable carotid arteries - no bruits; Femoral pulses palpable; No peripheral edema ABD: Soft, distended; no masses; mild tenderness all quadrants; No peritoneal signs; Healed right laparoscopic surgical scars without evidence of port site herniation; Few BS LYMPHATIC: Neck, Axillae, Groin No palpable adenopathy EXTREMITIES: No clubbing, cyanosis, infections SKIN: Anicteric; No rashes, lesions, Ulcerations Labs See above Imaging CXR, CT Chest/Abdomen/Pelvis with CT angio of chest - normal All images were personally reviewed by me for this encounter. Gaston Brown MD General Surgery
[2022-02-20] MEDS ORDERED: VANCOMYCIN 1 GM VIAL ONE ×2 (21:03→21:24)
[2022-02-20 21:08] LABS: CREATININE 2.3 mg/dL (0.6-1.2); POTASSIUM 4.1 mmol/L (3.5-5.0)
[2022-02-20] MEDS: metroNIDAZOLE 500 MG/100 ML 500 MG/100 ML BAG IV SCH (21:10)
[2022-02-20] MEDS ORDERED: VANCOMYCIN INJ 2.5 GM in SODIUM CHLORIDE 0.9% 500 ML IV STA (21:12)
[2022-02-20] MEDS ORDERED: LACTATED RINGERS 1,000 ML IV STA (21:18)
[2022-02-20] MEDS ORDERED: CALCIUM CHLORIDE ABBOJECT 1000MG/10 ML SYRINGE IVP STA (21:36)
[2022-02-20] MEDS ORDERED: HYDROCORTISONE SUCCINATE 100 MG/2 ML VIAL IVP STA (21:36)
[2022-02-20] MEDS ORDERED: DOBUTamine 500 MG/250 ML 500 MG/250 ML BAG IV STA (21:45)
[2022-02-20] MEDS ORDERED: CEFEPIME 1 GM in SODIUM CHLORIDE 0.9% MINIBAG 100 ML IV SCH (22:00)
[2022-02-20] MEDS ORDERED: HYDROCORTISONE SUCCINATE 100 MG/2 ML VIAL IVP SCH (22:00)
[2022-02-21 00:10] LABS: BASOPHILS # (AUTO) 0.1 10^3/uL (0.0-0.1); BASOPHILS % (AUTO) 0.2 %; HCT - HEMATOCRIT 50.4 % (42.0-52.0); HGB - HEMOGLOBIN 15.5 g/dL (14.0-18.0); LYMPHOCYTES # (AUTO) 0.7 10^3/uL (1.5-3.5); LYMPHOCYTES % (AUTO) 3.5 %; MEAN CORPUSCULAR HEMOGLOBIN 30.9 pg (27.0-31.0); MEAN CORPUSCULAR HGB CONC 30.8 g/dL (32.0-36.0); MEAN CORPUSCULAR VOLUME 100.4 fL (80.0-94.0); MEAN PLATELET VOLUME 9.8 fL (7.4-11.4); MONOCYTES # (AUTO) 0.9 10^3/uL (0.0-1.0); MONOCYTES % (AUTO) 4.3 %; NEUTROPHILS # (AUTO) 18.9 10^3/uL (1.5-6.6); NEUTROPHILS % (AUTO) 91.2 %; NRBC ABSOLUTE COUNT (AUTO) 0.03 x10^3/uL; NUCLEATED RED BLOOD CELLS AUTO 0.1 /100WBC; PLT - PLATELET COUNT 231 10^3/uL (130-450); RED BLOOD COUNT 5.02 10^6/uL (4.70-6.10); RED CELL DISTRIBUTION WIDTH 14.4 % (12.0-15.0); WHITE BLOOD COUNT 20.7 x10^3/uL (4.8-10.8)
[2022-02-21 00:17] LABS: INR 1.1 (0.8-1.2); PT - PROTHROMBIN TIME 12.3 secs (9.9-12.6)
[2022-02-21 01:06] LABS: ALBUMIN 3.4 g/dL (3.2-5.5); ALBUMIN/GLOBULIN RATIO 1.2 (1.0-2.2); BILIRUBIN,TOTAL 2.2 mg/dL (0.2-1.0); CALCIUM 8.6 mg/dL (8.5-10.3); CREATININE 2.6 mg/dL (0.6-1.2); POTASSIUM 4.2 mmol/L (3.5-5.0); TOTAL PROTEIN 6.2 g/dL (6.7-8.2)
[2022-02-21] MEDS ORDERED: LORazepam 2 MG/ML VIAL IVP STA (01:42)
[2022-02-21] MEDS ORDERED: ONDANSETRON 4 MG/2 ML VIAL IVP STA (01:42)
[2022-02-21] MEDS ORDERED: NOREPINEPHRINE/D5W 8 MG/250 ML BAG IV ONE (01:57)
[2022-02-21 02:16] LABS: GASTROCCULT POSITIVE (Negative)
[2022-02-21] MEDS ORDERED: NOREPINEPHRINE/D5W 8 MG/250 ML BAG IV STA (02:46)
[2022-02-21] MEDS ORDERED: IPRATROPIUM/ALBUTEROL 3 ML NEB INH STA (03:07)
[2022-02-21] MEDS: metroNIDAZOLE 500 MG/100 ML 500 MG/100 ML BAG IV SCH (04:41)
[2022-02-21 04:42] LABS: BASOPHILS # (AUTO) 0.1 10^3/uL (0.0-0.1); BASOPHILS % (AUTO) 0.2 %; EOSINOPHILS % (AUTO) 0.1 %; HCT - HEMATOCRIT 48.3 % (42.0-52.0); HGB - HEMOGLOBIN 15.1 g/dL (14.0-18.0); LYMPHOCYTES # (AUTO) 0.5 10^3/uL (1.5-3.5); MEAN CORPUSCULAR HEMOGLOBIN 30.7 pg (27.0-31.0); MEAN CORPUSCULAR HGB CONC 31.3 g/dL (32.0-36.0); MEAN CORPUSCULAR VOLUME 98.2 fL (80.0-94.0); MEAN PLATELET VOLUME 9.7 fL (7.4-11.4); MONOCYTES # (AUTO) 1.2 10^3/uL (0.0-1.0); MONOCYTES % (AUTO) 5.5 %; NEUTROPHILS # (AUTO) 20.6 10^3/uL (1.5-6.6); NEUTROPHILS % (AUTO) 91.6 %; PLT - PLATELET COUNT 232 10^3/uL (130-450); RED BLOOD COUNT 4.92 10^6/uL (4.70-6.10); RED CELL DISTRIBUTION WIDTH 14.5 % (12.0-15.0); WHITE BLOOD COUNT 22.5 x10^3/uL (4.8-10.8)
[2022-02-21 04:48] LABS: CALCIUM 8.7 mg/dL (8.5-10.3); CREATININE 3.5 mg/dL (0.6-1.2)
[2022-02-21 05:19] VITALS: BP 99/47
[2022-02-21 05:59] LABS: PLATELET ESTIMATE, MANUAL NORMAL (130-450,000) (NORMAL); PLATELET MORPHOLOGY NORMAL APPEARANCE (NORMAL); RBC MORPHOLOGY (MULTIPLE) NORMAL APPEARANCE (NORMAL); SLIDE REVIEW? Indicated; WBC MORPHOLOGY (MULTIPLE) NORMAL APPEARANCE (NORMAL)
[2022-02-21] MEDS ORDERED: PANTOPRAZOLE 40 MG TABLET PO SCH (07:00)
[2022-02-21] MEDS ORDERED: MULTIVITAMIN TABLET PO SCH (08:00)
[2022-02-21] MEDS ORDERED: ENOXAPARIN 40 MG/0.4 ML SYRINGE SUBQ SCH (09:00)
[2022-02-21] MEDS ORDERED: THIAMINE INJ 100 MG in SODIUM CHLORIDE 0.9% 50 ML IV SCH (09:00)
--- NOTE | 2022-02-21 10:09 | ED Physician Documentation ---
ED Addendum - Addendum Addendum: 02/21/22 10:09 Received sign out from Dr. Soares at change of shift, patient is pending disposition to appropriate hospital. He was initially evaluated by Dr. Mtz; please refer to their notes for complete H+P (Dr. Mtz) and ED addendum (Dr. Soares). Patient presented for shortness of breath as well as generalized abdominal pain. He has been afebrile. Initial WBC 10.2 but increased to 18 and then 20.7 on subsequent checks. His lactate was 6.9 on presentation, then >10 on two s ubsequent rechecks. LFTS initially unremarkable although subsequently his bilirubin elevated from the initial value of 0.9 to 2.2 (other LFTs remained unremarkable). Glucose initially 150, 278 and 266 on subsequent checks. He has had hypotension since early in his stay requiring levophed, subsequently dobutamine was started due to concern for cardiogenic shock based on bedside US performed by my ED colleague. There were no diagnostic nor concerning findings on CXR, CTA chest, CT A/P with IV contrast. Medications given also included vancomycin, cefipime, flagyl and zosyn. He was given solu-medrol as well as hydrocortisone. He received multiple nebulized treatments (albuterol, duonebs). I evaluated patient mutiple times during my ED shift before he was transferred (this period was from 8 PM until 5 AM when he was transferred); he denied abdominal pain throughout my shift and had no abdominal tenderness. He was dyspneic , mild improvement with another duoneb. He was on 15 l/m oxymask at time of signout (8 PM) but I subsequently changed this to 100% NRB due to pulse ox readings ranging from mid/upper 80s to lower 90s, and the duoneb and change to 100% NRB improved his pulse ox to 95-98%. His blood pressures ranged from 100s SBP to mid80's SBP , at times requiring upward titration of his levophed. EKG and troponin were unremarakble on presentation as well as repeat during my shift. He was T+R from this ED 02/19/22 for alcohol intoxication. I asked patient if he ingested any other intoxicants which he strongly denies. He is not diabetic, does not take metformin. At time of signout from Dr. Soares, [facility] had indicated they might have an appropriate bed available. I subsequently discussed the case with [facility] and they were able to find appropriate, available bed at [facility] ([place]). I discussed the case with Dr. Montemayor (ferris wheel attendant at [facility]); he agrees patient is appropriate for transfer to [facility] but voices concern that patie nt's hypoxia will likely worsen during air transport and asks that I consider intubating patient. Subsequently I was informed that neither of the available air transport services can fly due to whether issues. I again contacted Dr. Montemayor to update him, including the improvement with another duoneb with saturations maintaining mid/upper 90s. I informed him that he would be transferred by ground due to the whether restrictions but that at this time I do not feel intubation is necessary, and he defers to my judgment. EMS arrived, subsequently informed me that medic control recommends transfer by critical care ambulance ([facility]). [facility] was contacted and subsequently arrived and took patient to [facility].
== END 2022-02-21 05:20 | disposition short-term general hospital (02) ==
LOC: EDUNIT# → ED 13:51
DX: R57.9 Shock, unspecified (principal); I48.91 Unspecified atrial fibrillation; J44.1 Chronic obstructive pulmonary disease with (acute) exacerbation; I95.9 Hypotension, unspecified; F10.10 Alcohol abuse, uncomplicated; E87.1 Hypo-osmolality and hyponatremia; F17.200 Nicotine dependence, unspecified, uncomplicated; Z20.822 Contact with and (suspected) exposure to COVID-19
CPT/HCPCS: 36415; 36556; 71045; 71275; 74177; 80048; 80053; 80306; 80320; 81003; 82533; 82550; 82803; 83605; 83690; 83735; 83880; 84443; 84484; 85025; 85610; 87040; 87633; 93005; 94640; 96361; 96365; 96366; 96367; 96368; 96375; 96376; 99291; 99292; A9270; J1250; J2060; J2765; J3370; J7120; Q9967; 81001; 87086

== ENCOUNTER 2022-03-11 21:24 | Outpatient (CLI) | payer MEDICAID | END 2022-03-11 21:25 | disposition critical access hospital (66) | LOC: EMS 21:24 | DX: R05.9 Cough, unspecified (principal); R06.00 Dyspnea, unspecified; M54.50 Low back pain, unspecified; R07.9 Chest pain, unspecified | CPT/HCPCS: A0425; A0427; A0999 ==

== ENCOUNTER 2022-03-11 21:37 | Emergency (ER) | payer MEDICAID ==
--- NOTE | 2022-03-11 21:57 | ED Physician Documentation ---
PD HPI DYSPNEA - Stated complaint Stated Complaint: SOA/COUGH - Chief complaint Chief Complaint: Resp - History obtained from History obtained from: Patient, EMS - History of Present Illness Timing - onset: How many days ago (3) Timing - details: Gradual onset Pain level now: 5 (diffuse/generalized myalgias) Improved by: Rest Worsened by: Exertion Associated symptoms: Fever (subjective (reports feeling like he has been having fever but not measured at home)), Cough, Wheezing. No: Hemoptysis, Chest pain / discomfort Recently seen: Admitted - Additional information Additional information: HPI is from patient with supplemental information provided by EMS. Patient is brought in by ambulance. Patient complains of 3 days of productive cough, shortness of breath. He says he is also been having fevers for 2 to 3 days although he has not measured his temperature at home. Patient is also complaining of generalized headache and diffuse, generalized myalgias. On my HPI, he denies chest pain except as part of his generalized and diffuse body aches. Patient was transferred from this emergency department to [facility] in [place]. He was initially evaluated in this emergency department February 20 but due to lack of bed availability he was not able to be transferred until February 21. At the time of transfer, he was on 2 pressors for severe hypotension and was also hypoxic. At the time it was unclear what was causing his signs and symptoms but as patient became more awake and alert at [place], he admitted to intentionally overdosing on calcium channel blockers. During his stay at [facility], he required hemodialysis for acute kidney injury but this was discontinued as his kidney function improved. Patient was given a DuoNeb en route by EMS. Review of Systems Constitutional: reports: Fever (Subjective), Myalgias Cardiac: denies: Palpitations Respiratory: reports: Dyspnea, Cough, Wheezing. denies: Hemoptysis GI: reports: Reviewed and negative : denies: Dysuria, Frequency Neurologic: reports: Headache. denies: Generalized weakness, Focal weakness, Numbness PD PAST MEDICAL HISTORY - Past Medical History Cardiovascular: Atrial fibrillation Respiratory: COPD, Pneumonia, Shortness of breath Neuro: None Endocrine/Autoimmune: None GI: None : None Psych: None Musculoskeletal: Chronic back pain, Other Derm: Other - Past Surgical History Past Surgical History: Yes General: Other - Present Medications Home Medications: Ambulatory Orders Medication Instructions Recorded Confirmed Albuterol Sulfate [Albuterol 2 puffs INH Q6H PRN 07/08/19 07/26/20 Sulfate Hfa] Buspirone HCl 10 mg PO BID 12/12/19 07/26/20 Fluoxetine HCl [Prozac] 20 mg PO DAILY 12/12/19 07/26/20 QUEtiapine [SEROquel] 12.5 mg PO QPM 12/12/19 07/26/20 LORazepam [Ativan] 1 mg PO Q8H PRN #10 tablet 12/13/19 07/26/20 diltiaZEM CD [Cardizem Cd] 240 mg PO DAILY #15 capsule 12/13/19 07/26/20 Gabapentin 300 mg PO DAILY 01/05/20 07/26/20 Benzonatate [Tessalon] 100 cap PO TID PRN 03/11/22 03/11/22 Digoxin [Lanoxin] 1 tab PO DAILY 03/11/22 03/11/22 Metoprolol Succinate [Toprol Xl] 200 mg PO DAILY 03/11/22 03/11/22 Albuterol Sulf [Ventolin Hfa 2 - 3 puffs INH Q4HR PRN #1 each 03/12/22 Inhaler] dexAMETHasone [Decadron] 4 mg PO DAILY #5 tablet 03/12/22 - Allergies Allergies/Adverse Reactions: Allergies Allergy/AdvReac Type Severity Reaction Status Date / Time cat dander Allergy Watery Verified 03/11/22 21:47 eyes/itching dog dander Allergy Watery Verified 03/11/22 21:47 eyes/itching house dust Allergy Watery Verified 03/11/22 21:47 eyes/itching - Social History Does the pt smoke?: Yes Smoking Status: Current every day smoker Does the pt drink ETOH?: Yes Does the pt have substance abuse?: No - Immunizations Immunizations are current?: Yes - POLST Patient has POLST: No PD ED PE NORMAL - Vitals Vital signs reviewed: Yes - General General: Alert and oriented X 3, No acute distress, Well developed/nourished - HEENT HEENT: Moist mucous membranes - Cardiac Cardiac: No murmur - Respiratory Respiratory: No respiratory distress - Abdomen Abdomen: Soft, Non tender - Derm Derm: Normal color, Warm and dry - Extremities Extremities: No edema - Neuro Neuro: Alert and oriented X 3 Eye Opening: Spontaneous Motor: Obeys Commands Verbal: Oriented GCS Score: 15 PD ED PE EXPANDED - Cardiac Cardiac: Irregularly irregular - Respiratory Respiratory: Wheezing (Bilateral expiratory wheezing in all lung weaver), Decreased breath sounds Results - Vitals Vitals: Vital Signs - 24 hr 03/11/22 03/11/22 03/11/22 21:40 22:06 22:17 Temperature 36.1 C L Heart Rate 137 H 151 H 117 H Respiratory 20 20 23 Rate Blood Pressure 122/98 H 134/119 H 103/65 O2 Saturation 93 93 93 03/11/22 03/11/22 03/11/22 22:35 22:40 23:00 Temperature Heart Rate 137 H 112 H 139 H Respiratory 21 22 17 Rate Blood Pressure 100/75 90/63 O2 Saturation 94 94 03/11/22 03/11/22 03/12/22 23:09 23:38 00:14 Temperature Heart Rate 134 H 119 H 127 H Respiratory 21 23 Rate Blood Pressure 90/63 116/94 H 130/87 H O2 Saturation 94 97 03/12/22 03/12/22 03/12/22 00:27 00:42 01:01 Temperature 36.3 C L 36.3 C L Heart Rate 139 H 111 H 120 H Respiratory 24 19 18 Rate Blood Pressure 112/66 125/95 H 227/74 H O2 Saturation 94 94 94 03/12/22 03/12/22 03/12/22 01:11 01:29 01:42 Temperature Heart Rate 126 H 120 H 139 H Respiratory 17 20 18 Rate Blood Pressure 115/77 136/90 H 118/105 H O2 Saturation 95 95 94 03/12/22 03/12/22 03/12/22 01:55 02:10 02:31 Temperature 35.8 C L Heart Rate 139 H 127 H 120 H Respiratory 24 24 20 Rate Blood Pressure 118/105 H 136/85 H 115/70 O2 Saturation 100 95 95 03/12/22 03/12/22 03/12/22 02:35 02:45 03:10 Temperature 36.9 C Heart Rate 137 H 110 H 115 H Respiratory 19 23 20 Rate Blood Pressure 133/100 H 103/85 H 101/76 O2 Saturation 95 96 94 03/12/22 03/12/22 03/12/22 03:21 03:40 04:18 Temperature Heart Rate 107 H 117 H 102 H Respiratory 16 15 21 Rate Blood Pressure 101/76 121/76 114/86 H O2 Saturation 96 97 94 03/12/22 03/12/22 03/12/22 04:40 04:59 05:04 Temperature 37.1 C Heart Rate 112 H 108 H 125 H Respiratory 23 25 H 18 Rate Blood Pressure 103/82 H 103/82 H 110/88 H O2 Saturation 97 98 96 03/12/22 03/12/22 03/12/22 05:33 05:43 06:00 Temperature Heart Rate 132 H 78 122 H Respiratory 22 17 25 H Rate Blood Pressure 105/78 105/78 103/81 H O2 Saturation 95 97 94 03/12/22 03/12/22 03/12/22 06:22 07:00 07:38 Temperature 36.3 C L Heart Rate 117 H 112 H 91 Respiratory 20 22 27 H Rate Blood Pressure 103/81 H 95/74 103/78 O2 Saturation 96 95 97 03/12/22 03/12/22 03/12/22 08:20 08:32 09:05 Temperature Heart Rate 69 128 H 125 H Respiratory 20 25 H 20 Rate Blood Pressure 106/73 104/68 95/72 O2 Saturation 98 98 95 03/12/22 03/12/22 10:00 10:39 Temperature Heart Rate 100 100 Respiratory 21 18 Rate Blood Pressure 112/65 O2 Saturation 97 Oxygen O2 Source Room air - EKG (time done) No standard instances Rate: Rate (enter#) (140) Rhythm: Atrial flutter - Labs Labs: Laboratory Tests 03/11/22 03/11/22 03/11/22 21:51 21:51 21:51 WBC 4.0 L RBC 3.89 L Hgb 12.1 L Hct 38.3 L MCV 98.5 H MCH 31.1 H MCHC 31.6 L RDW 14.5 Plt Count 273 MPV 9.9 Neut # (Auto) 1.8 Lymph # (Auto) 1.5 Emmet # (Auto) 0.6 Eos # (Auto) 0.1 Baso # (Auto) 0.1 Absolute Nucleated RBC 0.00 Nucleated RBC % 0.0 VBG pH VBG pCO2 VBG pO2 VBG HCO3 VBG Total CO2 VBG O2 Saturation VBG Base Excess Sodium 138 Potassium 4.5 Chloride 102 Carbon Dioxide 25 Anion Gap 11.0 BUN 43 H Creatinine 2.1 H Estimated GFR (MDRD) 32 L Glucose 145 H Calcium 8.7 Magnesium 1.7 Total Bilirubin 0.8 AST 33 ALT 36 Alkaline Phosphatase 52 B-Natriuretic Peptide 40 Total Protein 6.6 L Albumin 3.8 Globulin 2.8 Albumin/Globulin Ratio 1.4 TSH Nasal Adenovirus (PCR) Nasal B. parapertussis DNA (PCR) Nasal Coronavir 229E PCR Nasal Coronavir HKU1 PCR Nasal Coronavir NL63 PCR Nasal Coronavir OC43 PCR Nasal Enterovir/Rhinovir PCR Nasal Influenza B PCR Nasal Influenza A PCR Nasal Parainfluen 1 PCR Nasal Parainfluen 2 PCR Nasal Parainfluen 3 PCR Nasal Parainfluen 4 PCR Nasal RSV (PCR) Nasal B.pertussis DNA PCR Nasal C.pneumoniae (PCR) Khoa Human Metapneumo PCR Nasal M.pneumoniae (PCR) Nasal SARS-CoV-2 (PCR) Digoxin Ethyl Alcohol < 5.0 03/11/22 03/11/22 03/11/22 21:51 21:51 21:51 WBC RBC Hgb Hct MCV MCH MCHC RDW Plt Count MPV Neut # (Auto) Lymph # (Auto) Emmet # (Auto) Eos # (Auto) Baso # (Auto) Absolute Nucleated RBC Nucleated RBC % VBG pH 7.350 VBG pCO2 42.6 VBG pO2 40.8 VBG HCO3 23.0 VBG Total CO2 24.3 VBG O2 Saturation 77.9 VBG Base Excess -2.6 L Sodium Potassium Chloride Carbon Dioxide Anion Gap BUN Creatinine Estimated GFR (MDRD) Glucose Calcium Magnesium Total Bilirubin AST ALT Alkaline Phosphatase B-Natriuretic Peptide Total Protein Albumin Globulin Albumin/Globulin Ratio TSH 3.20 Nasal Adenovirus (PCR) Nasal B. parapertussis DNA (PCR) Nasal Coronavir 229E PCR Nasal Coronavir HKU1 PCR Nasal Coronavir NL63 PCR Nasal Coronavir OC43 PCR Nasal Enterovir/Rhinovir PCR Nasal Influenza B PCR Nasal Influenza A PCR Nasal Parainfluen 1 PCR Nasal Parainfluen 2 PCR Nasal Parainfluen 3 PCR Nasal Parainfluen 4 PCR Nasal RSV (PCR) Nasal B.pertussis DNA PCR Nasal C.pneumoniae (PCR) Khoa Human Metapneumo PCR Nasal M.pneumoniae (PCR) Nasal SARS-CoV-2 (PCR) Digoxin < 0.2 Ethyl Alcohol 03/11/22 22:05 WBC RBC Hgb Hct MCV MCH MCHC RDW Plt Count MPV Neut # (Auto) Lymph # (Auto) Emmet # (Auto) Eos # (Auto) Baso # (Auto) Absolute Nucleated RBC Nucleated RBC % VBG pH VBG pCO2 VBG pO2 VBG HCO3 VBG Total CO2 VBG O2 Saturation VBG Base Excess Sodium Potassium Chloride Carbon Dioxide Anion Gap BUN Creatinine Estimated GFR (MDRD) Glucose Calcium Magnesium Total Bilirubin AST ALT Alkaline Phosphatase B-Natriuretic Peptide Total Protein Albumin Globulin Albumin/Globulin Ratio TSH Nasal Adenovirus (PCR) NOT DETECTED Nasal B. parapertussis DNA (PCR) NOT DETECTED Nasal Coronavir 229E PCR NOT DETECTED Nasal Coronavir HKU1 PCR NOT DETECTED Nasal Coronavir NL63 PCR NOT DETECTED Nasal Coronavir OC43 PCR NOT DETECTED Nasal Enterovir/Rhinovir PCR NOT DETECTED Nasal Influenza B PCR NOT DETECTED Nasal Influenza A PCR NOT DETECTED Nasal Parainfluen 1 PCR NOT DETECTED Nasal Parainfluen 2 PCR NOT DETECTED Nasal Parainfluen 3 PCR DETECTED A Nasal Parainfluen 4 PCR NOT DETECTED Nasal RSV (PCR) NOT DETECTED Nasal B.pertussis DNA PCR NOT DETECTED Nasal C.pneumoniae (PCR) NOT DETECTED Khoa Human Metapneumo PCR NOT DETECTED Nasal M.pneumoniae (PCR) NOT DETECTED Nasal SARS-CoV-2 (PCR) NOT DETECTED Digoxin Ethyl Alcohol - Rads (name of study) chest xray Radiology: Prelim report reviewed, EMP read indepedently, See rad report PD Medical Decision Making - ED course Complexity details: reviewed old records, considered differential, d/w patient Reviewed Lab Results: Blood test ordered include CBC, your abdominal panel, VBG, nasal respiratory PCR panel, chest x-ray, EKG. Tonight, his BUN and creatinine are comparable to the results noted on the information faxed from [facility] on the day of his discharge March 10 from that hospital. ED course: Discharge summary and lab tests from [facility] were requested and were faxed and reviewed by me.These records indicate that his BUN and creatinine at the time of discharge on March 10 were 44 and 2.29, respectively.These records also indicate that he had A. fib/flutter during his hospital stay and at the time of discharge, and was discharged on metoprolol and digoxin with his calcium channel shirin having been discontinued due to his overdose. On tonight's tests, his respiratory PCR panel is positive for parainfluenza 3 which is a likely explanation for his generalized myalgias and dyspnea. He was negative for the other viruses tested on this panel including COVID and influenza. My interpretation of the chest x-ray, I do not see any acute nor concerning findings. Specifically, no evidence of infiltrate, pneumothorax, CHF. Early in his ED stay, he is in atrial flutter with RVR with ventricular rates 120s to 140s. He is given 15 mg IV diltiazem with minimal improvement and Subsequently given 10 mg IV diltiazem with again only mild improvement in his heart rate, remaining tachycardic with heart rate of 110s-130s. He was then started on diltiazem drip which was steadily titrated up in attempt to control his heart rate.He was also given 50 mg p.o. metoprolol and with this medication as well as the diltiazem drip, there was eventually good, though not consistent, rate control; he remained in atrial flutter on the monitor and heart rate was 70s to 80s (ventricular rate), but at times would increase to 100s to 110s. He was given duoneb en route by EMS and in ED he is given xopenex neb and IV decadron, And on subsequent reevaluation he reports relief of his shortness of breath his cough. On reexam, his lungs are now clear to auscultation bilaterally. The ongoing problem with this patient for most of his ER stay has been heart rate control. The plan is to admit the patient once a bed becomes available; at the time of the end of my shift, and during my ER overnight shift, there were and are no beds available at [facility] nor at surrounding local and regional hospitals. The care of the patient is signed out to Dr. Ferrer at end of my shift pending disposition. Departure - Departure Disposition: 01 Home, Self Care Clinical Impression: Rapid atrial fibrillation, Infection due to parainfluenza virus 3 Condition: Stable Prescriptions: Albuterol Sulf [Ventolin Hfa Inhaler] 2 - 3 puffs INH Q4HR PRN #1 each PRN Reason: Shortness Of Air/Wheezing dexAMETHasone [Decadron] 4 mg PO DAILY #5 tablet Comments: You are still in atrial flutter/fibrillation. Your heart rate seems to be rate controlled over the past several hours with the rate being 80-100. Continue with your usual prescription metoprolol and digoxin. You did have an oral dose today so called your home medication till tomorrow morning. Take a baby aspirin daily. Continue your other usual medications. You do have parainfluenza virus which is causing your cough and illness and some trouble breathing. I would suggest using the albuterol inhaler 2 to 3 puffs 4 times daily regularly for the next week to 10 days. I sent prescriptions to [facility] pharmacy. Decadron steroid for inflammation of the bronchioles to help with breathing as well. Stay well-hydrated otherwise. Tylenol if needed for fevers or pains. Return if worsening. Follow-up with your primary care. Discharge Date/Time: 03/12/22 11:53
[2022-03-11 21:58] LABS: BASOPHILS # (AUTO) 0.1 10^3/uL (0.0-0.1); BASOPHILS % (AUTO) 1.3 %; EOSINOPHILS # (AUTO) 0.1 10^3/uL (0.0-0.7); EOSINOPHILS % (AUTO) 2.8 %; HCT - HEMATOCRIT 38.3 % (42.0-52.0); HGB - HEMOGLOBIN 12.1 g/dL (14.0-18.0); LYMPHOCYTES # (AUTO) 1.5 10^3/uL (1.5-3.5); LYMPHOCYTES % (AUTO) 37.3 %; MEAN CORPUSCULAR HEMOGLOBIN 31.1 pg (27.0-31.0); MEAN CORPUSCULAR HGB CONC 31.6 g/dL (32.0-36.0); MEAN CORPUSCULAR VOLUME 98.5 fL (80.0-94.0); MEAN PLATELET VOLUME 9.9 fL (7.4-11.4); MONOCYTES # (AUTO) 0.6 10^3/uL (0.0-1.0); MONOCYTES % (AUTO) 14.3 %; NEUTROPHILS # (AUTO) 1.8 10^3/uL (1.5-6.6); NEUTROPHILS % (AUTO) 43.8 %; PLT - PLATELET COUNT 273 10^3/uL (130-450); RED BLOOD COUNT 3.89 10^6/uL (4.70-6.10); RED CELL DISTRIBUTION WIDTH 14.5 % (12.0-15.0)
[2022-03-11 22:00] LABS: VBG PCO2 42.6 mmHg (41-51); VBG PH 7.35 (7.31-7.41)
[2022-03-11 22:01] LABS: VBG BASE EXCESS -2.6 mmol/L (-2 - +2); VBG OXYGEN SATURATION 77.9 % (60-80); VBG PO2 40.8 mmHg (25-47); VBG TOTAL CO2 24.3 mmol/L (24-29)
[2022-03-11] MEDS ORDERED: LEVALBUTEROL 1.25 MG/3 ML NEB INH STA (22:06)
[2022-03-11] MEDS ORDERED: METOPROLOL 5 MG/5 ML VIAL IVP STA (22:06)
[2022-03-11] MEDS ORDERED: diltiaZEM INJ 5 MG/ML VIAL IVP STA ×2 (22:07→23:00)
[2022-03-11] MEDS ORDERED: DEXAMETHASONE 10 MG/ML VIAL IVP STA (22:08)
[2022-03-11 22:20] LABS: ALBUMIN 3.8 g/dL (3.2-5.5); ALBUMIN/GLOBULIN RATIO 1.4 (1.0-2.2); ALKALINE PHOSPHATASE 52 IU/L (42-121); ALT ALANINE AMINOTRANSFERASE 36 IU/L (10-60); AST ASPARTATE AMINOTRANSFERASE 33 IU/L (10-42); BILIRUBIN,TOTAL 0.8 mg/dL (0.2-1.0); BUN - BLOOD UREA NITROGEN 43 mg/dL (6-20); CALCIUM 8.7 mg/dL (8.5-10.3); CARBON DIOXIDE - CO2 25 mmol/L (21-32); CHLORIDE 102 mmol/L (101-111); ETOH - ETHANOL < 5.0 mg/dL; GLUCOSE 145 mg/dL (70-100); MAGNESIUM 1.7 mg/dL (1.7-2.8); POTASSIUM 4.5 mmol/L (3.5-5.0); SODIUM 138 mmol/L (135-145); TOTAL PROTEIN 6.6 g/dL (6.7-8.2)
[2022-03-11 22:33] LABS: CREATININE 2.1 mg/dL (0.6-1.2); GFR - MDRD 32 (>89)
[2022-03-11 22:53] LABS: DIGOXIN < 0.2 ng/mL
[2022-03-11] MEDS ORDERED: MORPHINE 2 MG/ML CARPUJECT IVP STA (22:59)
[2022-03-11 23:00] LABS: CORONAVIRUS 229E-RESP PCR NOT DETECTED; CORONAVIRUS HKU1-RESP PCR NOT DETECTED; CORONAVIRUS NL63-RESP PCR NOT DETECTED; CORONAVIRUS OC43-RESP PCR NOT DETECTED; HUMAN METAPNEUMOVIRUS NOT DETECTED; INFLUENZA A- RESP PCR PANEL NOT DETECTED; INFLUENZA B - RESP PCR PANEL NOT DETECTED; PARAINFLUENZA VIRUS 1 NOT DETECTED; PARAINFLUENZA VIRUS 2 NOT DETECTED; RHINOVIRUS/ENTEROVIRUS NOT DETECTED; SARS-CoV-2 -RESP PCR PANEL NOT DETECTED
[2022-03-11] MEDS ORDERED: ACETAMINOPHEN 325 MG TABLET PO STA (23:00)
[2022-03-11 23:01] LABS: B. PARAPERTUSSIS- RESP PCR PAN NOT DETECTED; B. PERTUSSIS- RESP PCR PANEL NOT DETECTED; C. PNEUMONIAE- RESP PCR PANEL NOT DETECTED; M. PNEUMONIAE- RESP PCR PANEL NOT DETECTED; PARAINFLUENZA VIRUS 3 DETECTED; PARAINFLUENZA VIRUS 4 NOT DETECTED; RSV- RESP PCR PANEL NOT DETECTED
[2022-03-11] MEDS ORDERED: ACETAMINOPHEN 325 MG TABLET PO ONE (23:02)
[2022-03-11] MEDS ORDERED: SODIUM CHLORIDE 0.9% 500 ML IV STA (23:09)
[2022-03-11] MEDS ORDERED: SODIUM CHLORIDE 0.9% 1,000 ML IV STA (23:10)
[2022-03-11] MEDS ORDERED: DIGOXIN 125 MCG TABLET PO STA (23:12)
--- NOTE | 2022-03-11 23:38 | XRAY Report ---
PROCEDURE: Chest 1 View X-Ray INDICATIONS: dyspnea TECHNIQUE: One view of the chest was acquired. COMPARISON: Chest x-ray 02/20/2022. FINDINGS: Surgical changes and devices: None. Lungs and pleura: There is bony vascular prominence compatible with mild pulmonary edema. No focal c onsolidation. A few linear opacities in the left lung base likely represent scarring or atelectasis. No definite pleural effusions or pneumothorax. Mediastinum: Mediastinal contours appear normal. Heart size is normal. Bones and chest wall: No suspicious bony lesions. Overlying soft tissues appear unremarkable. IMPRESSION: 1. Pulmonary vascular prominence suggestive of mild pulmonary edema. Reviewed by: Omkar Alcantar MD on 03/11/2022 11:47 PM PST Approved by: Omkar Alcantar MD on 03/11/2022 11:47 PM PST Station ID: [id number]
[2022-03-12] MEDS ORDERED: diltiaZEM INJ 125 MG in DEXTROSE 5% 100 ML IV STA (00:23)
[2022-03-12] MEDS ORDERED: diltiaZEM INJ 5 MG/ML VIAL ONE (00:32)
[2022-03-12] MEDS ORDERED: MORPHINE 2 MG/ML CARPUJECT IVP STA (01:59)
[2022-03-12] MEDS ORDERED: METOPROLOL TARTRATE 50 MG TABLET PO STA (04:29)
[2022-03-12] MEDS ORDERED: LORazepam 2 MG/ML VIAL IVP STA (04:57)
[2022-03-12] MEDS ORDERED: SODIUM CHLORIDE 0.9% 500 ML IV STA (07:19)
[2022-03-12] MEDS ORDERED: METOPROLOL 5 MG/5 ML VIAL IVP STA (07:50)
[2022-03-12] MEDS ORDERED: DIGOXIN 500 MCG/2 ML AMP IVP STA (07:51)
[2022-03-12] MEDS ORDERED: METOPROLOL SUCCINATE 50 MG TABLET PO STA (09:24)
[2022-03-12] MEDS ORDERED: ALBUTEROL 1 PUFF INH STA (09:25)
[2022-03-12] MEDS ORDERED: SODIUM CHLORIDE 0.9% 250 ML IV STA (09:31)
[2022-03-12 10:16] VITALS: BP 112/65
--- NOTE | 2022-03-12 11:50 | ED Physician Documentation ---
ED Addendum - Addendum Addendum: 03/12/22 11:47 The patient is feeling better. He was given a nebulizer treatment along with a dose of steroid for his parainfluenza with cough and some wheeziness. He does have some underlying asthma on uses or COPD and uses an albuterol inhaler as needed. Regarding his atrial fib flutter, the QRS heart rate seems to be 80-100. The heart monitor is reading the flutter waves episodically and ranging from 80-160 with mostly reading 1 20-1 50. However evaluation of the telemetry strip shows it to be mainly if flutter with a ventricular response rate 80-100. The patient's blood pressure is doing adequate. His oxygenation is good. At this point the patient would like to be discharged home. He had been off the diltiazem drip at the start of my shift. He was given metoprolol 5 mg IV just prior. I gave him 100 mg of metoprolol p.o. which is half of his 200 mg dose. This is to compensate for the other rate limiting medications having been given this morning. The patient is discharged home in improved condition with rate control of his atrial fib flutter and a improvement in his feeling of dyspnea and cough. He does not appear to be in failure. Vitals are good. Disposition: The patient discharged home in stable condition. Diagnoses: 1. Cough and dyspnea 2. Parainfluenza 3 infection 3. COPD exacerbation 4. Atrial fib flutter with rapid ventricular response
== END 2022-03-12 11:53 | disposition home or self-care (01) ==
LOC: EDBD → EDUNIT# → ED 21:37
DX: B34.8 Other viral infections of unspecified site (principal); J44.1 Chronic obstructive pulmonary disease with (acute) exacerbation; I48.20 Chronic atrial fibrillation, unspecified; F17.200 Nicotine dependence, unspecified, uncomplicated; Z20.822 Contact with and (suspected) exposure to COVID-19
CPT/HCPCS: 36415; 71045; 80050; 80162; 80320; 82803; 83735; 83880; 87633; 93005; 94640; 94664; 96361; 96365; 96366; 96375; 96376; 99285; A9270; J2060

== ENCOUNTER 2022-04-27 09:20 | Outpatient (CLI) | payer MEDICAID ==
[2022-04-27 12:54] LABS: BASOPHILS # (AUTO) 0.1 10^3/uL (0.0-0.1); EOSINOPHILS # (AUTO) 0.1 10^3/uL (0.0-0.7); EOSINOPHILS % (AUTO) 1.1 %; HCT - HEMATOCRIT 42.7 % (42.0-52.0); LYMPHOCYTES % (AUTO) 30.7 %; MEAN CORPUSCULAR HEMOGLOBIN 32.1 pg (27.0-31.0); MEAN CORPUSCULAR HGB CONC 32.8 g/dL (32.0-36.0); MEAN CORPUSCULAR VOLUME 97.9 fL (80.0-94.0); MEAN PLATELET VOLUME 10.7 fL (7.4-11.4); MONOCYTES # (AUTO) 0.8 10^3/uL (0.0-1.0); MONOCYTES % (AUTO) 8.6 %; NEUTROPHILS # (AUTO) 5.6 10^3/uL (1.5-6.6); NEUTROPHILS % (AUTO) 57.7 %; PLT - PLATELET COUNT 279 10^3/uL (130-450); RED BLOOD COUNT 4.36 10^6/uL (4.70-6.10); RED CELL DISTRIBUTION WIDTH 14.2 % (12.0-15.0); WHITE BLOOD COUNT 9.8 x10^3/uL (4.8-10.8)
[2022-04-27 13:30] LABS: ALBUMIN 3.8 g/dL (3.2-5.5); ALBUMIN/GLOBULIN RATIO 1.2 (1.0-2.2); BILIRUBIN,TOTAL 0.6 mg/dL (0.2-1.0); CALCIUM 10.4 mg/dL (8.5-10.3); CREATININE 1.1 mg/dL (0.6-1.2); POTASSIUM 4.1 mmol/L (3.5-5.0)
[2022-04-27 13:34] LABS: THYROID STIMULATING HORMONE 1.76 uIU/mL (0.34-5.60)
== END 2022-04-27 09:21 | disposition home or self-care (01) ==
LOC: LAB.N 09:20
PROVIDERS: ATTEND Physician Assistant Medical
DX: N17.9 Acute kidney failure, unspecified (principal); I48.92 Unspecified atrial flutter
CPT/HCPCS: 36415; 80050

== ENCOUNTER 2022-06-12 13:21 | Outpatient (CLI) | payer MEDICAID ==
[2022-06-12 17:49] LABS: BASOPHILS # (AUTO) 0.1 10^3/uL (0.0-0.1); BASOPHILS % (AUTO) 1.5 %; EOSINOPHILS # (AUTO) 0.2 10^3/uL (0.0-0.7); EOSINOPHILS % (AUTO) 1.9 %; HCT - HEMATOCRIT 46.6 % (42.0-52.0); HGB - HEMOGLOBIN 14.8 g/dL (14.0-18.0); LYMPHOCYTES # (AUTO) 2.6 10^3/uL (1.5-3.5); LYMPHOCYTES % (AUTO) 29.7 %; MEAN CORPUSCULAR HEMOGLOBIN 31.8 pg (27.0-31.0); MEAN CORPUSCULAR HGB CONC 31.8 g/dL (32.0-36.0); MEAN CORPUSCULAR VOLUME 100.2 fL (80.0-94.0); MEAN PLATELET VOLUME 11.2 fL (7.4-11.4); MONOCYTES # (AUTO) 0.8 10^3/uL (0.0-1.0); MONOCYTES % (AUTO) 9.1 %; NEUTROPHILS % (AUTO) 57.2 %; PLT - PLATELET COUNT 264 10^3/uL (130-450); RED BLOOD COUNT 4.65 10^6/uL (4.70-6.10); RED CELL DISTRIBUTION WIDTH 13.4 % (12.0-15.0); WHITE BLOOD COUNT 8.8 x10^3/uL (4.8-10.8)
[2022-06-12 17:58] LABS: CALCIUM 9.3 mg/dL (8.5-10.3); CREATININE 1.3 mg/dL (0.6-1.2); POTASSIUM 4.4 mmol/L (3.5-5.0)
== END 2022-06-12 13:22 | disposition home or self-care (01) ==
LOC: LAB.N 13:21
PROVIDERS: ATTEND Internal Medicine Cardiovascular Disease
DX: I48.3 Typical atrial flutter (principal)
CPT/HCPCS: 36415; 80048; 85025

== ENCOUNTER 2023-01-12 07:07 | Outpatient (CLI) | payer MEDICAID | END 2023-01-12 07:08 | disposition home or self-care (01) | LOC: LAB.N 07:07 | PROVIDERS: ATTEND Internal Medicine Cardiovascular Disease | DX: Z53.9 Procedure and treatment not carried out, unspecified reason (principal) ==